=== PATIENT | male | born 1945 | race Caucasian/White ===

== ENCOUNTER → 2017-04-09 | Outpatient (CLI) | payer BC, MEDICARE | END | disposition home or self-care (01) | LOC: LABWHC1 14:00 | PROVIDERS: ATTEND Internal Medicine Clinical Cardiac Electrophysiology | DX: Z53.9 Procedure and treatment not carried out, unspecified reason (principal) ==

== ENCOUNTER 2017-07-07 12:22 | Day surgery (SDC) | payer MEDICARE ==
[2017-07-06 11:20] VITALS: BMI 29.1
[~2017-07-07 12:22] MED LIST: LACTATED RINGERS 1,000 ML IV SCH; MIDAZOLAM 2 MG/2 ML VIAL IV PRN; ceFAZolin 1,000 MG in SODIUM CHLORIDE 0.9% IRRIGATIO 250 ML IRRIGATION ONE; ceFAZolin IN SWFI 2 GM/20 ML SYRINGE IVP ONE; fentaNYL (PF) 50 MCG/ML 2 ML AMP IV PRN
[2017-07-07 15:22] LABS: Basophils % (A) 0 %; Eosinophils # (A) 0.1 k/uL (0-0.7); Eosinophils % (A) 2 %; HCT 46.5 % (39.0-53.0); HGB 14.6 gm/dL (13.0-17.5); Hypochromasia Slight; Lymphocytes # (A) 0.9 k/uL (1.0-4.8); Lymphocytes % (A) 14 %; MCHC 31.4 g/dL (31.0-37.0); Mean Platelet Volume 10.2; Monocytes # (A) 0.6 k/uL (0-1.0); Monocytes % (A) 10 %; Neutrophils # (A) 4.6 k/uL (1.3-7.7); Neutrophils % (A) 72 %; Platelet Count 187 k/uL (150-450); RBC 5.23 m/uL (4.30-5.90); RDW 14.8 % (11.5-15.5); WBC 6.4 k/uL (3.8-10.6)
[2017-07-07 15:30] LABS: Calcium 9.3 mg/dL (8.4-10.2)
[2017-07-07] MEDS ORDERED: MIDAZOLAM 2 MG/2 ML VIAL ONE (16:16)
[2017-07-07] MEDS ORDERED: IV FLUID CONTINUATION 1,000 ML IV ONE (16:16)
[2017-07-07] MEDS ORDERED: KETAMINE 10 MG/ML 20 ML VIAL ONE (16:16)
[2017-07-07] MEDS ORDERED: fentaNYL (PF) 50 MCG/ML 2 ML AMP ONE (16:16)
[2017-07-07] MEDS ORDERED: PROPOFOL 10 MG/ML 20 ML VIAL IV ONE (16:16)
[2017-07-07] MEDS ORDERED: IOPAMIDOL-250 50ML BTL IV ONE (16:35)
[2017-07-07] MEDS ORDERED: LIDOCAINE 1% INJ 10MG/ML (20 ML MDV) ONE ×2 (16:42)
[2017-07-07] MEDS ORDERED: ACETAMINOPHEN TAB 325 MG TAB PO PRN (16:43)
[2017-07-07] MEDS ORDERED: HYDROcodone/APAP 5-325MG 1 EACH TAB PO PRN (16:43)
[2017-07-07] MEDS ORDERED: LIDOCAINE 1% INJ 10MG/ML (20 ML MDV) SQ ONE (16:58)
[2017-07-07] MEDS ORDERED: LOSARTAN 25 MG TAB PO SCH (18:15)
[2017-07-07] MEDS ORDERED: FINASTERIDE 5 MG TAB PO SCH (18:15)
[2017-07-07] MEDS ORDERED: CLOPIDOGREL 75 MG TAB PO SCH (18:15)
[2017-07-07] MEDS ORDERED: SPIRONOLACTONE 25 MG TAB PO SCH (18:15)
[2017-07-07] MEDS ORDERED: FAMOTIDINE 20 MG TAB PO SCH (18:15)
[2017-07-07] MEDS ORDERED: ACETAMINOPHEN IV (For NPO) 1,000 MG in EMPTY BAG 1 BAG IVPB ONE (19:00)
--- NOTE | 2017-07-07 19:36 | CE ---
CARDIAC ELECTROPHYSIOLOGY REPORT Kulwant Fernandes is a 72-year-old male patient with ischemic cardiomyopathy, old [place], coronary artery bypass grafting several years back, severe LV dysfunction, ejection fraction by recent stress test was 28%. Previously, his ejection fraction was 35%. He is on appropriate medical treatment. He also has CKD stage 3, sick sinus syndrome with chronotropic incompetence, frequent PVCs, ventricular couplets, nonsustained ventricular tachycardia, who underwent a dual-chamber ICD for primary prevention of sudden cardiac and management of sick sinus syndrome. PROCEDURE: The patient brought to the EP lab in a fasting state. Written informed consent was obtained prior to the procedure. The left shoulder area was prepped and draped as per protocol. 1% lidocaine was used for local anesthesia. A 4 cm incision was made parallel to the deltopectoral groove, about 1.5 cm medial to it. The incision was carried down to the level of the pectoralis muscle. A subfascial pocket was made. Hemostasis was assured. The left axillary vein was accessed at 2 separate points under fluoroscopy and via appropriately-sized introducer sheaths, 2 leads were positioned in the right heart. The atrial lead was a model #5076, 52 cm in length and serial number [id number]. P waves were 3.2 mV, pacing impedance 718 ohms, pacing threshold 0.4 V at 0.5 milliseconds. 10 V test was negative. The RV ICD lead was single coil DF4-lead Medtronic model #6935M, 62 cm in length and serial number [id number]. This was positioned in the RV apex. R-waves were 18.9 mV, pacing impedance 885 ohms, pacing threshold 1.1 V at 0.5 milliseconds. 10 V test negative. Both leads were secured to the underlying pectoralis fascia using 2 nonabsorbable sutures. Pocket was irrigated with antibiotic solution. Leads were connected to the generator (Medtronic Evera XT model number [id number], serial [id number]. The leads and generator were placed in the subfascial pocket the wound was closed in 3 layers and dressed per protocol. DEFIBRILLATOR THRESHOLD TESTING UNDER ANESTHESIA: Shock and T-wave protocol was used to induce ventricular fibrillation. This was adequately and appropriately detected at least sensitivity and successfully internally defibrillated with a 10 joule shock. Charge time 2.1 seconds. No post shock noise. No drop-outs. Shock impedance 68 ohms. RESULT: Successful dual chamber ICD implantation. PLAN: Maximize beta blockers further and patient is programmed to rate responsiveness with MVP mode to avoid RV pacing as well as appropriate antitachycardia pacing, cardioversion and defibrillations. NADIRA / JUANITA: [id number] /
[2017-07-07] MEDS: CARVEDILOL 12.5 MG TAB PO SCH (21:11)
[2017-07-07] MEDS: ceFAZolin IN SWFI 2 GM/20 ML SYRINGE IVP SCH (22:32)
[2017-07-08] MEDS: ceFAZolin IN SWFI 2 GM/20 ML SYRINGE IVP SCH ×3 (03:30→15:10)
--- NOTE | 2017-07-08 07:47 | P.DS ---
Providers Attending physician: Beltran Castillo Primary care physician: [place] [facility] Course: Patient is doing well. He denies any chest discomfort no dizziness lightheadedness or palpitations. His ICD site is healed well Heart sounds are normal normal S1 normal S2 no murmurs no gallop no rub normal breath sounds no rhonchi no crackles soft abdomen Extremities are warm no edema No hematoma ICD site Vitals are stable he is afebrile 97.6F, pulse rate in the 60s, normal respirations, blood pressure 150/69 mmHg Impression 71-year-old male patient with known CAD, coronary artery bypass grafting 2013 Old myocardial infarction Ischemic cardio myopathy with chronic systolic dysfunction of 28-35% Congestive heart failure, systolic On appropriate medical treatment Sick sinus syndrome with chronotropic incompetence Frequent nonsustained ventricular tachycardia for high PVC burden GFR 53, chronic kidney disease stage III Dual-chamber ICD implanted yesterday Plan Discharge home after completion of IV antibiotics, device interrogation and chest x-ray Continue current medications and follow-up in the device clinic in 5 days for follow-up with Dr. Dumont in 3-4 months Plan - Discharge Summary Discharge Rx Participant: Yes New Discharge Prescriptions: Continue RX: Finasteride [Proscar] 5 mg PO W/SUPPER RX: Spironolactone [Aldactone] 25 mg PO W/SUPPER RX: Aspirin [Adult Low Dose Aspirin EC] 81 mg PO DAILY RX: Tamsulosin [Flomax] 0.4 mg PO DAILY RX: Famotidine 20 mg PO W/SUPPER RX: Atorvastatin [Lipitor] 40 mg PO DAILY RX: Clopidogrel [Plavix] 75 mg PO W/SUPPER RX: Losartan [Cozaar] 25 mg PO W/SUPPER RX: Carvedilol [Coreg*] 18.75 mg PO BID Discharge Medication List RX: Aspirin [Adult Low Dose Aspirin EC] 81 mg PO DAILY 07/06/17 [History] RX: Atorvastatin [Lipitor] 40 mg PO DAILY 07/06/17 [History] RX: Carvedilol [Coreg*] 18.75 mg PO BID 07/06/17 [History] RX: Clopidogrel [Plavix] 75 mg PO W/SUPPER 07/06/17 [History] RX: Famotidine 20 mg PO W/SUPPER 07/06/17 [History] RX: Finasteride [Proscar] 5 mg PO W/SUPPER 07/06/17 [History] RX: Losartan [Cozaar] 25 mg PO W/SUPPER 07/06/17 [History] RX: Spironolactone [Aldactone] 25 mg PO W/SUPPER 07/06/17 [History] RX: Tamsulosin [Flomax] 0.4 mg PO DAILY 07/06/17 [History] Follow up Appointment(s)/Referral(s): Beltran Castillo MD [STAFF PHYSICIAN] - As Needed (Device clinic follow-up in 5 days Follow-up with Dr. Dumont in 3-4 months) Activity/Diet/Wound Care/Special Instructions: PATIENT EDUCATION MATERIAL Instructions following a heart rhythm device implant. 1. Keep dressing DRY for 5 DAYS. You may cover the area with Saran or Cling Wrap, prior to a shower. 2. The dressing will be removed in the Device Clinic at [facility]. Absorbable sutures were used to close the wound. 3. Avoid raising the left arm above the shoulder level. 4 week restriction 4. Avoid arm movements, like backscratching, rubbing the head, or pulling on a cord. 4 weeks restriction 5. Gentle range of motion movements of the shoulder, closest to the incision should be performed to avoid a frozen shoulder. (Pendulum exercises of the shoulder) 6. The opposite arm may be used freely. 7. Avoid driving for 7 days. 8. Avoid activities such as golfing, swimming, weed whacking, lifting more than 10 pounds weight, bowling, gymnastics and weight training/lifting. (6 weeks restriction) 9. Activities such as wood chopping with an axe, pull-ups in the gymnasium, power lifting, arc-welding, being close to home induction cooktops will always be a problem. 10. Arm sling is a mere reminder not to raise the arm above the head. However you do not need to keep the arm completely immobilized. Your free to move the arm and use it and for normal activities. In case of any problems, please call [facility], Edgardo Narvaez, @ [phone], Attention: Device Clinic Discharge patient home after completion of IV antibiotics, chest x-ray and device interrogation May ambulate in the hallways until then Continue all medications unchanged Device clinic follow-up in 5 days Follow-up with Dr. Dumont in 3-4 months Discharge Disposition: HOME SELF-CARE
[2017-07-08] MEDS: CARVEDILOL 12.5 MG TAB PO SCH (07:50)
[2017-07-08 08:15] VITALS: RESP 18
[2017-07-08] MEDS ORDERED: ATORVASTATIN 40 MG TAB PO SCH (09:00)
[2017-07-08] MEDS ORDERED: TAMSULOSIN 0.4 MG CAP.ER.24H PO SCH (09:00)
[2017-07-08] MEDS ORDERED: ASPIRIN 81 MG PO SCH (09:00)
--- NOTE | 2017-07-08 09:15 | XR ---
EXAMINATION TYPE: XR chest 2V DATE OF EXAM: 07/08/2017 COMPARISON: 11/21/2012 TECHNIQUE: PA and lateral views submitted. HISTORY: Lead placement check FINDINGS: The lungs are clear and there is no pneumothorax, pleural effusion, or focal pneumonia. The heart i s enlarged and there is a cardiac device with postsurgical changes. Cardiac device is seen with posts urgical changes. Interstitium is prominent. Atherosclerotic change of aorta. IMPRESSION: 1. No postprocedural complication. Coarsened interstitium suggests chronic interstitial lung disease or congestion. Correlate clinically.
[2017-07-08 12:21] VITALS: BP 158/86; PULSE 62; TEMP 97.6
[2017-07-08] MEDS: SODIUM CHLORIDE 0.9% 1,000 ML IV SCH ×2 (15:08)
== END 2017-07-08 15:35 | disposition home or self-care (01) ==
LOC: CATHEP 12:22 → 3OBS 17:56 → CATHEP 07-08 15:35
PROVIDERS: ATTEND Internal Medicine Clinical Cardiac Electrophysiology
DX: I25.5 Ischemic cardiomyopathy (principal); I49.5 Sick sinus syndrome; Z00.6 Encounter for examination for normal comparison and control in clinical research program; I25.10 Atherosclerotic heart disease of native coronary artery without angina pectoris; I13.0 Hypertensive heart and chronic kidney disease with heart failure and stage 1 through stage 4 chronic kidney disease, or unspecified chronic kidney disease; N18.3 Chronic kidney disease, stage 3 (moderate); I50.22 Chronic systolic (congestive) heart failure; Z87.891 Personal history of nicotine dependence; E78.5 Hyperlipidemia, unspecified; Z95.1 Presence of aortocoronary bypass graft; I25.2 Old myocardial infarction; I47.2 Ventricular tachycardia; Z79.82 Long term (current) use of aspirin; Z79.899 Other long term (current) drug therapy; Z79.02 Long term (current) use of antithrombotics/antiplatelets; Z88.2 Allergy status to sulfonamides
CPT/HCPCS: 93641; 33249; 80048; 85025; 71046; C1769 ×2; C1892; C1898; C1895; C1721; S0138; J0690 ×3; J2001; Q9966

== ENCOUNTER 2017-10-05 19:52 | Observation (INO) | payer MEDICARE ==
[2017-10-05] MEDS ORDERED: SODIUM CHLORIDE 0.9% 1,000 ML IV STA (20:12)
--- NOTE | 2017-10-05 20:15 | ED ---
General Adult HPI - General Chief complaint: Fall Stated complaint: FALL Time Seen by Provider: 10/05/17 20:06 Source: patient, EMS, RN notes reviewed Mode of arrival: EMS Limitations: no limitations - History of Present Illness Initial comments: Patient is a pleasant 72-year-old male presenting to the emergency Department with generalized weakness. Patient states he did not sleep well last night. Patient did wake up early. Patient states around noon slid out of his chair and was too weak to get back up. Patient did have Meals on Wheels come to his house around 1:00. They offered to call the angle however patient refused. Patient states he's been laying on the ground since noon unable to get up. Patient states he does feel somewhat dehydrated. Patient states prior to noon today he was eating and drinking normally. Patient states weakness is diffuse, more so on bilateral legs. Patient denies any confusion. Patient denies any injury. Patient states normally he is able to take care of himself. - Related Data Home Medications Medication Instructions Recorded Confirmed Aspirin [Adult Low Dose Aspirin EC] 81 mg PO DAILY 07/06/17 10/05/17 Atorvastatin [Lipitor] 40 mg PO HS 07/06/17 10/05/17 Carvedilol [Coreg*] 25 mg PO BID 07/06/17 10/05/17 Famotidine 20 mg PO HS 07/06/17 10/05/17 Finasteride [Proscar] 5 mg PO HS 07/06/17 10/05/17 Losartan [Cozaar] 25 mg PO HS 07/06/17 10/05/17 Tamsulosin [Flomax] 0.4 mg PO DAILY 07/06/17 10/05/17 Allergies Allergy/AdvReac Type Severity Reaction Status Date / Time Sulfa (Sulfonamide Allergy Itching Verified 10/05/17 20:36 Antibiotics) Review of Systems ROS Statement: Those systems with pertinent positive or pertinent negative responses have been documented in the HPI. ROS Other: All systems not noted in ROS Statement are negative. Constitutional: Denies: fever Eyes: Denies: eye pain ENT: Denies: ear pain Respiratory: Denies: cough Cardiovascular: Denies: chest pain Endocrine: Denies: fatigue Gastrointestinal: Denies: abdominal pain Genitourinary: Denies: dysuria Musculoskeletal: Denies: back pain Skin: Denies: rash Neurological: Reports: as per HPI. Denies: headache, confusion Past Medical History Past Medical History: Heart Failure, CVA/TIA, Hyperlipidemia, Prostate Disorder , Renal Disease, Sleep Apnea/CPAP/BIPAP Additional Past Medical History / Comment(s): TIA's before CABG, see Dr Castillo H&P, no cpap used, hx kidney stones, enlarged prostate, cardiomyopathy History of Any Multi-Drug Resistant Organisms: None Reported Past Surgical History: Coronary Bypass/CABG, Heart Catheterization, Hernia Repair, Tonsillectomy Additional Past Surgical History / Comment(s): quad. bypass 2-3 yrs ago, stents keisha legs, growth removed from jaw Past Anesthesia/Blood Transfusion Reactions: Motion Sickness Past Psychological History: No Psychological Hx Reported Smoking Status: Former smoker Past Alcohol Use History: None Reported Past Drug Use History: None Reported - Past Family History Mother Family Medical History: No Reported History General Exam Limitations: no limitations General appearance: alert, in no apparent distress Head exam: Present: atraumatic Eye exam: Present: normal appearance, PERRL, EOMI. Absent: nystagmus ENT exam: Present: normal oropharynx Neck exam: Present: normal inspection. Absent: tenderness Respiratory exam: Present: normal lung sounds bilaterally Cardiovascular Exam: Present: regular rate, normal rhythm Expanded Peripheral pulses: 2+: Radial (R), Radial (L), Dorsalis Pedis (R), Dorsalis Pedis (L) GI/Abdominal exam: Present: soft. Absent: tenderness Extremities exam: Present: normal inspection. Absent: pedal edema, calf tenderness Back exam: Present: normal inspection. Absent: vertebral tenderness Neurological exam: Present: alert, oriented X3, CN II-XII intact. Absent: motor sensory deficit Expanded Neurological exam: Present: protecting the airway Patient oriented to: Present: person, place, time Speech: Present: fluid speech Cranial nerves: EOM's Intact: Normal Motor strength exam: RUE: 5, LUE: 5, RLE: 5, LLE: 5 Eye Response: (4) open spontaneously Motor Response: (6) obeys commands Verbal Response: (5) oriented Psychiatric exam: Present: normal affect, normal mood Skin exam: Present: normal color Course Vital Signs 10/05/17 10/05/17 10/05/17 19:58 21:17 21:42 Temperature 97.8 F Pulse Rate 74 71 77 Respiratory 18 17 18 Rate Blood Pressure 139/87 137/92 151/94 O2 Sat by Pulse 95 95 95 Oximetry 10/05/17 23:35 Temperature Pulse Rate 74 Respiratory 16 Rate Blood Pressure 187/104 O2 Sat by Pulse 96 Oximetry EKG Findings - EKG Comments: EKG Findings:: Normal sinus rhythm 76. MI 184. QRS 112. QT 416. QTC 468. Left axis. Poor R-wave progression. Inferior Q waves as well as Q waves V4 V5. Left anterior fascicular block. No acute ST change. Medical Decision Making - Medical Decision Making Patient reevaluated and resting comfortably in bed. Patient updated on results and plan. Case was discussed in detail with Dr. Wakefield, covering for Dr. De La Rosa, who admits for Dr. Wright. He will admit with consult for neurology. - Lab Data Result diagrams: 10/05/17 20:07 10/05/17 20:07 Lab Results 10/05/17 10/05/17 10/05/17 Range/Units 20:07 20:07 20:07 WBC 7.4 (3.8-10.6) k/uL RBC 4.98 (4.30-5.90) m/uL Hgb 12.6 L (13.0-17.5) gm/dL Hct 41.4 (39.0-53.0) % MCV 83.1 (80.0-100.0) fL MCH 25.2 (25.0-35.0) pg MCHC 30.4 L (31.0-37.0) g/dL RDW 17.8 H (11.5-15.5) % Plt Count 136 L (150-450) k/uL Neutrophils % (Manual) 77 % Lymphocytes % (Manual) 6 % Monocytes % (Manual) 16 % Basophils % (Manual) 1 % Neutrophils # (Manual) 5.70 (1.3-7.7) k/uL Lymphocytes # (Manual) 0.44 L (1.0-4.8) k/uL Monocytes # (Manual) 1.18 H (0-1.0) k/uL Basophils # (Manual) 0.07 (0-0.2) k/uL Nucleated RBCs 0 (0-0) /100 WBC Hypochromasia Marked Poikilocytosis Slight Anisocytosis Slight Fragmented RBCs Present PT (9.0-12.0) sec INR (<1.2) APTT (22.0-30.0) sec Sodium 142 (137-145) mmol/L Potassium 4.1 (3.5-5.1) mmol/L Chloride 111 H (98-107) mmol/L Carbon Dioxide 21 L (22-30) mmol/L Anion Gap 10 mmol/L BUN 24 H (9-20) mg/dL Creatinine 1.40 H (0.66-1.25) mg/dL Est GFR (CKD-EPI)AfAm 57 (>60 ml/min/1.73 sqM) Est GFR (CKD-EPI)NonAf 49 (>60 ml/min/1.73 sqM) Glucose 110 H (74-99) mg/dL Lactic Ac Sepsis Rflx Plasma Lactic Acid Alex (0.7-2.0) mmol/L Calcium 9.3 (8.4-10.2) mg/dL Phosphorus 3.8 (2.5-4.5) mg/dL Magnesium 1.9 (1.6-2.3) mg/dL Total Bilirubin 4.3 H (0.2-1.3) mg/dL AST 24 (17-59) U/L ALT 30 (21-72) U/L Alkaline Phosphatase 84 (38-126) U/L Total Creatine Kinase 66 (55-170) U/L CK-MB (CK-2) 1.2 (0.0-2.4) ng/mL CK-MB (CK-2) Rel Index 1.8 Troponin I 0.033 (0.000-0.034) ng/mL Total Protein 6.0 L (6.3-8.2) g/dL Albumin 3.5 (3.5-5.0) g/dL TSH 2.510 (0.465-4.680) mIU/L Free T4 2.11 (0.78-2.19) ng/dL Free T3 pg/mL 2.9 (2.8-5.3) pg/ml Urine Color Urine Appearance (Clear) Urine pH (5.0-8.0) Ur Specific Bonner (1.001-1.035) Urine Protein (Negative) Urine Glucose (UA) (Negative) Urine Ketones (Negative) Urine Blood (Negative) Urine Nitrite (Negative) Urine Bilirubin (Negative) Urine Urobilinogen (<2.0) mg/dL Ur Leukocyte Esterase (Negative) Urine RBC (0-5) /hpf Urine WBC (0-5) /hpf Ur Squamous Epith Cells (0-4) /hpf Hyaline Casts (0-2) /lpf Urine Mucus (None) /hpf 10/05/17 10/05/17 10/05/17 Range/Units 20:07 20:07 20:45 WBC (3.8-10.6) k/uL RBC (4.30-5.90) m/uL Hgb (13.0-17.5) gm/dL Hct (39.0-53.0) % MCV (80.0-100.0) fL MCH (25.0-35.0) pg MCHC (31.0-37.0) g/dL RDW (11.5-15.5) % Plt Count (150-450) k/uL Neutrophils % (Manual) % Lymphocytes % (Manual) % Monocytes % (Manual) % Basophils % (Manual) % Neutrophils # (Manual) (1.3-7.7) k/uL Lymphocytes # (Manual) (1.0-4.8) k/uL Monocytes # (Manual) (0-1.0) k/uL Basophils # (Manual) (0-0.2) k/uL Nucleated RBCs (0-0) /100 WBC Hypochromasia Poikilocytosis Anisocytosis Fragmented RBCs PT 13.5 H (9.0-12.0) sec INR 1.5 H (<1.2) APTT 22.1 (22.0-30.0) sec Sodium (137-145) mmol/L Potassium (3.5-5.1) mmol/L Chloride (98-107) mmol/L Carbon Dioxide (22-30) mmol/L Anion Gap mmol/L BUN (9-20) mg/dL Creatinine (0.66-1.25) mg/dL Est GFR (CKD-EPI)AfAm (>60 ml/min/1.73 sqM) Est GFR (CKD-EPI)NonAf (>60 ml/min/1.73 sqM) Glucose (74-99) mg/dL Lactic Ac Sepsis Rflx Plasma Lactic Acid Alex 2.3 H* (0.7-2.0) mmol/L Calcium (8.4-10.2) mg/dL Phosphorus (2.5-4.5) mg/dL Magnesium (1.6-2.3) mg/dL Total Bilirubin (0.2-1.3) mg/dL AST (17-59) U/L ALT (21-72) U/L Alkaline Phosphatase (38-126) U/L Total Creatine Kinase (55-170) U/L CK-MB (CK-2) (0.0-2.4) ng/mL CK-MB (CK-2) Rel Index Troponin I (0.000-0.034) ng/mL Total Protein (6.3-8.2) g/dL Albumin (3.5-5.0) g/dL TSH (0.465-4.680) mIU/L Free T4 (0.78-2.19) ng/dL Free T3 pg/mL (2.8-5.3) pg/ml Urine Color Yellow Urine Appearance Clear (Clear) Urine pH 5.5 (5.0-8.0) Ur Specific Bonner 1.019 (1.001-1.035) Urine Protein 2+ H (Negative) Urine Glucose (UA) Negative (Negative) Urine Ketones Negative (Negative) Urine Blood Trace H (Negative) Urine Nitrite Negative (Negative) Urine Bilirubin 1+ H (Negative) Urine Urobilinogen 4.0 (<2.0) mg/dL Ur Leukocyte Esterase Small H (Negative) Urine RBC 1 (0-5) /hpf Urine WBC 7 H (0-5) /hpf Ur Squamous Epith Cells 3 (0-4) /hpf Hyaline Casts 3 H (0-2) /lpf Urine Mucus Few H (None) /hpf 10/05/17 Range/Units 20:46 WBC (3.8-10.6) k/uL RBC (4.30-5.90) m/uL Hgb (13.0-17.5) gm/dL Hct (39.0-53.0) % MCV (80.0-100.0) fL MCH (25.0-35.0) pg MCHC (31.0-37.0) g/dL RDW (11.5-15.5) % Plt Count (150-450) k/uL Neutrophils % (Manual) % Lymphocytes % (Manual) % Monocytes % (Manual) % Basophils % (Manual) % Neutrophils # (Manual) (1.3-7.7) k/uL Lymphocytes # (Manual) (1.0-4.8) k/uL Monocytes # (Manual) (0-1.0) k/uL Basophils # (Manual) (0-0.2) k/uL Nucleated RBCs (0-0) /100 WBC Hypochromasia Poikilocytosis Anisocytosis Fragmented RBCs PT (9.0-12.0) sec INR (<1.2) APTT (22.0-30.0) sec Sodium (137-145) mmol/L Potassium (3.5-5.1) mmol/L Chloride (98-107) mmol/L Carbon Dioxide (22-30) mmol/L Anion Gap mmol/L BUN (9-20) mg/dL Creatinine (0.66-1.25) mg/dL Est GFR (CKD-EPI)AfAm (>60 ml/min/1.73 sqM) Est GFR (CKD-EPI)NonAf (>60 ml/min/1.73 sqM) Glucose (74-99) mg/dL Lactic Ac Sepsis Rflx Y Plasma Lactic Acid Alex (0.7-2.0) mmol/L Calcium (8.4-10.2) mg/dL Phosphorus (2.5-4.5) mg/dL Magnesium (1.6-2.3) mg/dL Total Bilirubin (0.2-1.3) mg/dL AST (17-59) U/L ALT (21-72) U/L Alkaline Phosphatase (38-126) U/L Total Creatine Kinase (55-170) U/L CK-MB (CK-2) (0.0-2.4) ng/mL CK-MB (CK-2) Rel Index Troponin I (0.000-0.034) ng/mL Total Protein (6.3-8.2) g/dL Albumin (3.5-5.0) g/dL TSH (0.465-4.680) mIU/L Free T4 (0.78-2.19) ng/dL Free T3 pg/mL (2.8-5.3) pg/ml Urine Color Urine Appearance (Clear) Urine pH (5.0-8.0) Ur Specific Bonner (1.001-1.035) Urine Protein (Negative) Urine Glucose (UA) (Negative) Urine Ketones (Negative) Urine Blood (Negative) Urine Nitrite (Negative) Urine Bilirubin (Negative) Urine Urobilinogen (<2.0) mg/dL Ur Leukocyte Esterase (Negative) Urine RBC (0-5) /hpf Urine WBC (0-5) /hpf Ur Squamous Epith Cells (0-4) /hpf Hyaline Casts (0-2) /lpf Urine Mucus (None) /hpf - Radiology Data Radiology results: report reviewed (Computed tomography scan of the brain shows no acute process. Possible normal pressure hydrocephalus.), image reviewed ( Chest x-ray shows no definite acute process.) Disposition Clinical Impression: Weakness Disposition: ADMITTED IP TO THIS HOSP Is patient prescribed a controlled substance at d/c from ED?: No Referrals: Emilee Wright DO [Primary Care Provider] - 1-2 days Decision Time: 00:05
[2017-10-05 20:37] LABS: Albumin 3.5 g/dL (3.5-5.0); Calcium 9.3 mg/dL (8.4-10.2); Magnesium 1.9 mg/dL (1.6-2.3); Phosphorus 3.8 mg/dL (2.5-4.5); Potassium 4.1 mmol/L (3.5-5.1); Total Bilirubin 4.3 mg/dL (0.2-1.3)
[2017-10-05 20:41] LABS: Anisocytosis Slight; HCT 41.4 % (39.0-53.0); HGB 12.6 gm/dL (13.0-17.5); Hypochromasia Marked; MCH 25.2 pg (25.0-35.0); MCHC 30.4 g/dL (31.0-37.0); MCV 83.1 fL (80.0-100.0); Mean Platelet Volume 9.2; Platelet Count 136 k/uL (150-450); Poikilocytosis Slight; RBC 4.98 m/uL (4.30-5.90); RDW 17.8 % (11.5-15.5); WBC 7.4 k/uL (3.8-10.6)
[2017-10-05 20:44] LABS: INR 1.5 (<1.2); Partial Thromboplastin Time 22.1 sec (22.0-30.0); Prothrombin Time 13.5 sec (9.0-12.0)
[2017-10-05 20:53] LABS: T4, Free (Free Thyroxine) 2.11 ng/dL (0.78-2.19)
--- NOTE | 2017-10-05 21:00 | CT ---
EXAMINATION: CT brain wo con DATE AND TIME: 10/05/2017 8:51 PM ORDERING PROVIDER: Vijay Panda DO CLINICAL INDICATION: weakness after fall injury today TECHNIQUE: Standard departmental protocol. 839.50 mGy-cm. COMPARISON: 11/18/2012 1 DESCRIPTION: The calvarium is intact. There is no intracranial hemorrhage. There is no mass or mass e ffect. There is no definite new attenuation defect. There is redemonstration of the previously seen small right basal ganglia focus of encephalomalacia c onsistent with a remote small lenticulostriate infarction in the vascular territory of the right midd le cerebral artery. Atherosclerotic intimal calcifications are redemonstrated within the posterior an d anterior circulation. Remainder of the intra-axial and extra-axial compartment examination is unremarkable. The paranasal s inuses, middle ear cavities, and mastoid sinus air cells are clear. The orbits are intact. IMPRESSION: 1. NO ACUTE PROCESS. 2. The ventricles are diffusely more prominent than the sulcal pattern and basal cisterns, this find ing can correlate with a clinical diagnosis of normal pressure hydrocephalus.
[2017-10-05 21:06] LABS: Creatine Kinase MB 1.2 ng/mL (0.0-2.4); Troponin I 0.033 ng/mL (0.000-0.034)
--- NOTE | 2017-10-05 21:21 | XR ---
EXAMINATION: XR chest 2V DATE AND TIME: 10/05/2017 9:00 PM ORDERING PROVIDER: Vijay Panda DO CLINICAL INDICATION: Weakness TECHNIQUE: AP and lateral COMPARISON: 07/08/2017 DESCRIPTION: Cardiac pacemaker, sternal sutures, mediastinal clips and EKG leads. Moderately enlarged cardiac silhouette redemonstrated. The lungs are clear. The pleural spaces are negative, with the exception of the lateral view posteriorly which show blunti ng of the posterior costophrenic angle, suggesting tiny bilateral pleural effusions. The skeletal structures and soft tissues are without acute findings. IMPRESSION: No definite acute process. Minimal bilateral pleural effusions noted, of doubtful clinical significance.
[2017-10-05] MEDS ORDERED: SODIUM CHLORIDE 0.9% 500 ML 500 ML IV STA (21:40)
[2017-10-05 21:47] LABS: Basophils # (M) 0.07 k/uL (0-0.2); Lymphocytes # (M) 0.44 k/uL (1.0-4.8); Monocytes # (M) 1.18 k/uL (0-1.0); Neutrophils % (M) 77 %; Nucleated Red Blood Cells 0 /100 WBC (0-0); RBC Fragments Present; Total Cells Counted 100
[2017-10-05 22:59] LABS: Appearance,Urine Clear (Clear); Bilirubin,Urine 1+ (Negative); Blood,Urine Trace (Negative); Color,Urine Yellow; Glucose,Urine (UA) Negative (Negative); Hyaline Casts,Urine 3 /lpf (0-2); Ketones,Urine Negative (Negative); Leukocyte Esterase,Urine Small (Negative); Mucus,Urine Few /hpf; Nitrite,Urine Negative (Negative); PH, Urine 5.5 (5.0-8.0); Protein,Urine 2+ (Negative); RBC,Urine 1 /hpf (0-5); Specific Gravity,Urine 1.019 (1.001-1.035); Squamous Epithelial Cell,Urine 3 /hpf (0-4); WBC,Urine 7 /hpf (0-5)
[2017-10-06] MEDS ORDERED: NALOXONE 0.4 MG/ML 1 ML VIAL IV PRN (00:05)
[2017-10-06 01:14] VITALS: BMI 32.5
[2017-10-06] MEDS: SODIUM CHLORIDE 0.9% 1,000 ML IV SCH ×2 (01:21→09:37)
[2017-10-06] MEDS: CARVEDILOL 12.5 MG TAB PO SCH ×2 (06:17→17:25)
[2017-10-06] MEDS: ASPIRIN 81 MG PO SCH (09:33)
[2017-10-06] MEDS: TAMSULOSIN 0.4 MG CAP.ER.24H PO SCH (09:33)
--- NOTE | 2017-10-06 11:55 | P.HPIM ---
History of Present Illness H&P Date: 10/06/17 Chief Complaint: Generalized weakness This is a 72-year-old male patient of Dr. Emilee Wright. Patient presents to the emergency room with complaints of generalized weakness patient states that he was sitting up in his chair and slid out of his chair and was then too weak to get back up. Patient has a known past medical history of heart failure, CVA , hyperlipidemia, prostate disorder, renal disorder, sleep apnea, TIAs and coronary artery bypass 3 years ago. Chest x-ray completed emergency room showing no definitive acute process. Minimal bilateral pleural effusions noted of doubtful clinical significance. CT of the brain completed showing no acute process, the ventricles are diffusely more prominent than the circular pattern and basals cisterns, this finding can correlate with clinical significance of normal pressure hydrocephalus. Neurology consult has been placed. EKG completed showing normal showing normal sinus rhythm, low-voltage QRS, low anterior fascicular block, inferior infarct age undetermined and possible anterior lateral infarct age at age undetermined. Patient denies chest pain or shortness of breath at this time. Denies nausea vomiting or diarrhea. Awaiting neurology consults Review of Systems Please refer to HPI otherwise unremarkable Past Medical History Past Medical History: Heart Failure, CVA/TIA, Hyperlipidemia, Prostate Disorder , Renal Disease, Sleep Apnea/CPAP/BIPAP Additional Past Medical History / Comment(s): TIA's before CABG, see Dr Castillo H&P, no cpap used, hx kidney stones, enlarged prostate, cardiomyopathy History of Any Multi-Drug Resistant Organisms: None Reported Past Surgical History: Coronary Bypass/CABG, Heart Catheterization, Hernia Repair, Tonsillectomy Additional Past Surgical History / Comment(s): quad. bypass 2-3 yrs ago, stents keisha legs, growth removed from jaw Past Anesthesia/Blood Transfusion Reactions: Motion Sickness Past Psychological History: No Psychological Hx Reported Smoking Status: Former smoker Past Alcohol Use History: None Reported Additional Past Alcohol Use History / Comment(s): quit smoking age 53, started smoking age 16, 1PPD Past Drug Use History: None Reported - Past Family History Mother Family Medical History: No Reported History Medications and Allergies Home Medications Medication Instructions Recorded Confirmed Type Aspirin [Adult Low Dose Aspirin EC] 81 mg PO DAILY 07/06/17 10/05/17 History Atorvastatin [Lipitor] 40 mg PO HS 07/06/17 10/05/17 History Carvedilol [Coreg*] 25 mg PO BID 07/06/17 10/05/17 History Famotidine 20 mg PO HS 07/06/17 10/05/17 History Finasteride [Proscar] 5 mg PO HS 07/06/17 10/05/17 History Losartan [Cozaar] 25 mg PO HS 07/06/17 10/05/17 History Tamsulosin [Flomax] 0.4 mg PO DAILY 07/06/17 10/05/17 History Allergies Allergy/AdvReac Type Severity Reaction Status Date / Time Sulfa (Sulfonamide Allergy Itching Verified 10/05/17 20:36 Antibiotics) Physical Exam Vitals: Vital Signs Temp Pulse Pulse Resp BP BP Pulse Ox 10/06/17 09:30 168/91 10/06/17 07:00 97.8 F 72 14 175/104 94 L 10/06/17 06:21 184/111 10/06/17 06:18 174/108 10/06/17 00:39 97.5 F L 78 18 167/99 98 10/05/17 23:35 74 16 187/104 96 10/05/17 21:42 77 18 151/94 95 10/05/17 21:17 71 17 137/92 95 10/05/17 19:58 97.8 F 74 18 139/87 95 Intake and Output 10/05/17 10/06/17 10/06/17 22:59 06:59 14:59 Intake Total 375 Balance 375 Intake: Intake, IV Titration 375 Amount Sodium Chloride 0.9% 1, 375 000 ml @ 75 mls/hr IV . [id number] [facility] Rx#:[id number] Other: Voiding Method Toilet Urinal Weight 108.862 kg 108.862 kg Head normocephalic Neck supple Lungs bilateral wheezing Heart regular rate and rhythm S1-S2, no rub or gallop Abdomen is soft nontender nondistended positive bowel sounds no hepatosplenomegaly Extremities no edema Neuro alert and orientated to 3 Results CBC & Chem 7: 10/05/17 20:07 10/05/17 20:07 Labs: Abnormal Lab Results - Last 24 Hours (Table) 10/05/17 10/05/17 10/05/17 Range/Units 20:07 20:07 20:07 Hgb 12.6 L (13.0-17.5) gm/dL MCHC 30.4 L (31.0-37.0) g/dL RDW 17.8 H (11.5-15.5) % Plt Count 136 L (150-450) k/uL Lymphocytes # (Manual) 0.44 L (1.0-4.8) k/uL Monocytes # (Manual) 1.18 H (0-1.0) k/uL PT (9.0-12.0) sec INR (<1.2) Chloride 111 H (98-107) mmol/L Carbon Dioxide 21 L (22-30) mmol/L BUN 24 H (9-20) mg/dL Creatinine 1.40 H (0.66-1.25) mg/dL Glucose 110 H (74-99) mg/dL Plasma Lactic Acid Alex 2.3 H* (0.7-2.0) mmol/L Total Bilirubin 4.3 H (0.2-1.3) mg/dL Total Protein 6.0 L (6.3-8.2) g/dL Urine Protein (Negative) Urine Blood (Negative) Urine Bilirubin (Negative) Ur Leukocyte Esterase (Negative) Urine WBC (0-5) /hpf Hyaline Casts (0-2) /lpf Urine Mucus (None) /hpf 10/05/17 10/05/17 10/05/17 Range/Units 20:07 20:45 23:55 Hgb (13.0-17.5) gm/dL MCHC (31.0-37.0) g/dL RDW (11.5-15.5) % Plt Count (150-450) k/uL Lymphocytes # (Manual) (1.0-4.8) k/uL Monocytes # (Manual) (0-1.0) k/uL PT 13.5 H (9.0-12.0) sec INR 1.5 H (<1.2) Chloride (98-107) mmol/L Carbon Dioxide (22-30) mmol/L BUN (9-20) mg/dL Creatinine (0.66-1.25) mg/dL Glucose (74-99) mg/dL Plasma Lactic Acid Alex 2.1 H* (0.7-2.0) mmol/L Total Bilirubin (0.2-1.3) mg/dL Total Protein (6.3-8.2) g/dL Urine Protein 2+ H (Negative) Urine Blood Trace H (Negative) Urine Bilirubin 1+ H (Negative) Ur Leukocyte Esterase Small H (Negative) Urine WBC 7 H (0-5) /hpf Hyaline Casts 3 H (0-2) /lpf Urine Mucus Few H (None) /hpf Thrombosis Risk Factor Assmnt - Choose All That Apply Each Risk Factor Represents 2 Points: Age 61-74 years Thrombosis Risk Factor Assessment Total Risk Factor Score: 2 Thrombosis Risk Factor Assessment Level: Low Risk Assessment and Plan Assessment: 1. Generalized weakness possibly related to normal pressure hydrocephalus. Brain CT completed showing no acute process. The ventricles are diffusely more prominent than the sulcal pattern and basal cisterns, this finding can correlate with clinical diagnosticof normal pressure hydrocephalus. Neurology has been consulted 2. Elevated lactic acid. Lactic acid 2.3. Urinary analysis, urine culture, sputum culture and blood cultures have been ordered. Chest x-ray completed showing no definitive acute process. Minimal bilateral pleural effusions noted , of doubtful clinical significance. 3. History of heart failure 4. History of CVA/TIA 5. History of hyperlipidemia 6. History of renal disease. Creatinine 1.40. Repeat labs have been ordered 7. History of coronary artery bypass 2-3 years ago GI prophylaxis Pepcid, DVT prophylaxis heparin Time with Patient: Greater than 30 (Greater than 60% of the total time spent in counseling and coordination of care. I performed an examination of the patient and discussed their management with the Nurse Practitioner. I have reviewed the Nurse Practitioner's notes and agree with the documented findings and plan of care)
[2017-10-06 12:00] LABS: Anisocytosis Slight; Basophils % (A) 0 %; Eosinophils % (A) 1 %; HCT 42.9 % (39.0-53.0); HGB 12.8 gm/dL (13.0-17.5); Hypochromasia Marked; Lymphocytes # (A) 0.6 k/uL (1.0-4.8); Lymphocytes % (A) 7 %; MCH 25.1 pg (25.0-35.0); MCV 83.7 fL (80.0-100.0); Mean Platelet Volume 8.9; Monocytes % (A) 13 %; Neutrophils # (A) 6.1 k/uL (1.3-7.7); Neutrophils % (A) 76 %; Platelet Count 122 k/uL (150-450); Poikilocytosis Slight; RBC 5.12 m/uL (4.30-5.90); RDW 17.8 % (11.5-15.5); WBC 8.1 k/uL (3.8-10.6)
[2017-10-06 12:23] LABS: Albumin 3.5 g/dL (3.5-5.0); Calcium 9.4 mg/dL (8.4-10.2); Potassium 4.3 mmol/L (3.5-5.1); Total Bilirubin 4.1 mg/dL (0.2-1.3)
[2017-10-06] MEDS: IPRATROPIUM-ALBUTEROL 3 ML NEB INHALATION SCH ×3 (15:45→19:48)
--- NOTE | 2017-10-06 17:19 | P.CNNES ---
History of Present Illness Consult date: 10/06/17 Reason for Consult: Patient with generalized weakness and possible hydrocephalus. History of Present Illness: This patient is a 72-year-old right-handed white male who was in his usual state of health until yesterday. Patient states that he was at home and was preparing to get up to fix a meal when he felt very weak in his legs. Apparently he stood up from his chair and slid off to the side and was on the ground and noted that he was quite weak in the legs. He had difficulty getting himself up due to the weakness. 2 hours later [employer] had arrived to deliver his medial and had asked if he needed help. Apparently he told the local combination truck driver that he was able to get himself up on his own. Apparently he did get himself up and was sitting in the chair but once again felt very weak to stand and was having difficulty ambulating due to weakness. The patient decided to call EMS. EMS arrived and had decided to take him to the emergency room for further evaluation. He normally follows with Dr. Emilee Wright and apparently was seen in their clinic about a month ago. Patient was brought into the emergency room at [facility] yesterday for evaluation. He was seen in the ER by Dr. Panda. He was sent for a computed tomography scan of the brain for further evaluation of his weakness. CAT scan of the brain revealed no acute process. The ventricles were diffusely prominent and the sulcal pattern and basal cisterns were prominent as well. This finding suggested possibility of normal pressure hydrocephalus. When questioned about his most recent past history patient denies any history of urinary incontinence, gait ataxia, or memory loss in the last 6 months. We mentioned to the patient that the CAT scan was suggesting mild ventricular enlargement and possibility of NPH. His clinical history however is not consistent with the diagnosis of NPH at this time. On further questioning the patient also denies any of the classical findings for gait apraxia and unsteadiness in his gait. He states he was walking and ambulating quite well even up to 2 days prior to his admission. He does not use a cane or walker at home. He is living independently in his own home and is been functioning at a very high level. Patient denies any significant memory loss early dementia. He also has not had any significant findings for urinary incontinence. Overall he seems to be doing quite well for his age and more than likely has mild urinary tract infection on his urine analysis as well as a known history of cardiomyopathy. This is more likely the cause of his generalized weakness. He denies any significant back pain history. His computed tomography scan of the brain did reveal evidence of an old right hemispheric stroke which she states he did suffer a few years ago. The patient is being followed closely in the cardiology clinic. We will await further recommendations from cardiology in regards to his known history of cardiomyopathy. We will continue close neurological follow-up for the patient during this admission. His overall prognosis at this time remains guarded. Review of Systems Constitutional: Denies chills, Denies fever Eyes: denies blurred vision, denies pain Ears, nose, mouth and throat: Denies headache, Denies sore throat Cardiovascular: Reports dyspnea on exertion, Reports leg edema, Denies chest pain, Denies shortness of breath Respiratory: Denies cough Gastrointestinal: Denies abdominal pain, Denies diarrhea, Denies nausea, Denies vomiting Musculoskeletal: Denies myalgias Integumentary: Denies pruritus, Denies rash Neurological: Reports gait dysfunction, Reports motor disturbance, Reports paresthesias, Denies numbness, Denies weakness Psychiatric: Denies anxiety, Denies depression Endocrine: Denies fatigue, Denies weight change Past Medical History Past Medical History: Heart Failure, CVA/TIA, Hyperlipidemia, Prostate Disorder , Renal Disease, Sleep Apnea/CPAP/BIPAP Additional Past Medical History / Comment(s): TIA's before CABG, see Dr Castillo H&P, no cpap used, hx kidney stones, enlarged prostate, cardiomyopathy History of Any Multi-Drug Resistant Organisms: None Reported Past Surgical History: Coronary Bypass/CABG, Heart Catheterization, Hernia Repair, Tonsillectomy Additional Past Surgical History / Comment(s): quad. bypass 2-3 yrs ago, stents keisha legs, growth removed from jaw Past Anesthesia/Blood Transfusion Reactions: Motion Sickness Past Psychological History: No Psychological Hx Reported Smoking Status: Former smoker Past Alcohol Use History: None Reported Additional Past Alcohol Use History / Comment(s): quit smoking age 53, started smoking age 16, 1PPD Past Drug Use History: None Reported - Past Family History Mother Family Medical History: No Reported History Medications and Allergies Home Medications Medication Instructions Recorded Confirmed Type Aspirin [Adult Low Dose Aspirin EC] 81 mg PO DAILY 07/06/17 10/05/17 History Atorvastatin [Lipitor] 40 mg PO HS 07/06/17 10/05/17 History Carvedilol [Coreg*] 25 mg PO BID 07/06/17 10/05/17 History Famotidine 20 mg PO HS 07/06/17 10/05/17 History Finasteride [Proscar] 5 mg PO HS 07/06/17 10/05/17 History Losartan [Cozaar] 25 mg PO HS 07/06/17 10/05/17 History Tamsulosin [Flomax] 0.4 mg PO DAILY 07/06/17 10/05/17 History Allergies Allergy/AdvReac Type Severity Reaction Status Date / Time Sulfa (Sulfonamide Allergy Itching Verified 10/05/17 20:36 Antibiotics) Physical Examination - Vital Signs Vital Signs: Vital Signs Temp Pulse Pulse Resp BP BP Pulse Ox 10/06/17 09:30 168/91 10/06/17 07:00 97.8 F 72 14 175/104 94 L 10/06/17 06:21 184/111 10/06/17 06:18 174/108 10/06/17 00:39 97.5 F L 78 18 167/99 98 10/05/17 23:35 74 16 187/104 96 10/05/17 21:42 77 18 151/94 95 10/05/17 21:17 71 17 137/92 95 10/05/17 19:58 97.8 F 74 18 139/87 95 Intake and Output 10/05/17 10/06/17 10/06/17 22:59 06:59 14:59 Intake Total 375 300 Output Total 100 Balance 375 200 Intake: Intake, IV Titration 375 Amount Sodium Chloride 0.9% 1, 375 000 ml @ 75 mls/hr IV . [id number] [facility] Rx#:[id number] Oral 300 Output: Urine 100 Other: Voiding Method Toilet Urinal Weight 108.862 kg 108.862 kg - Constitutional General appearance: average body habitus, cooperative - EENT EENT: PERRL, mucous membranes moist - Respiratory Respiratory: lungs clear, normal breath sounds - Cardiovascular Cardiovascular: regular rate, normal S1, normal S2 Extremities: no peripheral edema bilaterally - Gastrointestinal Gastrointestinal: normoactive bowel sounds - Integumentary Integumentary: normal - Neurologic Cranial nerve examination: PERRL, EOMI, VFF, face symmetric, tongue midline, intact gag reflex, intact corneal reflex, normal palatal elevation Speech examination: intact Sensorimotor examination: intact Motor examination - right side: 4/5: biceps, triceps, wrist flexion, wrist extension, quality rn, hip flexors, knee extensors, dorsiflexion, toe extension (EHL) , plantarflexion Motor examination - left side: 4/5: biceps, triceps, wrist flexion, wrist extension, quality rn, hip flexors, knee extensors, dorsiflexion, toe extension (EHL) , plantarflexion Detailed sensory examination: intact Reflex and gait examination: intact Reflexes: 1+: ankle, bicep, knee, tricep - Musculoskeletal Musculoskeletal: no pain - Psychiatric Psychiatric: mood/affect appropriate, cooperative Results - Laboratory Findings CBC and BMP: 10/06/17 11:43 10/06/17 11:43 Abnormal Lab Findings: Abnormal Labs 10/05/17 10/05/17 10/05/17 20:07 20:07 20:07 Hgb 12.6 L MCHC 30.4 L RDW 17.8 H Plt Count 136 L Lymphocytes # Lymphocytes # (Manual) 0.44 L Monocytes # (Manual) 1.18 H PT INR Chloride 111 H Carbon Dioxide 21 L BUN 24 H Creatinine 1.40 H Glucose 110 H Plasma Lactic Acid Alex 2.3 H* Total Bilirubin 4.3 H AST Total Protein 6.0 L Urine Protein Urine Blood Urine Bilirubin Ur Leukocyte Esterase Urine WBC Hyaline Casts Urine Mucus 10/05/17 10/05/17 10/05/17 20:07 20:45 23:55 Hgb MCHC RDW Plt Count Lymphocytes # Lymphocytes # (Manual) Monocytes # (Manual) PT 13.5 H INR 1.5 H Chloride Carbon Dioxide BUN Creatinine Glucose Plasma Lactic Acid Alex 2.1 H* Total Bilirubin AST Total Protein Urine Protein 2+ H Urine Blood Trace H Urine Bilirubin 1+ H Ur Leukocyte Esterase Small H Urine WBC 7 H Hyaline Casts 3 H Urine Mucus Few H 10/06/17 10/06/17 11:43 11:43 Hgb 12.8 L MCHC 30.0 L RDW 17.8 H Plt Count 122 L Lymphocytes # 0.6 L Lymphocytes # (Manual) Monocytes # (Manual) PT INR Chloride 113 H Carbon Dioxide 19 L BUN 24 H Creatinine 1.40 H Glucose 111 H Plasma Lactic Acid Alex Total Bilirubin 4.1 H AST 106 H Total Protein 6.0 L Urine Protein Urine Blood Urine Bilirubin Ur Leukocyte Esterase Urine WBC Hyaline Casts Urine Mucus Assessment and Plan (1) History of stroke Current Visit: Yes Status: Acute Code(s): Z86.73 - PRSNL HX OF TIA (TIA), AND CEREB INFRC W/O RESID DEFICITS SNOMED Code(s): 326583157 (2) Cardiomyopathy Current Visit: Yes Status: Acute Code(s): I42.9 - CARDIOMYOPATHY, UNSPECIFIED SNOMED Code(s): 36682902 (3) Heart failure Current Visit: Yes Status: Acute Code(s): I50.9 - HEART FAILURE, UNSPECIFIED SNOMED Code(s): 70661705 (4) Sleep apnea Current Visit: Yes Status: Acute Code(s): G47.30 - SLEEP APNEA, UNSPECIFIED SNOMED Code(s): 63067842 Plan: This patient is a 72-year-old gentleman who was admitted to Hospital for symptoms of weakness in his lower extremities and inability to ambulate. Patient was at home and apparently developed sudden weakness and inability to stand without support at home. He was offered some help at home by the [employer] attendant but apparently said he was fine. A few hours later he ended up calling EMS and was brought into the emergency room at the [facility] for further evaluation. He was seen in the ER by Dr. Panda. He underwent a computed tomography scan of the brain which revealed mild degree of ventriculomegaly with no acute stroke findings. There was evidence of an old right hemispheric stroke which according to the patient is old. His computed tomography scan of the brain was interpreted by the radiologist as suggesting possibility of NPH. His neurological exam and clinical history is not consistent with NPH at this time. We are recommending the patient to be evaluated by physical therapy to increase his strength in his lower extremities. He has more findings suggesting cardiomyopathy and generalized weakness as a cause of his current symptoms. Computed tomography scan of the brain films were reviewed and only revealed mild degree of ventriculomegaly. We have reviewed these results today with the patient detail. We will await further recommendations from physical therapy. His overall prognosis at this time remains guarded. We will continue close neurological follow-up for the patient during this admission. Time with Patient: Greater than 30
[2017-10-06] MEDS ORDERED: ATORVASTATIN 40 MG TAB PO SCH (21:00)
[2017-10-06] MEDS: HEPARIN SODIUM,PORCINE 5,000 UNIT/ML 1 ML VIAL SQ SCH (21:34)
[2017-10-06] MEDS: LOSARTAN 25 MG TAB PO SCH (21:35)
[2017-10-06] MEDS: FINASTERIDE 5 MG TAB PO SCH (21:35)
[2017-10-06] MEDS: FAMOTIDINE 20 MG TAB PO SCH (21:35)
[2017-10-07] MEDS: SODIUM CHLORIDE 0.9% 1,000 ML IV SCH ×3 (04:08→23:28)
[2017-10-07] MEDS: CARVEDILOL 12.5 MG TAB PO SCH ×2 (07:24→17:57)
[2017-10-07] MEDS: TAMSULOSIN 0.4 MG CAP.ER.24H PO SCH (07:24)
[2017-10-07] MEDS: ASPIRIN 81 MG PO SCH (07:24)
[2017-10-07] MEDS: HEPARIN SODIUM,PORCINE 5,000 UNIT/ML 1 ML VIAL SQ SCH ×2 (07:24→21:06)
[2017-10-07 07:27] LABS: Albumin 3.4 g/dL (3.5-5.0); Calcium 8.7 mg/dL (8.4-10.2); Total Bilirubin 3.7 mg/dL (0.2-1.3); Total Protein 5.8 g/dL (6.3-8.2)
[2017-10-07 07:32] LABS: Potassium 4.2 mmol/L (3.5-5.1)
[2017-10-07 07:35] LABS: Anisocytosis Slight; Basophils % (A) 0 %; Eosinophils % (A) 1 %; HCT 43.2 % (39.0-53.0); HGB 12.7 gm/dL (13.0-17.5); Hypochromasia Marked; Lymphocytes # (A) 0.8 k/uL (1.0-4.8); Lymphocytes % (A) 9 %; MCH 24.9 pg (25.0-35.0); MCHC 29.3 g/dL (31.0-37.0); MCV 84.7 fL (80.0-100.0); Mean Platelet Volume 9.3; Monocytes % (A) 12 %; Neutrophils # (A) 5.9 k/uL (1.3-7.7); Neutrophils % (A) 73 %; Platelet Count 118 k/uL (150-450); Poikilocytosis Slight; RDW 17.8 % (11.5-15.5); WBC 8.1 k/uL (3.8-10.6)
[2017-10-07] MEDS: IPRATROPIUM-ALBUTEROL 3 ML NEB INHALATION SCH ×4 (08:40→20:25)
--- NOTE | 2017-10-07 09:04 | P.PN ---
Subjective Progress Note Date: 10/07/17 This patient is a 72-year-old right-handed white male who was seen in neurology consultation yesterday for evaluation of normal pressure hydrocephalus. His neurological examination yesterday revealed no significant findings or classical triad for a suspicion for NPH. He underwent a computed tomography scan of the brain on admission which did reveal mild degree of ventriculomegaly. On neurological examination yesterday he did not experience or demonstrate evidence of gait ataxia, urinary incontinence, or early dementia. These of the typical triad findings to suggest possibility of NPH. He has been treated for severe cardiomyopathy and this may be more of his cause for generalized weakness. We have discussed the case today with Dr. Wakefield and his nurse practitioner. We would encourage him to work with physical therapy to increase his activity. If he has further deterioration we would consider outpatient follow-up for him for more further assessment for NPH. At this time we will continue to closely monitor his condition during this admission. His overall prognosis remains guarded. Objective - Vital Signs Vital signs: Vital Signs Temp 98.8 F 10/07/17 07:00 Pulse 82 10/07/17 08:51 Resp 14 10/07/17 07:10 BP 151/87 10/07/17 07:00 Pulse Ox 97 10/07/17 07:00 Intake & Output 10/06/17 10/07/17 10/07/17 18:59 06:59 18:59 Intake Total 750 970 Output Total 100 300 Balance 650 670 Intake: Intake, IV Titration 450 850 Amount Sodium Chloride 0.9% 1, 450 850 000 ml @ 75 mls/hr IV . [id number] [facility] Rx#:[id number] Oral 300 120 Output: Urine 100 300 Other: Voiding Method Toilet Urinal # Voids 2 - Exam Physical examination: PHYSICAL EXAMINATION: Patient is resting comfortably in bed. VITAL SIGNS: Blood pressure is [151/87]. Heart rate is [84]. Respiration is [14] . Temperature is [98.8]. HEENT: Head is atraumatic, neck is supple, there were no carotid bruits. CHEST: Lungs are clear to auscultation and percussion. CARDIAC: S1, S2 normal rate and rhythm. There is no murmur. ABDOMEN: Soft and nontender. Bowel sounds are present. EXTREMITIES: There is no pedal edema. Peripheral pulses are present. Neurological examination: Patient has a nonfocal neurological examination today. - Labs CBC & Chem 7: 10/07/17 06:40 10/07/17 06:40 Labs: Abnormal Lab Results - Last 24 Hours (Table) 10/06/17 10/06/17 10/07/17 Range/Units 11:43 11:43 06:40 Hgb 12.8 L 12.7 L (13.0-17.5) gm/dL MCH 24.9 L (25.0-35.0) pg MCHC 30.0 L 29.3 L (31.0-37.0) g/dL RDW 17.8 H 17.8 H (11.5-15.5) % Plt Count 122 L 118 L (150-450) k/uL Lymphocytes # 0.6 L 0.8 L (1.0-4.8) k/uL Chloride 113 H (98-107) mmol/L Carbon Dioxide 19 L (22-30) mmol/L BUN 24 H (9-20) mg/dL Creatinine 1.40 H (0.66-1.25) mg/dL Glucose 111 H (74-99) mg/dL Total Bilirubin 4.1 H (0.2-1.3) mg/dL AST 106 H (17-59) U/L ALT (21-72) U/L Total Protein 6.0 L (6.3-8.2) g/dL Albumin (3.5-5.0) g/dL 10/07/17 Range/Units 06:40 Hgb (13.0-17.5) gm/dL MCH (25.0-35.0) pg MCHC (31.0-37.0) g/dL RDW (11.5-15.5) % Plt Count (150-450) k/uL Lymphocytes # (1.0-4.8) k/uL Chloride 112 H (98-107) mmol/L Carbon Dioxide 21 L (22-30) mmol/L BUN 26 H (9-20) mg/dL Creatinine 1.27 H (0.66-1.25) mg/dL Glucose (74-99) mg/dL Total Bilirubin 3.7 H (0.2-1.3) mg/dL AST 83 H (17-59) U/L ALT 93 H (21-72) U/L Total Protein 5.8 L (6.3-8.2) g/dL Albumin 3.4 L (3.5-5.0) g/dL Assessment and Plan (1) History of stroke Current Visit: Yes Status: Acute Code(s): Z86.73 - PRSNL HX OF TIA (TIA), AND CEREB INFRC W/O RESID DEFICITS SNOMED Code(s): 369121120 (2) Cardiomyopathy Current Visit: Yes Status: Acute Code(s): I42.9 - CARDIOMYOPATHY, UNSPECIFIED SNOMED Code(s): 64596567 (3) Heart failure Current Visit: Yes Status: Acute Code(s): I50.9 - HEART FAILURE, UNSPECIFIED SNOMED Code(s): 23867731 (4) Sleep apnea Current Visit: Yes Status: Acute Code(s): G47.30 - SLEEP APNEA, UNSPECIFIED SNOMED Code(s): 15615975 Plan: This patient is a 72-year-old male who was being evaluated for possibility of normal pressure hydrocephalus. He underwent a computed tomography scan of the brain on admission which revealed some degree of ventriculomegaly. His neurological examination at this time is not consistent with NPH. He does not have the classical triad of clinical findings raise suspicion for NPH. We are recommending he be evaluated by physical therapy for possible rehabilitation if necessary as outpatient. If the patient's symptoms should worsen we be happy to reevaluate him in the outpatient neurology clinic for further assessment. At this time he seems to be doing quite well. Would recommend further follow- up with his veterinary bacteriologist given his history of cardiomyopathy and generalized weakness. We will continue close neurological follow-up for the patient during this admission.
--- NOTE | 2017-10-07 13:41 | P.CRDCN ---
History of Present Illness History of present illness: Mr. Fernandes is a pleasant 72-year-old male past medical history significant for coronary artery disease s/p bypass grafting 2012, chronic ischemic cardiomyopathy, chronic systolic heart failure, dyslipidemia, hypertension, chronic kidney disease, sleep apnea and BPH. He follows with Dr. Castillo in the office. We have been asked to see him in consultation for generalized weakness. He states on Thursday he was sitting in his recliner chair and he slipped out and fell to the floor. He denies chest pain, shortness of breath, palpitations or dizziness prior to falling. He states he just slipped out of the chair. He states once he was on the floor he felt extremely weak and was unable to stand up. He said he felt as thought he didn't have enough strength in his arms or legs. He sat on the floor for 2 hours before finally calling EMS for assistance. Brain CT obtained on admission negative for any acute process, the ventricles are diffusely more prominent than the sulcal pattern and basal Stevie this can be concerning for normal pressure hydrocephalus.neurology has seen the patient in consultation and agreed with the diagnosis of normal pressure hydrocephalus and have recommended physical therapy. EKG reveals sinus mechanism flattened T waves inferiorly laterally with left anterior fascicular block. No acute changes from previous EKG. Chest x-ray negative for an acute coronary process. Lab data reviewed, hemoglobin 12.8, platelets 122,INR 1.5, sodium 143, potassium 4.3, magnesium 1.9, creatinine 1.4, GFR 49, cardiac enzymes negative 1, TSH 2.51, free T3 2 .9. current cardiac medications include losartan 25 mg daily, carvedilol 25 mg twice a day, atorvastatin 40 mg daily and aspirin 81 mg daily. most recent echocardiogram performed in the office reveals severely reduced left ventricular systolic function with ejection fraction 35%. Large apical akinesia with no thrombus noted. Review of Systems At the time of my exam: CONSTITUTIONAL: Denies fever. Denies chills. EYES: Denies blurred vision. Denies vision changes. Denies eye pain. EARS, NOSE, MOUTH & THROAT: Denies headache. Denies sore throat. Denies ear pain. CARDIOVASCULAR: Denies chest pain. Denies shortness of breath. Denies orthopnea. Denies PND. Denies palpitations. RESPIRATORY: Denies cough. GASTROINTESTINAL: Denies abdominal pain. Denies diarrhea. Denies constipation. Denies nausea. Denies vomiting. MUSCULOSKELETAL: Denies myalgias. INTEGUMENTARY: Denies pruitis. Denies rash. NEUROLOGIC: Denies numbness. Denies tingling. Complains of generalized weakness and fatigue. PSYCHIATRIC: Denies anxiety. Denies depression. ENDOCRINE: Denies fatigue. Denies weight change. Denies polydipsia. Denies polyurina. GENITOURINARY: Denies burning, hematuria or urgency with micturation. HEMATOLOGIC: Denies history of anemia. Denies bleeding. Past Medical History Past Medical History: Heart Failure, CVA/TIA, Hyperlipidemia, Prostate Disorder , Renal Disease, Sleep Apnea/CPAP/BIPAP Additional Past Medical History / Comment(s): TIA's before CABG, see Dr Csatillo H&P, no cpap used, hx kidney stones, enlarged prostate, cardiomyopathy History of Any Multi-Drug Resistant Organisms: None Reported Past Surgical History: Coronary Bypass/CABG, Heart Catheterization, Hernia Repair, Tonsillectomy Additional Past Surgical History / Comment(s): quad. bypass 2-3 yrs ago, stents keisha legs, growth removed from jaw Past Anesthesia/Blood Transfusion Reactions: Motion Sickness Past Psychological History: No Psychological Hx Reported Smoking Status: Former smoker Past Alcohol Use History: None Reported Additional Past Alcohol Use History / Comment(s): quit smoking age 53, started smoking age 16, 1PPD Past Drug Use History: None Reported - Past Family History Mother Family Medical History: No Reported History Medications and Allergies Home Medications Medication Instructions Recorded Confirmed Type Aspirin [Adult Low Dose Aspirin EC] 81 mg PO DAILY 07/06/17 10/05/17 History Atorvastatin [Lipitor] 40 mg PO HS 07/06/17 10/05/17 History Carvedilol [Coreg*] 25 mg PO BID 07/06/17 10/05/17 History Famotidine 20 mg PO HS 07/06/17 10/05/17 History Finasteride [Proscar] 5 mg PO HS 07/06/17 10/05/17 History Losartan [Cozaar] 25 mg PO HS 07/06/17 10/05/17 History Tamsulosin [Flomax] 0.4 mg PO DAILY 07/06/17 10/05/17 History Allergies Allergy/AdvReac Type Severity Reaction Status Date / Time Sulfa (Sulfonamide Allergy Itching Verified 10/05/17 20:36 Antibiotics) Physical Exam Vitals: Vital Signs Temp Pulse Pulse Pulse Resp BP Pulse Ox 10/07/17 12:20 80 10/07/17 12:07 78 10/07/17 08:51 82 10/07/17 08:40 80 10/07/17 07:10 14 10/07/17 07:00 98.8 F 84 14 151/87 97 10/07/17 02:05 97.7 F 68 16 166/101 95 10/06/17 23:40 97.9 F 97 66 18 167/100 10/06/17 19:59 71 10/06/17 19:49 68 10/06/17 16:01 75 10/06/17 15:48 74 94 L 10/06/17 15:29 98 F 58 L 16 159/84 94 L Intake and Output 10/06/17 10/07/17 10/07/17 22:59 06:59 14:59 Intake Total 120 850 Output Total 300 Balance 120 550 Intake: Intake, IV Titration 850 Amount Sodium Chloride 0.9% 1, 850 000 ml @ 75 mls/hr IV . [id number] [facility] Rx#:[id number] Oral 120 Output: Urine 300 Blood pressure 151/87 heart rate 80 afebrile and maintaining oxygen saturation on room air. GENERAL: This is a 72-year-old male in no apparent distress at the time of my examination. HEENT: Head is atraumatic, normocephalic. Pupils are equal, round. Sclerae anicteric. Conjunctivae are clear. Mucous membranes of the mouth are moist. Neck is supple. There is no jugular venous distention. No carotid bruit is heard. LUNGS: Clear to auscultation no wheezes, rales or rhonchi. No chest wall tenderness is noted on palpation or with deep breathing. Diminished bilaterally. HEART: Regular rate and rhythm without murmurs, rubs or gallops. S1 and S2 heard. ABDOMEN: Soft, nontender. Bowel sounds are heard. No organomegaly noted. EXTREMITIES: 2+ bilateral lower extremity pitting edema, chronic discoloration. No calf tenderness noted. VASCULAR: Radial and dorsalis pedis pulses palpated, no evidence of clubbing. NEUROLOGIC: Patient is awake, alert and oriented x3. Results 10/07/17 06:40 10/07/17 06:40 Cardiac Enzymes 10/07/17 Range/Units 06:40 AST 83 H (17-59) U/L CBC 10/07/17 Range/Units 06:40 WBC 8.1 (3.8-10.6) k/uL RBC 5.10 (4.30-5.90) m/uL Hgb 12.7 L (13.0-17.5) gm/dL Hct 43.2 (39.0-53.0) % Plt Count 118 L (150-450) k/uL Comprehensive Metabolic Panel 10/07/17 Range/Units 06:40 Sodium 141 (137-145) mmol/L Potassium 4.2 (3.5-5.1) mmol/L Chloride 112 H (98-107) mmol/L Carbon Dioxide 21 L (22-30) mmol/L BUN 26 H (9-20) mg/dL Creatinine 1.27 H (0.66-1.25) mg/dL Glucose 98 (74-99) mg/dL Calcium 8.7 (8.4-10.2) mg/dL AST 83 H (17-59) U/L ALT 93 H (21-72) U/L Alkaline Phosphatase 79 (38-126) U/L Total Protein 5.8 L (6.3-8.2) g/dL Albumin 3.4 L (3.5-5.0) g/dL Current Medications Generic Name Dose Route Start Last Admin Trade Name Freq PRN Reason Stop Dose Admin Albuterol/Ipratropium 3 ml 10/06/17 12:00 10/07/17 12:07 Duoneb 0.5 Mg-3 Mg/3 Ml Soln INHALATION 3 ml RT-QID [facility] Administration Aspirin 81 mg 10/06/17 09:00 10/07/17 07:24 Aspirin PO 81 mg DAILY [facility] Administration Carvedilol 25 mg 10/06/17 07:30 10/07/17 07:24 Coreg PO 25 mg BID-W/MEALS [facility] Administration Famotidine 20 mg 10/06/17 21:00 10/06/17 21:35 Pepcid PO 20 mg HS [facility] Administration Finasteride 5 mg 10/06/17 21:00 10/06/17 21:35 Proscar PO 5 mg HS [facility] Administration Heparin Sodium (Porcine) 5,000 unit 10/06/17 21:00 10/07/17 07:24 Heparin SQ 5,000 unit Q12HR [facility] Administration Sodium Chloride 1,000 mls @ 75 mls/hr 10/06/17 00:15 10/07/17 04:08 Saline 0.9% IV Not Given .[id number] [facility] Losartan Potassium 25 mg 10/06/17 21:00 10/06/17 21:35 Cozaar PO 25 mg HS [facility] Administration Naloxone HCl 0.2 mg 10/06/17 00:05 Narcan IV Q2M PRN Opioid Reversal Tamsulosin HCl 0.4 mg 10/06/17 09:00 10/07/17 07:24 Flomax PO 0.4 mg DAILY [facility] Administration Intake and Output 10/06/17 10/07/17 10/07/17 22:59 06:59 14:59 Intake Total 120 850 Output Total 300 Balance 120 550 Intake: Intake, IV Titration 850 Amount Sodium Chloride 0.9% 1, 850 000 ml @ 75 mls/hr IV . [id number] [facility] Rx#:[id number] Oral 120 Output: Urine 300 10/07/17 06:40 10/07/17 06:40 Assessment and Plan Assessment: ASSESSMENT Generalized weakness and fatigue Ischemic cardiomyopathy status post AICD placement, June 2017 dual chamber Medtronic ICD History coronary artery disease status post bypass grafting 2012 Hypertension Peripheral vascular disease status post bilateral iliac stents Chronic kidney disease History of ventricular tachycardia PLAN Obtain 2-D echocardiogram and Doppler study to assess cardiac structure and function. Interrogate Medtronic device. Check proBNP. further recommendations to follow based upon clinical course. Thank you kindly for this consultation. Nurse Practitioner note has been reviewed, I agree with a documented findings and plan of care. Patient was seen and examined.
--- NOTE | 2017-10-07 15:27 | P.PN ---
Subjective Progress Note Date: 10/07/17 Principal diagnosis: Normal pressure hydrocephalus, generalized weakness, elevated lactic acid, congestive heart failure, CVA by history, dyslipidemia, chronic renal failure stage III, coronary artery disease status post bypass 10/07/2017, patient seen eval examined during the rounds clinically patient is doing slightly better more awake and alert strength is coming back patient is undergoing physical therapy and rehab able to walk 8-10 steps significant edema in the lower extremities are noted patient is being placed on low-dose IV furosemide to be changed to oral daily medications reviewed him a care plan discussed with the family present at bedside blood culture no growth so far This is a 72-year-old male patient of Dr. Emilee Wright. Patient presents to the emergency room with complaints of generalized weakness patient states that he was sitting up in his chair and slid out of his chair and was then too weak to get back up. Patient has a known past medical history of heart failure, CVA , hyperlipidemia, prostate disorder, renal disorder, sleep apnea, TIAs and coronary artery bypass 3 years ago. Chest x-ray completed emergency room showing no definitive acute process. Minimal bilateral pleural effusions noted of doubtful clinical significance. CT of the brain completed showing no acute process, the ventricles are diffusely more prominent than the circular pattern and basals cisterns, this finding can correlate with clinical significance of normal pressure hydrocephalus. Neurology consult has been placed. EKG completed showing normal showing normal sinus rhythm, low-voltage QRS, low anterior fascicular block, inferior infarct age undetermined and possible anterior lateral infarct age at age undetermined. Patient denies chest pain or shortness of breath at this time. Denies nausea vomiting or diarrhea. Awaiting neurology consults Objective - Vital Signs Vital signs: Vital Signs Temp 98.0 F 10/07/17 15:00 Pulse 66 10/07/17 15:00 Resp 16 10/07/17 15:00 BP 150/82 10/07/17 15:00 Pulse Ox 94 L 10/07/17 15:00 Intake & Output 10/06/17 10/07/17 10/07/17 18:59 06:59 18:59 Intake Total 750 970 Output Total 100 300 Balance 650 670 Intake: Intake, IV Titration 450 850 Amount Sodium Chloride 0.9% 1, 450 850 000 ml @ 75 mls/hr IV . [id number] [facility] Rx#:[id number] Oral 300 120 Output: Urine 100 300 Other: Voiding Method Toilet Urinal # Voids 2 2 - Exam Head normocephalic Neck supple Lungs bilateral wheezing Heart regular rate and rhythm S1-S2, no rub or gallop Abdomen is soft nontender nondistended positive bowel sounds no hepatosplenomegaly Extremities bilateral +1-2 lower extremity pretibial edema Neuro alert and orientated to 3 - Labs CBC & Chem 7: 10/07/17 06:40 10/07/17 06:40 Labs: Abnormal Lab Results - Last 24 Hours (Table) 10/07/17 10/07/17 Range/Units 06:40 06:40 Hgb 12.7 L (13.0-17.5) gm/dL MCH 24.9 L (25.0-35.0) pg MCHC 29.3 L (31.0-37.0) g/dL RDW 17.8 H (11.5-15.5) % Plt Count 118 L (150-450) k/uL Lymphocytes # 0.8 L (1.0-4.8) k/uL Chloride 112 H (98-107) mmol/L Carbon Dioxide 21 L (22-30) mmol/L BUN 26 H (9-20) mg/dL Creatinine 1.27 H (0.66-1.25) mg/dL Total Bilirubin 3.7 H (0.2-1.3) mg/dL AST 83 H (17-59) U/L ALT 93 H (21-72) U/L Total Protein 5.8 L (6.3-8.2) g/dL Albumin 3.4 L (3.5-5.0) g/dL Microbiology - Last 24 Hours (Table) 10/06/17 11:43 Blood Culture - Preliminary Blood No Growth after 24 hours Assessment and Plan Assessment: Acute exacerbation of CHF likely acute on chronic systolic heart failure related to chronic ischemic cardiomyopathy Generalized weakness possibly related to normal pressure hydrocephalus. Brain CT completed showing no acute process. The ventricles are diffusely more prominent than the sulcal pattern and basal cisterns, this finding can correlate with clinical diagnostic of normal pressure hydrocephalus. Neurology following Elevated lactic acid. Lactic acid 2.3. Urinary analysis, urine culture, sputum culture and blood cultures have been ordered. Chest x-ray completed showing no definitive acute process. Minimal bilateral pleural effusions noted , of doubtful clinical significance. History of heart failure History of CVA/TIA History of hyperlipidemia History of renal disease. Creatinine 1.40. Repeat labs have been ordered History of coronary artery bypass 2-3 years ago GI prophylaxis Pepcid, DVT prophylaxis heparin Plan: Gentle diuresis Care plan discussed with the urine cardiovascular services Increase activity as tolerated Continue home medications PT OT evaluation Fall precaution Follow up on echocardiogram DVT and peptic ulcer disease prophylaxis Monitor renal functions closely repeat labs tomorrow Time with Patient: Greater than 30
[2017-10-07] MEDS: FUROSEMIDE 10 MG/ML 4 ML VIAL IV SCH (15:32)
[2017-10-07] MEDS: FINASTERIDE 5 MG TAB PO SCH (21:06)
[2017-10-07] MEDS: FAMOTIDINE 20 MG TAB PO SCH (21:06)
[2017-10-07] MEDS: LOSARTAN 25 MG TAB PO SCH (21:57)
[2017-10-08 06:42] LABS: Anisocytosis Slight; Basophils % (A) 0 %; Eosinophils # (A) 0.1 k/uL (0-0.7); Eosinophils % (A) 2 %; HCT 39.3 % (39.0-53.0); Hypochromasia Marked; Lymphocytes # (A) 0.5 k/uL (1.0-4.8); Lymphocytes % (A) 8 %; MCH 25.5 pg (25.0-35.0); MCHC 30.5 g/dL (31.0-37.0); MCV 83.8 fL (80.0-100.0); Mean Platelet Volume 10.4; Monocytes # (A) 0.8 k/uL (0-1.0); Monocytes % (A) 12 %; Neutrophils # (A) 4.8 k/uL (1.3-7.7); Neutrophils % (A) 75 %; Platelet Count 114 k/uL (150-450); Poikilocytosis Slight; RBC 4.68 m/uL (4.30-5.90); RDW 17.7 % (11.5-15.5); WBC 6.5 k/uL (3.8-10.6)
[2017-10-08 06:50] LABS: Albumin 3.1 g/dL (3.5-5.0); Calcium 8.5 mg/dL (8.4-10.2); Potassium 3.7 mmol/L (3.5-5.1); Total Protein 5.6 g/dL (6.3-8.2)
[2017-10-08] MEDS: HEPARIN SODIUM,PORCINE 5,000 UNIT/ML 1 ML VIAL SQ SCH ×2 (07:16→21:25)
[2017-10-08] MEDS: FUROSEMIDE 10 MG/ML 4 ML VIAL IV SCH (07:17)
[2017-10-08] MEDS: ASPIRIN 81 MG PO SCH (07:17)
[2017-10-08] MEDS: TAMSULOSIN 0.4 MG CAP.ER.24H PO SCH (07:17)
[2017-10-08] MEDS: IPRATROPIUM-ALBUTEROL 3 ML NEB INHALATION SCH ×4 (07:29→19:36)
[2017-10-08] MEDS: CARVEDILOL 12.5 MG TAB PO SCH ×2 (08:36→17:35)
[2017-10-08] MEDS ORDERED: Potassium Replacement Protocol 1 EACH MISC MISCELLANE PRN (09:17)
[2017-10-08] MEDS ORDERED: POTASSIUM CHLORIDE ER 20 MEQ TAB.ER PO SCH (10:00)
--- NOTE | 2017-10-08 11:15 | P.PN ---
Subjective Progress Note Date: 10/08/17 This is a 72-year-old male patient of Dr. Emilee Wright. Patient presents to the emergency room with complaints of generalized weakness patient states that he was sitting up in his chair and slid out of his chair and was then too weak to get back up. Patient has a known past medical history of heart failure, CVA , hyperlipidemia, prostate disorder, renal disorder, sleep apnea, TIAs and coronary artery bypass 3 years ago. Chest x-ray completed emergency room showing no definitive acute process. Minimal bilateral pleural effusions noted of doubtful clinical significance. CT of the brain completed showing no acute process, the ventricles are diffusely more prominent than the circular pattern and basals cisterns, this finding can correlate with clinical significance of normal pressure hydrocephalus. Neurology consult has been placed. EKG completed showing normal showing normal sinus rhythm, low-voltage QRS, low anterior fascicular block, inferior infarct age undetermined and possible anterior lateral infarct age at age undetermined. Patient denies chest pain or shortness of breath at this time. Denies nausea vomiting or diarrhea. Awaiting neurology consults 10/07/2017, patient seen eval examined during the rounds clinically patient is doing slightly better more awake and alert strength is coming back patient is undergoing physical therapy and rehab able to walk 8-10 steps significant edema in the lower extremities are noted patient is being placed on low-dose IV furosemide to be changed to oral daily medications reviewed him a care plan discussed with the family present at bedside blood culture no growth so far On 10/08/2017 patient is currently sitting up in bed stating he is feeling improved and has not had episodes of weakness. Patient was started on IV Lasix yesterday due to increased swelling in lower extremity. Swelling has improved. Neurology services are consulted. The incomplete BNP completed [id number]. 2-D echo has been ordered. Plan for defibrillator to be interrogated today. Cultures currently negative. Denies chest pain or shortness breath. Denies nausea vomiting or diarrhea. Denies any urinary symptoms at this time. Objective - Vital Signs Vital signs: Vital Signs Temp 98 F 10/08/17 06:52 Pulse 88 10/08/17 07:39 Resp 14 10/08/17 06:52 BP 132/79 10/08/17 06:52 Pulse Ox 93 L 10/08/17 08:53 Intake & Output 10/07/17 10/08/1718 18:59 06:59 18:59 Intake Total 1040 350 Output Total 200 650 Balance 840 -300 Intake: Intake, IV Titration 600 Amount Sodium Chloride 0.9% 1, 600 000 ml @ 75 mls/hr IV . [id number] [facility] Rx#:[id number] Oral 240 350 Other 200 Output: Urine 200 650 Other: # Voids 2 3 - Exam Head normocephalic Neck supple Lungs clear to auscultation bilaterally no wheezing or crackles Heart regular rate and rhythm S1-S2, no rub or gallop Abdomen is soft nontender nondistended positive bowel sounds no hepatosplenomegaly Extremities +1 lower extremity edema Neuro alert and orientated to 3 - Labs CBC & Chem 7: 10/08/17 06:27 10/08/17 06:27 Labs: Abnormal Lab Results - Last 24 Hours (Table) 10/08/17 10/08/17 Range/Units 06:27 06:27 Hgb 12.0 L (13.0-17.5) gm/dL MCHC 30.5 L (31.0-37.0) g/dL RDW 17.7 H (11.5-15.5) % Plt Count 114 L (150-450) k/uL Lymphocytes # 0.5 L (1.0-4.8) k/uL Chloride 110 H (98-107) mmol/L BUN 28 H (9-20) mg/dL Creatinine 1.40 H (0.66-1.25) mg/dL Total Bilirubin 3.0 H (0.2-1.3) mg/dL Total Protein 5.6 L (6.3-8.2) g/dL Albumin 3.1 L (3.5-5.0) g/dL Microbiology - Last 24 Hours (Table) 10/07/17 14:00 Gram Stain - Preliminary Sputum 10/07/17 16:00 Urine Culture - Preliminary Urine,Clean Catch 10/06/17 11:43 Blood Culture - Preliminary Blood No Growth after 24 hours Assessment and Plan Assessment: 1.Acute exacerbation of CHF likely acute on chronic systolic heart failure related to chronic ischemic cardiomyopathy. Lasix 40 mg IV has been ordered. 2 -D echo has been ordered per cardiology services. BNP 43,400. 2. Generalized weakness possibly related to normal pressure hydrocephalus. Brain CT completed showing no acute process. The ventricles are diffusely more prominent than the sulcal pattern and basal cisterns, this finding can correlate with clinical diagnostic of normal pressure hydrocephalus. Neurology following. EEG has been ordered 3. Elevated lactic acid. Lactic acid 2.3. Urinary analysis, urine culture, sputum culture and blood cultures have been ordered. Chest x-ray completed showing no definitive acute process. Minimal bilateral pleural effusions noted , of doubtful clinical significance. Blood, urine and sputum cultures currently negative. Patient remains afebrile. White blood cell 6.5. 4. History of heart failure 5. History of CVA/TIA 6. History of hyperlipidemia 7. History of renal disease. Creatinine 1.40. Repeat labs have been ordered 8. History of coronary artery bypass 2-3 years ago 9. History of defibrillator. Cardiology services are following plan for interrogation defibrillator today 10. Possible iron deficiency anemia. Hemoglobin 12.0. Iron studies have been ordered and occult stool blood. No signs of active bleeding at this time GI prophylaxis Pepcid, DVT prophylaxis heparin I performed an examination of the patient and discussed their management with the Nurse Practitioner. I have reviewed the Nurse Practitioner's notes and agree with the documented findings and plan of care
[2017-10-08 12:54] LABS: Iron Saturation 5.75 (15.00-50.00)
--- NOTE | 2017-10-08 15:00 | P.PN ---
Subjective Progress Note Date: 10/08/17 This patient is a 72-year-old right-handed white male who was seen in neurology consultation yesterday for evaluation of normal pressure hydrocephalus. His neurological examination yesterday revealed no significant findings or classical triad for a suspicion for NPH. He underwent a computed tomography scan of the brain on admission which did reveal mild degree of ventriculomegaly. On neurological examination yesterday he did not experience or demonstrate evidence of gait ataxia, urinary incontinence, or early dementia. These of the typical triad findings to suggest possibility of NPH. He has been treated for severe cardiomyopathy and this may be more of his cause for generalized weakness. We have discussed the case today with Dr. Wakefield and his nurse practitioner. We would encourage him to work with physical therapy to increase his activity. If he has further deterioration we would consider outpatient follow-up for him for more further assessment for NPH. At this time we will continue to closely monitor his condition during this admission. Patient has been doing quite well today and has had no further recurrence of generalized weakness. Plan is for his defibrillator to be interrogated later today. He denies any chest pain or shortness of breath. Once again he does not have classical features to suspect NPH as a cause of his initial generalized weakness. Would continue to follow closely with cardiology in regards to his CHF exacerbation. We'll await further recommendations from cardiology. Overall prognosis at this time remains guarded. His overall prognosis remains guarded. Objective - Vital Signs Vital signs: Vital Signs Temp 98 F 10/08/17 06:52 Pulse 70 10/08/17 11:43 Resp 18 10/08/17 11:31 BP 132/79 10/08/17 06:52 Pulse Ox 93 L 10/08/17 08:53 Intake & Output 10/07/17 10/08/17 10/08/17 18:59 06:59 18:59 Intake Total 1040 350 Output Total 200 650 Balance 840 -300 Intake: Intake, IV Titration 600 Amount Sodium Chloride 0.9% 1, 600 000 ml @ 75 mls/hr IV . [id number] ADRIÁN Rx#:[id number] Oral 240 350 Other 200 Output: Urine 200 650 Other: # Voids 2 3 - Exam Physical examination: PHYSICAL EXAMINATION: Patient is resting comfortably in bed. VITAL SIGNS: Blood pressure is [11/81]. Heart rate is [61]. Respiration is [18] . Temperature is [97.5]. HEENT: Head is atraumatic, neck is supple, there were no carotid bruits. CHEST: Lungs are clear to auscultation and percussion. CARDIAC: S1, S2 normal rate and rhythm. There is no murmur. ABDOMEN: Soft and nontender. Bowel sounds are present. EXTREMITIES: There is no pedal edema. Peripheral pulses are present. Neurological examination: Patient has a nonfocal neurological examination today. - Labs CBC & Chem 7: 10/08/17 06:27 10/08/17 06:27 Labs: Abnormal Lab Results - Last 24 Hours (Table) 10/08/17 10/08/17 Range/Units 06:27 06:27 Hgb 12.0 L (13.0-17.5) gm/dL MCHC 30.5 L (31.0-37.0) g/dL RDW 17.7 H (11.5-15.5) % Plt Count 114 L (150-450) k/uL Lymphocytes # 0.5 L (1.0-4.8) k/uL Chloride 110 H (98-107) mmol/L BUN 28 H (9-20) mg/dL Creatinine 1.40 H (0.66-1.25) mg/dL Total Bilirubin 3.0 H (0.2-1.3) mg/dL Total Protein 5.6 L (6.3-8.2) g/dL Albumin 3.1 L (3.5-5.0) g/dL Microbiology - Last 24 Hours (Table) 10/07/17 14:00 Gram Stain - Preliminary Sputum 10/07/17 16:00 Urine Culture - Preliminary Urine,Clean Catch 10/06/17 11:43 Blood Culture - Preliminary Blood No Growth after 24 hours Assessment and Plan (1) History of stroke Current Visit: Yes Status: Acute Code(s): Z86.73 - PRSNL HX OF TIA (TIA), AND CEREB INFRC W/O RESID DEFICITS SNOMED Code(s): 096247003 (2) Cardiomyopathy Current Visit: Yes Status: Acute Code(s): I42.9 - CARDIOMYOPATHY, UNSPECIFIED SNOMED Code(s): 74474134 (3) Heart failure Current Visit: Yes Status: Acute Code(s): I50.9 - HEART FAILURE, UNSPECIFIED SNOMED Code(s): 29142189 (4) Sleep apnea Current Visit: Yes Status: Acute Code(s): G47.30 - SLEEP APNEA, UNSPECIFIED SNOMED Code(s): 56942538 Plan: This patient is a 72-year-old male who was being evaluated for possibility of normal pressure hydrocephalus. He underwent a computed tomography scan of the brain on admission which revealed some degree of ventriculomegaly. His neurological examination at this time is not consistent with NPH. He does not have the classical triad of clinical findings raise suspicion for NPH. We are recommending he be evaluated by physical therapy for possible rehabilitation if necessary as outpatient. If the patient's symptoms should worsen we be happy to reevaluate him in the outpatient neurology clinic for further assessment. At this time he seems to be doing quite well. 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 Patient is being followed closely by cardiology. Plan is to have his defibrillator interrogated today by cardiology. We will await their further recommendations. Once again the patient does not show significant clinical findings of NPH. We will continue to follow his progress closely and he may follow-up in the outpatient neurology clinic if his symptoms should change or worsen. We will continue close neurological follow-up for the patient during this admission. His overall prognosis at this time remains guarded.
[2017-10-08] MEDS: FAMOTIDINE 20 MG TAB PO SCH (21:25)
[2017-10-08] MEDS: FINASTERIDE 5 MG TAB PO SCH (21:25)
[2017-10-08] MEDS: LOSARTAN 25 MG TAB PO SCH (21:26)
[2017-10-09] MEDS: HEPARIN SODIUM,PORCINE 5,000 UNIT/ML 1 ML VIAL SQ SCH (07:01)
[2017-10-09] MEDS: FUROSEMIDE 10 MG/ML 4 ML VIAL IV SCH (07:01)
[2017-10-09] MEDS: TAMSULOSIN 0.4 MG CAP.ER.24H PO SCH (07:01)
[2017-10-09] MEDS: ASPIRIN 81 MG PO SCH (07:01)
[2017-10-09] MEDS: CARVEDILOL 12.5 MG TAB PO SCH ×2 (07:01→16:38)
[2017-10-09] MEDS: IPRATROPIUM-ALBUTEROL 3 ML NEB INHALATION SCH ×3 (07:21→15:53)
[2017-10-09 07:25] LABS: Anisocytosis Slight; HCT 39.7 % (39.0-53.0); HGB 11.6 gm/dL (13.0-17.5); Hypochromasia Marked; MCH 24.6 pg (25.0-35.0); MCHC 29.3 g/dL (31.0-37.0); MCV 83.9 fL (80.0-100.0); Mean Platelet Volume 9.6; Platelet Count 109 k/uL (150-450); Poikilocytosis Slight; RBC 4.73 m/uL (4.30-5.90); RDW 17.9 % (11.5-15.5); WBC 6.3 k/uL (3.8-10.6)
[2017-10-09 07:28] LABS: Albumin 3.1 g/dL (3.5-5.0); Calcium 8.5 mg/dL (8.4-10.2); Total Bilirubin 2.8 mg/dL (0.2-1.3); Total Protein 5.4 g/dL (6.3-8.2)
[2017-10-09 08:48] LABS: Eosinophils # (M) 0.06 k/uL (0-0.7); Lymphocytes # (M) 0.25 k/uL (1.0-4.8); Monocytes # (M) 1.07 k/uL (0-1.0); Neutrophils # (M) 4.91 k/uL (1.3-7.7); Neutrophils % (M) 78 %; Nucleated Red Blood Cells 0 /100 WBC (0-0); Total Cells Counted 100
[2017-10-09 08:49] LABS: Polychromasia Present
[2017-10-09 08:50] LABS: Crenated RBC Present; Mixed Population RBC Present; Target Cells Present
--- NOTE | 2017-10-09 09:08 | P.PN ---
Subjective Progress Note Date: 10/09/17 Principal diagnosis: Generalized weakness and fatigue Mr. Fernandes is a pleasant 72-year-old male past medical history significant for coronary artery disease s/p bypass grafting 2012, chronic ischemic cardiomyopathy, chronic systolic heart failure, dyslipidemia, hypertension, chronic kidney disease, sleep apnea and BPH. He follows with Dr. Castillo in the office. We have been asked to see him in consultation for generalized weakness. He states on Thursday he was sitting in his recliner chair and he slipped out and fell to the floor. He denies chest pain, shortness of breath, palpitations or dizziness prior to falling. He states he just slipped out of the chair. He states once he was on the floor he felt extremely weak and was unable to stand up. He said he felt as thought he didn't have enough strength in his arms or legs. He sat on the floor for 2 hours before finally calling EMS for assistance. Brain CT obtained on admission negative for any acute process, with concerning for normal pressure hydrocephalus.neurology has seen the patient in consultation and agreed with the diagnosis of normal pressure hydrocephalus and have recommended physical therapy. We did interrogate his device and the AICD was functioning normally without any detectable arrhythmia. From a cardiac vascular standpoint overview, the patient can be discharged home. Objective - Vital Signs Vital signs: Vital Signs Temp 98.4 F 10/09/17 06:56 Pulse 68 10/09/17 07:36 Resp 14 10/09/17 06:56 BP 114/70 10/09/17 06:56 Pulse Ox 96 10/09/17 07:23 Intake & Output 10/08/17 10/09/17 10/09/17 18:59 06:59 18:59 Intake Total 1550 600 Output Total 650 203 Balance 900 397 Intake: Intake, IV Titration 600 600 Amount Sodium Chloride 0.9% 1, 600 600 000 ml @ 75 mls/hr IV . [id number] ADRIÁN Rx#:[id number] Oral 950 Output: Urine 650 203 Other: Voiding Method Urinal # Voids 1 # Bowel Movements 1 - Constitutional General appearance: Present: no acute distress - Respiratory Respiratory: bilateral: diminished - Cardiovascular Heart sounds: normal: S1, S2 - Labs CBC & Chem 7: 10/09/17 06:29 10/09/17 06:29 Labs: Abnormal Lab Results - Last 24 Hours (Table) 10/08/17 10/09/17 10/09/17 Range/Units 06:27 06:29 06:29 Hgb 11.6 L (13.0-17.5) gm/dL MCH 24.6 L (25.0-35.0) pg MCHC 29.3 L (31.0-37.0) g/dL RDW 17.9 H (11.5-15.5) % Plt Count 109 L (150-450) k/uL Lymphocytes # (Manual) 0.25 L (1.0-4.8) k/uL Monocytes # (Manual) 1.07 H (0-1.0) k/uL Chloride 108 H (98-107) mmol/L BUN 24 H (9-20) mg/dL Creatinine 1.28 H (0.66-1.25) mg/dL Iron 21 L (65-175) ug/dL Iron Saturation 5.75 L (15.00-50.00) Total Bilirubin 2.8 H (0.2-1.3) mg/dL Total Protein 5.4 L (6.3-8.2) g/dL Albumin 3.1 L (3.5-5.0) g/dL Microbiology - Last 24 Hours (Table) 10/07/17 16:00 Urine Culture - Final Urine,Clean Catch 10/06/17 11:43 Blood Culture - Preliminary Blood No Growth after 48 hours 10/07/17 14:00 Gram Stain - Preliminary Sputum Assessment and Plan Assessment: Assessment #1 generalized weakness and fatigue #2 ischemic cardiomyopathy and status post AICD placement #3 coronary artery disease and status post CABG #4 multiple comorbid conditions Plan #1 the AICD was checked and was functioning normally #2 the patient can be discharged home.
--- NOTE | 2017-10-09 11:15 | EEG ---
ELECTROENCEPHALOGRAM REPORT DATE OF EE10/07/2017. ELECTROENCEPHALOGRAPHIC EXAMINATION REPORT: INDICATION FOR EXAMINATION: This patient is a 72-year-old male being evaluated for generalized weakness and possible normal pressure hydrocephalus. CT scan of the brain reveals mild ventriculomegaly. AGE: [age]. EEG FINDINGS: A routine 21 channel awake digital EEG recording was accomplished utilizing the 10-20 international system with bipolar and referential montages. The background activity in the most alert resting state consists of a low to medium amplitude, fairly well developed well sustained 7-8 Hz activity over the posterior head regions. This posterior rhythm attenuates to eye opening. There is a small amount of low amplitude 18-20 Hz beta activity seen maximally over the anterior head regions. Muscle and movement artifact was observed on a few occasions during the tracing. Hyperventilation was not performed. Photic stimulation at flash frequencies of 2-30 Hz produced a minimal occipital driving response. No epileptiform discharges were seen. IMPRESSION: This EEG is within normal limits for the patient's age. The EEG failed to reveal any focal, lateralized, or epileptiform abnormalities. Clinical correlation is recommended. MMODL / IJN: [id number] /
[2017-10-09 14:22] VITALS: BP 150/75; PULSE 64; RESP 15; TEMP 98.5
--- NOTE | 2017-10-09 16:23 | P.DS ---
Providers Date of admission: 10/06/17 00:05 Expected date of discharge: 10/09/17 Attending physician: Gage De La Rosa Consults: 10/06/17 00:09 Consult Physician Urgent Consulting Provider: Raheem Medina Consult Reason/Comments: weakness, eval for nph Do you want consulting provider notified?: Yes 10/07/17 08:51 Consult Physician Routine Consulting Provider: Juaquin Cadena Consult Reason/Comments: cardiomypathy and increased weakness Do you want consulting provider notified?: Yes Primary care physician: [facility] Course: Discharge Diagnosis 1.Acute exacerbation of CHF likely acute on chronic systolic heart failure related to chronic ischemic cardiomyopathy. Lasix 40 mg IV has been ordered. 2 -D echo has been ordered per cardiology services. BNP 43,400. Patient will be discharged home on Lasix 40 mg by mouth daily. She has been cleared for discharge from pulmonary standpoint 2. Generalized weakness possibly related to normal pressure hydrocephalus. Brain CT completed showing no acute process. The ventricles are diffusely more prominent than the sulcal pattern and basal cisterns, this finding can correlate with clinical diagnostic of normal pressure hydrocephalus. Neurology following. EEG has been ordered. Per neurology patient to be followed closely by cardiology patient does not show any significant clinical findings of NPH per neurology. Patient may follow-up in outpatient neurology clinic if his symptoms should worsen or change. 3. Elevated lactic acid. Lactic acid 2.3. Urinary analysis, urine culture, sputum culture and blood cultures have been ordered. Chest x-ray completed showing no definitive acute process. Minimal bilateral pleural effusions noted , of doubtful clinical significance. Blood, urine and sputum cultures currently negative. Patient remains afebrile. White blood cell 6.5. 4. History of heart failure 5. History of CVA/TIA 6. History of hyperlipidemia 7. History of kidney disease stage III. Creatinine 1.40. Repeat labs have been ordered. Creatinine today 1.28. [place] to follow-up closely with PCP 8. History of coronary artery bypass 2-3 years ago 9. History of defibrillator. Cardiology services are following plan for interrogation defibrillator today. Per cardiology AICD has been checked and is functioning normally. Patient has been cleared for discharge from cardiology standpoint 10. Possible iron deficiency anemia. Hemoglobin 12.0. Iron studies have been ordered and occult stool blood. No signs of active bleeding at this time. She' ll be discharged home on ferrous sulfate 325 twice a day to follow-up closely with his primary care provider Dr. Wright Hospital course This is a 72-year-old male patient of Dr. Emilee Wright. Patient presents to the emergency room with complaints of generalized weakness patient states that he was sitting up in his chair and slid out of his chair and was then too weak to get back up. Patient has a known past medical history of heart failure, CVA , hyperlipidemia, prostate disorder, renal disorder, sleep apnea, TIAs and coronary artery bypass 3 years ago. Chest x-ray completed emergency room showing no definitive acute process. Minimal bilateral pleural effusions noted of doubtful clinical significance. CT of the brain completed showing no acute process, the ventricles are diffusely more prominent than the circular pattern and basals cisterns, this finding can correlate with clinical significance of normal pressure hydrocephalus. Neurology consult has been placed. EKG completed showing normal showing normal sinus rhythm, low-voltage QRS, low anterior fascicular block, inferior infarct age undetermined and possible anterior lateral infarct age at age undetermined. Patient denies chest pain or shortness of breath at this time. Denies nausea vomiting or diarrhea. Awaiting neurology consults 10/07/2017, patient seen eval examined during the rounds clinically patient is doing slightly better more awake and alert strength is coming back patient is undergoing physical therapy and rehab able to walk 8-10 steps significant edema in the lower extremities are noted patient is being placed on low-dose IV furosemide to be changed to oral daily medications reviewed him a care plan discussed with the family present at bedside blood culture no growth so far On 10/08/2017 patient is currently sitting up in bed stating he is feeling improved and has not had episodes of weakness. Patient was started on IV Lasix yesterday due to increased swelling in lower extremity. Swelling has improved. Neurology services are consulted. The incomplete BNP completed [id number]. 2-D echo has been ordered. Plan for defibrillator to be interrogated today. Cultures currently negative. Denies chest pain or shortness breath. Denies nausea vomiting or diarrhea. Denies any urinary symptoms at this time. On 11/2017 patient has been cleared for discharge from cardiology standpoint. On 10/09/2017 patient has been cleared for discharge from cardiology standpoint. Patient had ICD irrigated and is currently functioning normally. Discussed case with Dr. Rhodes per cardiology. Patient will follow-up outpatient. Patient will be discharged home on Lasix 40 mg by mouth daily. Patient to follow-up with primary care provider in regards to a deficiency anemia and chronic renal disease. I performed an examination of the patient and discussed their management with the Nurse Practitioner. I have reviewed the Nurse Practitioner's notes and agree with the documented findings and plan of care Patient Condition at Discharge: Stable Plan - Discharge Summary Discharge Rx Participant: Yes New Discharge Prescriptions: New Ferrous Sulfate [Feosol] 325 mg PO BID #60 tab Furosemide [Lasix] 40 mg PO DAILY #30 tablet Continue Finasteride [Proscar] 5 mg PO HS Aspirin [Adult Low Dose Aspirin EC] 81 mg PO DAILY Tamsulosin [Flomax] 0.4 mg PO DAILY Famotidine 20 mg PO HS Atorvastatin [Lipitor] 40 mg PO HS Losartan [Cozaar] 25 mg PO HS Carvedilol [Coreg*] 25 mg PO BID Discharge Medication List Aspirin [Adult Low Dose Aspirin EC] 81 mg PO DAILY 07/06/17 [History] Atorvastatin [Lipitor] 40 mg PO HS 07/06/17 [History] Carvedilol [Coreg*] 25 mg PO BID 07/06/17 [History] Famotidine 20 mg PO HS 07/06/17 [History] Finasteride [Proscar] 5 mg PO HS 07/06/17 [History] Losartan [Cozaar] 25 mg PO HS 07/06/17 [History] Tamsulosin [Flomax] 0.4 mg PO DAILY 07/06/17 [History] Ferrous Sulfate [Feosol] 325 mg PO BID #60 tab 10/09/17 [Rx] Furosemide [Lasix] 40 mg PO DAILY #30 tablet 10/09/17 [Rx] Follow up Appointment(s)/Referral(s): [facility], [NON-STAFF] - Emilee Wright DO [Primary Care Provider] - 1-2 days Juaquin Cadena MD [STAFF PHYSICIAN] - 1 Week Activity/Diet/Wound Care/Special Instructions: Diet heart healthy Activity as tolerated
--- NOTE | 2017-10-09 18:49 | P.PN ---
Subjective Progress Note Date: 10/09/17 This patient is a 72-year-old right-handed white male who was seen in neurology consultation yesterday for evaluation of normal pressure hydrocephalus. His neurological examination yesterday revealed no significant findings or classical triad for a suspicion for NPH. He underwent a computed tomography scan of the brain on admission which did reveal mild degree of ventriculomegaly. On neurological examination yesterday he did not experience or demonstrate evidence of gait ataxia, urinary incontinence, or early dementia. These of the typical triad findings to suggest possibility of NPH. He has been treated for severe cardiomyopathy and this may be more of his cause for generalized weakness. We have discussed the case today with Dr. Wakefield and his nurse practitioner. We would encourage him to work with physical therapy to increase his activity. If he has further deterioration we would consider outpatient follow-up for him for more further assessment for NPH. At this time we will continue to closely monitor his condition during this admission. Patient has been doing quite well today and has had no further recurrence of generalized weakness. Plan is for his defibrillator to be interrogated later today. He denies any chest pain or shortness of breath. Once again he does not have classical features to suspect NPH as a cause of his initial generalized weakness. Would continue to follow closely with cardiology in regards to his CHF exacerbation. We will await further recommendations from cardiology. Patient had his AICD device interogated yesterday and is function fine with no evidence of any cardiac arrhythmia. Patient continues to do very well in terms of his overall cardiac status. He has been cleared by cardiology for discharge home today. Patient may follow-up in the outpatient neurology clinic as well in 3-4 weeks. Overall prognosis at this time remains guarded. His overall prognosis remains guarded. Objective - Vital Signs Vital signs: Vital Signs Temp 98.4 F 10/09/17 06:56 Pulse 68 10/09/17 07:36 Resp 14 10/09/17 06:56 BP 114/70 10/09/17 06:56 Pulse Ox 96 10/09/17 07:23 Intake & Output 10/08/17 10/09/17 10/09/17 18:59 06:59 18:59 Intake Total 1550 600 Output Total 650 203 Balance 900 397 Intake: Intake, IV Titration 600 600 Amount Sodium Chloride 0.9% 1, 600 600 000 ml @ 75 mls/hr IV . [id number] ADRIÁN Rx#:[id number] Oral 950 Output: Urine 650 203 Other: Voiding Method Urinal # Voids 1 # Bowel Movements 1 - Exam Physical examination: PHYSICAL EXAMINATION: Patient is resting comfortably in bed. VITAL SIGNS: Blood pressure is [150/75]. Heart rate is [64]. Respiration is [15] . Temperature is [98.5]. HEENT: Head is atraumatic, neck is supple, there were no carotid bruits. CHEST: Lungs are clear to auscultation and percussion. CARDIAC: S1, S2 normal rate and rhythm. There is no murmur. ABDOMEN: Soft and nontender. Bowel sounds are present. EXTREMITIES: There is no pedal edema. Peripheral pulses are present. Neurological examination: Patient has a nonfocal neurological examination today. - Labs CBC & Chem 7: 10/09/17 06:29 10/09/17 06:29 Labs: Abnormal Lab Results - Last 24 Hours (Table) 10/08/17 10/09/17 10/09/17 Range/Units 06:27 06:29 06:29 Hgb 11.6 L (13.0-17.5) gm/dL MCH 24.6 L (25.0-35.0) pg MCHC 29.3 L (31.0-37.0) g/dL RDW 17.9 H (11.5-15.5) % Plt Count 109 L (150-450) k/uL Lymphocytes # (Manual) 0.25 L (1.0-4.8) k/uL Monocytes # (Manual) 1.07 H (0-1.0) k/uL Chloride 108 H (98-107) mmol/L BUN 24 H (9-20) mg/dL Creatinine 1.28 H (0.66-1.25) mg/dL Iron 21 L (65-175) ug/dL Iron Saturation 5.75 L (15.00-50.00) Total Bilirubin 2.8 H (0.2-1.3) mg/dL Total Protein 5.4 L (6.3-8.2) g/dL Albumin 3.1 L (3.5-5.0) g/dL Microbiology - Last 24 Hours (Table) 10/07/17 16:00 Urine Culture - Final Urine,Clean Catch 10/06/17 11:43 Blood Culture - Preliminary Blood No Growth after 48 hours 10/07/17 14:00 Gram Stain - Preliminary Sputum Assessment and Plan (1) History of stroke Current Visit: Yes Status: Acute Code(s): Z86.73 - PRSNL HX OF TIA (TIA), AND CEREB INFRC W/O RESID DEFICITS SNOMED Code(s): 748504990 (2) Cardiomyopathy Current Visit: Yes Status: Acute Code(s): I42.9 - CARDIOMYOPATHY, UNSPECIFIED SNOMED Code(s): 10648214 (3) Heart failure Current Visit: Yes Status: Acute Code(s): I50.9 - HEART FAILURE, UNSPECIFIED SNOMED Code(s): 89070529 (4) Sleep apnea Current Visit: Yes Status: Acute Code(s): G47.30 - SLEEP APNEA, UNSPECIFIED SNOMED Code(s): 31629050 Plan: This patient is a 72-year-old right-handed white male who was initially evaluated for symptoms of generalized weakness. Patient underwent an initial evaluation in the emergency room which included computed tomography scan of the brain. CAT scan of the brain revealed evidence of old ischemic stroke as well as ventricular enlargement suggesting possibility of normal pressure hydrocephalus. Patient's clinical neurological examination was performed and failed to reveal the classical triad for NPH. Patient has been doing quite well in fact over the last few days and is being readied for possible discharge home later today. He does not have the classical triad of gait apraxia, urinary incontinence, and dementia which are typically the findings for NPH. His ventricular sizes were noted on CAT scan to only show slight enlargement. We have recommended the patient to continue to work with cardiology and rehabilitation to improve his overall generalized strength. Neurologically he remains very much intact. He was able to complete a routine EEG yesterday which was reviewed and is within normal limits for his age. Patient is being considered for possible discharge home later today. He may follow-up in the outpatient neurology clinic in 3-4 weeks. His overall prognosis at this time remains guarded.
--- NOTE | 2017-10-12 12:07 | ECHOF ---
Referral Reason:weakness, known cardiomyopathy MEASUREMENTS -------- HEIGHT: 182.9 cm WEIGHT: 108.9 kg BP: 151/87 RVIDd: 3.4 cm (< 3.3) IVSd: 1.5 cm (0.6 - 1.1) LVIDd: 5.6 cm (3.9 - 5.3) LVPWd: 1.5 cm (0.6 - 1.1) IVSs: 1.9 cm LVIDs: 4.5 cm LVPWs: 1.9 cm LA Diam: 4.4 cm (2.7 - 3.8) LAESV Index (A-L): 49.03 ml/m Ao Diam: 3.7 cm (2.0 - 3.7) AV Cusp: 2.3 cm (1.5 - 2.6) EPSS: 2.0 cm MV E Daniel: 0.89 m/s MV DecT: 213 ms MV A Daniel: 0.54 m/s MV E/A Ratio: 1.65 RAP: 15.00 mmHg RVSP: 54.51 mmHg MV EF SLOPE: 26.42 mm/s (70 - 150) MV EXCURSION: 1.59 cm (> 18.000) FINDINGS -------- Sinus rhythm. This was a technically good study. The left ventricular size is normal. There is moderate concentric left ventricular hypertrophy. O verall left ventricular systolic function is severely impaired with, an EF between 25 - 30 %. Basal inferior LV wall motion is hypokinetic. Basal inferoseptal LV wall motion is hypokinetic. Apic al anterior LV wall motion is hypokinetic. Apical lateral LV wall motion is hypokinetic. Apical inferior LV wall motion is hypokinetic. Apical septum LV wall motion is dyskinetic. The right ventricle is mildly enlarged. LA is severely dilated >40 ml/m2 The right atrium is normal in size. There is mild aortic valve sclerosis. The mitral valve leaflets are mildly thickened. Mild mitral annular calcification present. Mild m itral regurgitation is present. Mild tricuspid regurgitation present. There is moderate to severe pulmonary hypertension. The rig ht ventricular systolic pressure, as measured by Doppler, is 54.51mmHg. Trace/mild (physiologic) pulmonic regurgitation. The aortic root size is normal. The inferior vena cava is dilated with no significant inspiratory collapse which is consistent estima colt right atrial pressure of >15 mmHg. CONCLUSIONS -------- 1. Sinus rhythm. 2. This was a technically good study. 3. The left ventricular size is normal. 4. There is moderate concentric left ventricular hypertrophy. 5. Overall left ventricular systolic function is severely impaired with, an EF between 25 - 30 %. 6. Basal inferior LV wall motion is hypokinetic. 7. Basal inferoseptal LV wall motion is hypokinetic. 8. Apical anterior LV wall motion is hypokinetic. 9. Apical lateral LV wall motion is hypokinetic. 10. Apical inferior LV wall motion is hypokinetic. 11. Apical septum LV wall motion is dyskinetic. 12. The right ventricle is mildly enlarged. 13. LA is severely dilated >40 ml/m2 14. The right atrium is normal in size. 15. There is mild aortic valve sclerosis. 16. The mitral valve leaflets are mildly thickened. 17. Mild mitral annular calcification present. 18. Mild mitral regurgitation is present. 19. Mild tricuspid regurgitation present. 20. There is moderate to severe pulmonary hypertension. 21. The right ventricular systolic pressure, as measured by Doppler, is 54.51mmHg. 22. Trace/mild (physiologic) pulmonic regurgitation. 23. The aortic root size is normal. 24. The inferior vena cava is dilated with no significant inspiratory collapse which is consistent es timated right atrial pressure of >15 mmHg. ELECTRONIC ENGINEERING DRAFTSPERSON: FIDEL Valle
== END 2017-10-09 19:07 | disposition home or self-care (01) ==
LOC: EC 19:52 → 3SUR 10-06 00:05 → INTOOBSV 10-06 00:05 → UNDODISIN 10-09 19:07
PROVIDERS: ADMIT Internal Medicine; ATTEND Internal Medicine
PROC: 4B02XTZ Measurement of Cardiac Defibrillator, External Approach (ICD-10-PCS; principal; 2017-10-08)
DX: I13.0 Hypertensive heart and chronic kidney disease with heart failure and stage 1 through stage 4 chronic kidney disease, or unspecified chronic kidney disease (principal); I50.22 Chronic systolic (congestive) heart failure; G91.2 (Idiopathic) normal pressure hydrocephalus; N39.0 Urinary tract infection, site not specified; E87.2 Acidosis; E78.5 Hyperlipidemia, unspecified; E86.0 Dehydration; G47.30 Sleep apnea, unspecified; G93.89 Other specified disorders of brain; I25.10 Atherosclerotic heart disease of native coronary artery without angina pectoris; I25.5 Ischemic cardiomyopathy; I73.9 Peripheral vascular disease, unspecified; Z95.828 Presence of other vascular implants and grafts; N18.3 Chronic kidney disease, stage 3 (moderate); N40.1 Benign prostatic hyperplasia with lower urinary tract symptoms; W07.XXXA Fall from chair, initial encounter; Z79.82 Long term (current) use of aspirin; Z79.899 Other long term (current) drug therapy; Z86.73 Personal history of transient ischemic attack (TIA), and cerebral infarction without residual deficits; Z86.79 Personal history of other diseases of the circulatory system; Z87.891 Personal history of nicotine dependence; Z95.1 Presence of aortocoronary bypass graft; Z88.2 Allergy status to sulfonamides; Z87.442 Personal history of urinary calculi; Z45.02 Encounter for adjustment and management of automatic implantable cardiac defibrillator
CPT/HCPCS: 93292; 96376 ×2; 96361 ×4; 96372 ×4; 96374; 96360; 99285; 36415; 94640 ×8; 94760; 95819; 93005; 93306; 97116 ×2; 97162; 97535; 97166; 84439; 84481; 83880; 80053 ×5; 82728; 82550; 82553; 83540; 83550; 83605 ×2; 83735; 84100; 84443; 84484; 85025 ×5; 85610; 85730; 81001; 87040; 87070; 87086; 87205; 71046; 70450; G0378 ×4; S0138 ×3; J1644 ×4; J1940 ×3

== ENCOUNTER 2017-10-10 12:22 | Inpatient (IN) | payer MEDICARE ==
--- NOTE | 2017-10-10 13:12 | ED ---
General Adult HPI - General Source: patient, RN notes reviewed, old records reviewed Mode of arrival: wheelchair Limitations: physical limitation <Pranav Harrington - Last Filed: 10/10/17 17:31> <Veto Costello - Last Filed: 10/10/17 17:40> - General Chief complaint: Urogenital Stated complaint: testicles swollen Time Seen by Provider: 10/10/17 12:49 - History of Present Illness Initial comments: Patient is a 72-year-old male presenting to the emergency room today with a chief complaint of edema to his legs bilaterally and scrotal area, and increased weakness. Patient was seen here in the emergency room and recently discharged yesterday. Patient son-in-law at bedside stating that he helps care for his [id number]. States he's been weaker since coming home. Since he had a few falls yesterday but he was close by and able to catch him. States she 's noticed that there has been increased swelling to the testicular area over the last 4 days. Patient states it is painful. They do admit that Lasix was started on last admission have been taking this for leg swelling. Patient denies any other complaints. Patient denies any recent fever, chills, shortness of breath, chest pain, back pain, abdominal pain, nausea or vomiting, headaches or visual changes, or any other complaints. (Pranav Harrington) - Related Data Home Medications Medication Instructions Recorded Confirmed Aspirin [Adult Low Dose Aspirin EC] 81 mg PO DAILY 07/06/17 10/05/17 Atorvastatin [Lipitor] 40 mg PO HS 07/06/17 10/05/17 Carvedilol [Coreg*] 25 mg PO BID 07/06/17 10/05/17 Famotidine 20 mg PO HS 07/06/17 10/05/17 Finasteride [Proscar] 5 mg PO HS 07/06/17 10/05/17 Losartan [Cozaar] 25 mg PO HS 07/06/17 10/05/17 Tamsulosin [Flomax] 0.4 mg PO DAILY 07/06/17 10/05/17 Previous Rx's Medication Instructions Recorded Ferrous Sulfate [Feosol] 325 mg PO BID #60 tab 10/09/17 Furosemide [Lasix] 40 mg PO DAILY #30 tablet 10/09/17 Allergies Allergy/AdvReac Type Severity Reaction Status Date / Time Sulfa (Sulfonamide Allergy Itching Verified 10/10/17 12:35 Antibiotics) Review of Systems ROS Other: All systems not noted in ROS Statement are negative. <Pranav Harrington - Last Filed: 10/10/17 17:31> ROS Other: All systems not noted in ROS Statement are negative. <Veto Costello - Last Filed: 10/10/17 17:40> ROS Statement: Those systems with pertinent positive or pertinent negative responses have been documented in the HPI. 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 bypass 2-3 yrs ago, stents keisha legs, growth removed from jaw Past Anesthesia/Blood Transfusion Reactions: Motion Sickness Past Psychological History: No Psychological Hx Reported Smoking Status: Former smoker Past Alcohol Use History: None Reported Past Drug Use History: None Reported - Past Family History Mother Family Medical History: No Reported History <Pranav Harrington - Last Filed: 10/10/17 17:31> General Exam Limitations: physical limitation <Pranav Harrington - Last Filed: 10/10/17 17:31> <Veto Costello - Last Filed: 10/10/17 17:40> - General Exam Comments Initial Comments: General: The patient is awake and alert, in no distress, and does not appear acutely ill. Eye: Pupils are equal, round and reactive to light, extra-ocular movements are intact. No nystagmus. There is normal conjunctiva bilaterally. No signs of icterus. Ears, nose, mouth and throat: There are moist mucous membranes and no oral lesions. Neck: The neck is supple, there is no tenderness or JVD. Cardiovascular: There is a regular rate and rhythm. No murmur, rub or gallop is appreciated. Respiratory: Lungs are clear to auscultation, respirations are non-labored, breath sounds are equal. No wheezes, stridor, rales, or rhonchi. Musculoskeletal: Normal ROM, no tenderness. Strength 5/5. Sensation intact. Pulses equal bilaterally 2+. 2+ pitting edema. Neurological: A&O x 3. CN II-XII intact, There are no obvious motor or sensory deficits. Coordination appears grossly intact. Speech is normal. Skin: Skin is warm and dry and no rashes or lesions are noted. Psychiatric: Cooperative, appropriate mood & affect, normal judgment. : Patient does have large amount of swelling to the scrotum bilaterally. ( Pranav Harrington) Course <Pranav Harrington - Last Filed: 10/10/17 17:31> <Veto Costello - Last Filed: 10/10/17 17:40> Vital Signs 10/10/17 12:31 Temperature 98.2 F Pulse Rate 63 Respiratory 18 Rate Blood Pressure 107/69 O2 Sat by Pulse 94 L Oximetry - Reevaluation(s) Reevaluation #1: 10/10/17 17:27 PA supervision: I personally saw and examined the patient. I reviewed and agree with the PAs findings including all diagnostic interpretations treatment plans is written unless otherwise stated. (Veto Costello) Reevaluation #2: 10/10/17 17:37 I did discuss the case Dr. Hamilton. (Veto Costello) Procedures <Pranav Harrington - Last Filed: 10/10/17 17:31> <Veto Costello - Last Filed: 10/10/17 17:40> - Procedures Initial comment: The patient had urinary retention did require Steven catheter. The patient had a marked amount of edema and it was a difficult insertion after multiple attempts where finally able to get a 12-Irish I Steven catheter placed with good results. Patient did receive some IV medication including 50 of fentanyl and 2 mg of Versed ordered by me. (Veto Costello) Medical Decision Making - Lab Data Result diagrams: 10/10/17 13:36 10/10/17 13:36 <Pranav Harrington - Last Filed: 10/10/17 17:31> - Lab Data Result diagrams: 10/10/17 13:36 10/10/17 13:36 <Veto Costello - Last Filed: 10/10/17 17:40> - Medical Decision Making Patient's ultrasound of the scrotum shows bilateral hydroceles with symmetrical flow and a right epididymal cyst. Patient's blood work is reviewed. Patient's BMP 26,000 today is improved from previous admission at 43,000. Patient's potassium 3.2. Has recently started Lasix. Patient does have pitting edema to the lower extremities and moderate swelling scrotum. Patient has had falls at home. Son in law is at Bedside stating that patient has been weaker and more difficult time getting around and is worried about falling. Hoping that they could be placed for rehab. Patient was unable to provide urine sample here the emergency room after multiple tenths. Bladder scan was obtained showing greater than 1 L. Steven catheter has been placed. (Pranav Harrington) - Lab Data Lab Results 10/10/17 10/10/17 10/10/17 Range/Units 13:36 13:36 13:36 WBC 8.6 (3.8-10.6) k/uL RBC 5.25 (4.30-5.90) m/uL Hgb 13.0 (13.0-17.5) gm/dL Hct 43.0 (39.0-53.0) % MCV 81.8 (80.0-100.0) fL MCH 24.7 L (25.0-35.0) pg MCHC 30.2 L (31.0-37.0) g/dL RDW 18.0 H (11.5-15.5) % Plt Count 117 L (150-450) k/uL Neutrophils % (Manual) 79 % Lymphocytes % (Manual) 5 % Monocytes % (Manual) 16 % Neutrophils # (Manual) 6.79 (1.3-7.7) k/uL Lymphocytes # (Manual) 0.43 L (1.0-4.8) k/uL Monocytes # (Manual) 1.38 H (0-1.0) k/uL Nucleated RBCs 0 (0-0) /100 WBC Manual Slide Review Performed Hypochromasia Marked Poikilocytosis Slight Anisocytosis Slight Microcytosis Slight Fragmented RBCs Present PT (9.0-12.0) sec INR (<1.2) APTT (22.0-30.0) sec Sodium 142 (137-145) mmol/L Potassium 3.2 L (3.5-5.1) mmol/L Chloride 103 (98-107) mmol/L Carbon Dioxide 29 (22-30) mmol/L Anion Gap 10 mmol/L BUN 26 H (9-20) mg/dL Creatinine 1.24 (0.66-1.25) mg/dL Est GFR (CKD-EPI)AfAm 66 (>60 ml/min/1.73 sqM) Est GFR (CKD-EPI)NonAf 57 (>60 ml/min/1.73 sqM) Glucose 85 (74-99) mg/dL Calcium 9.0 (8.4-10.2) mg/dL Total Bilirubin 3.9 H (0.2-1.3) mg/dL AST 41 (17-59) U/L ALT 67 (21-72) U/L Alkaline Phosphatase 91 (38-126) U/L NT-Pro-B Natriuret Pep 91046 pg/mL Total Protein 6.1 L (6.3-8.2) g/dL Albumin 3.5 (3.5-5.0) g/dL 10/10/17 Range/Units 13:36 WBC (3.8-10.6) k/uL RBC (4.30-5.90) m/uL Hgb (13.0-17.5) gm/dL Hct (39.0-53.0) % MCV (80.0-100.0) fL MCH (25.0-35.0) pg MCHC (31.0-37.0) g/dL RDW (11.5-15.5) % Plt Count (150-450) k/uL Neutrophils % (Manual) % Lymphocytes % (Manual) % Monocytes % (Manual) % Neutrophils # (Manual) (1.3-7.7) k/uL Lymphocytes # (Manual) (1.0-4.8) k/uL Monocytes # (Manual) (0-1.0) k/uL Nucleated RBCs (0-0) /100 WBC Manual Slide Review Hypochromasia Poikilocytosis Anisocytosis Microcytosis Fragmented RBCs PT 12.5 H (9.0-12.0) sec INR 1.3 H (<1.2) APTT 25.5 (22.0-30.0) sec Sodium (137-145) mmol/L Potassium (3.5-5.1) mmol/L Chloride (98-107) mmol/L Carbon Dioxide (22-30) mmol/L Anion Gap mmol/L BUN (9-20) mg/dL Creatinine (0.66-1.25) mg/dL Est GFR (CKD-EPI)AfAm (>60 ml/min/1.73 sqM) Est GFR (CKD-EPI)NonAf (>60 ml/min/1.73 sqM) Glucose (74-99) mg/dL Calcium (8.4-10.2) mg/dL Total Bilirubin (0.2-1.3) mg/dL AST (17-59) U/L ALT (21-72) U/L Alkaline Phosphatase (38-126) U/L NT-Pro-B Natriuret Pep pg/mL Total Protein (6.3-8.2) g/dL Albumin (3.5-5.0) g/dL Disposition Is patient prescribed a controlled substance at d/c from ED?: No Time of Disposition: 17:32 <Pranav Harrington - Last Filed: 10/10/17 17:31> <Veto Costello - Last Filed: 10/10/17 17:40> Clinical Impression: Weakness, CHF (congestive heart failure), Scrotal swelling, Urinary retention, Hypokalemia Disposition: ADMITTED IP TO THIS HOSP Condition: Good Referrals: Emilee Wright DO [Primary Care Provider] - 1-2 days
[2017-10-10 14:02] LABS: INR 1.3 (<1.2); Partial Thromboplastin Time 25.5 sec (22.0-30.0); Prothrombin Time 12.5 sec (9.0-12.0)
[2017-10-10 14:03] LABS: Albumin 3.5 g/dL (3.5-5.0); Potassium 3.2 mmol/L (3.5-5.1); Total Bilirubin 3.9 mg/dL (0.2-1.3); Total Protein 6.1 g/dL (6.3-8.2)
[2017-10-10 14:16] LABS: Anisocytosis Slight; Hypochromasia Marked; MCH 24.7 pg (25.0-35.0); MCHC 30.2 g/dL (31.0-37.0); MCV 81.8 fL (80.0-100.0); Microcytosis Slight; Platelet Count 117 k/uL (150-450); Poikilocytosis Slight; RBC 5.25 m/uL (4.30-5.90); WBC 8.6 k/uL (3.8-10.6)
[2017-10-10 14:26] LABS: Lymphocytes # (M) 0.43 k/uL (1.0-4.8); Monocytes # (M) 1.38 k/uL (0-1.0); Neutrophils # (M) 6.79 k/uL (1.3-7.7); Neutrophils % (M) 79 %; Nucleated Red Blood Cells 0 /100 WBC (0-0); Total Cells Counted 100
[2017-10-10 14:27] LABS: RBC Fragments Present
--- NOTE | 2017-10-10 15:09 | US ---
EXAMINATION TYPE: US scrotum with doppler. Grayscale and color Doppler Duplex imaging performed of brittaney nam scrotum. DATE OF EXAM: 10/10/2017 COMPARISON: NONE CLINICAL HISTORY: Pain. EXAM MEASUREMENTS: TESTICLES: Right Testicle: 3.5 x 2.5 x 2.5 cm Left Testicle: 3.8 x 2.7 x 2.9 cm EPIDIDYMIS HEAD: Right Epididymis: 0.9 cm Left Epididymis: 1.2 cm Doppler performed to assess for testicular vascularity; good bilateral color flow and waveforms are s een. There is no evidence of testicular torsion. Presence of hydroceles: Bilateral Presence of varicoceles: Vessels appear prominent with and without valsalva Limited due to pt unable to control shaking in left leg during exam. Bilateral testicles appear heterogenous in echotexture. Prominent edematous scrotal wall noted. Incidental cyst noted in the right epididymis. IMPRESSION: 1. Bilateral Hydroceles. 2. Mild heterogeneity of the testicles. 3. Symmetrical blood flow. 4. Right epididymal cyst
[2017-10-10] MEDS ORDERED: POTASSIUM CHLORIDE ER 20 MEQ TAB.ER PO STA (16:00)
[2017-10-10] MEDS ORDERED: MIDAZOLAM 2 MG/2 ML VIAL IV ONE (16:21)
[2017-10-10] MEDS ORDERED: fentaNYL (PF) 50 MCG/ML 2 ML AMP IVP STA (16:23)
[2017-10-10] MEDS ORDERED: fentaNYL (PF) 2,500 MCG in SODIUM CHLORIDE 0.9% 200 ML IV SCH (16:30)
--- NOTE | 2017-10-10 17:04 | XR ---
EXAMINATION TYPE: XR chest 2V DATE OF EXAM: 10/10/2017 COMPARISON: 10/05/2017 INDICATION: Leg swelling TECHNIQUE: Frontal and lateral views of the chest are obtained. FINDINGS: The heart size is enlarged. The pulmonary vasculature is normal. The lungs are clear. Pacemaker overlies left chest. No significant interval changes evident. IMPRESSION: 1. Cardiomegaly. 2. No acute pulmonary process.
[2017-10-10] MEDS ORDERED: NALOXONE 0.4 MG/ML 1 ML VIAL IV PRN (17:32)
[2017-10-10] MEDS ORDERED: MORPHINE SULFATE 4 MG/ML SYRINGE IV PRN (17:32)
[2017-10-10] MEDS ORDERED: ONDANSETRON 4 MG/2 ML VIAL IVP PRN (17:32)
[2017-10-10] MEDS ORDERED: ACETAMINOPHEN TAB 325 MG TAB PO PRN (17:32)
[2017-10-10] MEDS ORDERED: SODIUM CHLORIDE 0.9% 1,000 ML IV ONE (17:32)
[2017-10-10 17:52] LABS: Appearance,Urine Clear (Clear); Bilirubin,Urine Negative (Negative); Blood,Urine Negative (Negative); Color,Urine Yellow; Glucose,Urine (UA) Negative (Negative); Ketones,Urine Negative (Negative); Leukocyte Esterase,Urine Negative (Negative); Nitrite,Urine Negative (Negative); PH, Urine 5.5 (5.0-8.0); Protein,Urine Negative (Negative); Specific Gravity,Urine 1.008 (1.001-1.035); Urobilinogen,Urine <2.0 mg/dL (<2.0)
[2017-10-10 20:36] VITALS: BMI 25.4
[2017-10-10] MEDS: LOSARTAN 25 MG TAB PO SCH (20:40)
[2017-10-10] MEDS: ATORVASTATIN 40 MG TAB PO SCH (20:40)
[2017-10-10] MEDS: CARVEDILOL 12.5 MG TAB PO SCH (20:41)
[2017-10-11 07:43] LABS: Anisocytosis Slight; Basophils % (A) 0 %; Eosinophils # (A) 0.1 k/uL (0-0.7); Eosinophils % (A) 1 %; HCT 38.8 % (39.0-53.0); HGB 11.8 gm/dL (13.0-17.5); Hypochromasia Marked; Lymphocytes # (A) 0.6 k/uL (1.0-4.8); Lymphocytes % (A) 8 %; MCH 24.8 pg (25.0-35.0); MCHC 30.5 g/dL (31.0-37.0); MCV 81.3 fL (80.0-100.0); Mean Platelet Volume 10.2; Microcytosis Slight; Monocytes % (A) 16 %; Neutrophils # (A) 4.6 k/uL (1.3-7.7); Neutrophils % (A) 70 %; Platelet Count 112 k/uL (150-450); Poikilocytosis Slight; RBC 4.77 m/uL (4.30-5.90); RDW 18.1 % (11.5-15.5); WBC 6.6 k/uL (3.8-10.6)
[2017-10-11 07:54] LABS: Albumin 3.1 g/dL (3.5-5.0); Calcium 8.8 mg/dL (8.4-10.2); Potassium 3.2 mmol/L (3.5-5.1); Total Bilirubin 3.3 mg/dL (0.2-1.3); Total Protein 5.5 g/dL (6.3-8.2)
--- NOTE | 2017-10-11 08:43 | P.GSCN ---
History of Present Illness Consult date: 10/11/17 Reason for Consult: Urinary retention and scrotal edema History of present illness: The patient is a 72-year-old male admitted through the emergency room yesterday evening for evaluation of scrotal and leg edema and urinary retention. He originally was admitted on 10/06 due to congestive heart failure and peripheral edema and at that time reportedly had a BMP of 43,000. He was treated with furosemide and was discharged on 10/09. He apparently did continue to have edema involving the legs and scrotum and also began experiencing more difficulty voiding. When he presented to the emergency room he was unable to void and a bladder scan showed over 1000 mL. A 12-Arabic Steven catheter was inserted with some difficulty as it was impossible to directly visualized urethral meatus. The amount of urine that drained was not recorded. BUN/ creatinine yesterday evening or 26/1.24. BUN/creatinine this morning are 24/ 1.16. The patient says that he feels better and believes that his leg and genital edema has improved somewhat overnight. A scrotal ultrasound was obtained while the patient was in the emergency room due to the scrotal edema but there was no evidence of abscess or abnormality of the testicles are epididymitis. The patient has no previous history of urinary retention. He does have a history of bladder outflow obstruction which has been treated with tamsulosin and furosemide. He says that he sees Dr. Bowie annually and his next appointment is either later this month or in October. He says he usually voids every 1-2 hours during the day and 2 or 3 times at night. He describes a slow urinary flow but denies straining to void and usually feels he voids completely. He complains of urgency but denied urge incontinence. He has no previous history of gross hematuria or urinary tract infection. He has a history of urolithiasis which occurred over 30 years ago. 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 bypass 2-3 yrs ago, stents keisha legs, growth removed from jaw Past Anesthesia/Blood Transfusion Reactions: Motion Sickness Past Psychological History: No Psychological Hx Reported Smoking Status: Former smoker Past Alcohol Use History: None Reported Additional Past Alcohol Use History / Comment(s): quit smoking age 53, started smoking age 16, 1PPD Past Drug Use History: None Reported - Past Family History Mother Family Medical History: No Reported History Medications and Allergies Home Medications Medication Instructions Recorded Confirmed Type Aspirin [Adult Low Dose Aspirin EC] 81 mg PO DAILY 07/06/17 10/10/17 History Atorvastatin [Lipitor] 40 mg PO HS 07/06/17 10/10/17 History Carvedilol [Coreg*] 25 mg PO BID 07/06/17 10/10/17 History Famotidine 20 mg PO HS 07/06/17 10/10/17 History Finasteride [Proscar] 5 mg PO HS 07/06/17 10/10/17 History Losartan [Cozaar] 25 mg PO HS 07/06/17 10/10/17 History Tamsulosin [Flomax] 0.4 mg PO DAILY 07/06/17 10/10/17 History Ferrous Sulfate [Feosol] 325 mg PO BID #60 tab 10/09/17 10/10/17 Rx Furosemide [Lasix] 40 mg PO DAILY #30 tablet 10/09/17 10/10/17 Rx Allergies Allergy/AdvReac Type Severity Reaction Status Date / Time Sulfa (Sulfonamide Allergy Itching Verified 10/10/17 17:50 Antibiotics) Surgical - Exam Vital Signs Temp Pulse Resp BP Pulse Ox 98.2 F 63 18 107/69 94 L 10/10/17 12:31 10/10/17 12:31 10/10/17 12:31 10/10/17 12:31 10/10/17 12:31 - General well developed, well nourished, no distress - Respiratory normal respiratory effort - Abdomen Abdomen: soft, non tender, no organomegaly Hernia: none - Genitourinary other (The penis is uncircumcised. There appears to be a fissure at the tip of the foreskin which may have been related to trying to forcibly retracted the foreskin yesterday. There is moderate penile and scrotal edema. Testicles are nontender.) - Rectum Rectum: other (Prostate is 2+ enlarged and benign in consistency. No evidence of fecal impaction.) Results - Labs 10/11/17 07:08 10/11/17 07:08 Abnormal Lab Results - Last 24 Hours (Table) 10/10/17 10/10/17 10/10/17 Range/Units 13:36 13:36 13:36 Hgb (13.0-17.5) gm/dL Hct (39.0-53.0) % MCH 24.7 L (25.0-35.0) pg MCHC 30.2 L (31.0-37.0) g/dL RDW 18.0 H (11.5-15.5) % Plt Count 117 L (150-450) k/uL Lymphocytes # (Manual) 0.43 L (1.0-4.8) k/uL Monocytes # (Manual) 1.38 H (0-1.0) k/uL PT 12.5 H (9.0-12.0) sec INR 1.3 H (<1.2) Potassium 3.2 L (3.5-5.1) mmol/L BUN 26 H (9-20) mg/dL Total Bilirubin 3.9 H (0.2-1.3) mg/dL Total Protein 6.1 L (6.3-8.2) g/dL Albumin (3.5-5.0) g/dL 10/11/17 10/11/17 Range/Units 07:08 07:08 Hgb 11.8 L (13.0-17.5) gm/dL Hct 38.8 L (39.0-53.0) % MCH 24.8 L (25.0-35.0) pg MCHC 30.5 L (31.0-37.0) g/dL RDW 18.1 H (11.5-15.5) % Plt Count 112 L (150-450) k/uL Lymphocytes # (Manual) (1.0-4.8) k/uL Monocytes # (Manual) (0-1.0) k/uL PT (9.0-12.0) sec INR (<1.2) Potassium 3.2 L (3.5-5.1) mmol/L BUN 24 H (9-20) mg/dL Total Bilirubin 3.3 H (0.2-1.3) mg/dL Total Protein 5.5 L (6.3-8.2) g/dL Albumin 3.1 L (3.5-5.0) g/dL Microbiology - Last 24 Hours (Table) 10/10/17 17:40 Urine Culture - Preliminary Urine,Catheterized Diabetes panel 10/10/17 10/11/17 Range/Units 13:36 07:08 Sodium 142 143 (137-145) mmol/L Potassium 3.2 L 3.2 L (3.5-5.1) mmol/L Chloride 103 106 (98-107) mmol/L Carbon Dioxide 29 30 (22-30) mmol/L BUN 26 H 24 H (9-20) mg/dL Creatinine 1.24 1.16 (0.66-1.25) mg/dL Glucose 85 94 (74-99) mg/dL Calcium 9.0 8.8 (8.4-10.2) mg/dL AST 41 44 (17-59) U/L ALT 67 57 (21-72) U/L Alkaline Phosphatase 91 83 (38-126) U/L Total Protein 6.1 L 5.5 L (6.3-8.2) g/dL Albumin 3.5 3.1 L (3.5-5.0) g/dL Calcium panel 10/10/17 10/11/17 Range/Units 13:36 07:08 Calcium 9.0 8.8 (8.4-10.2) mg/dL Albumin 3.5 3.1 L (3.5-5.0) g/dL Pituitary panel 10/10/17 10/11/17 Range/Units 13:36 07:08 Sodium 142 143 (137-145) mmol/L Potassium 3.2 L 3.2 L (3.5-5.1) mmol/L Chloride 103 106 (98-107) mmol/L Carbon Dioxide 29 30 (22-30) mmol/L BUN 26 H 24 H (9-20) mg/dL Creatinine 1.24 1.16 (0.66-1.25) mg/dL Glucose 85 94 (74-99) mg/dL Calcium 9.0 8.8 (8.4-10.2) mg/dL Adrenal panel 10/10/17 10/11/17 Range/Units 13:36 07:08 Sodium 142 143 (137-145) mmol/L Potassium 3.2 L 3.2 L (3.5-5.1) mmol/L Chloride 103 106 (98-107) mmol/L Carbon Dioxide 29 30 (22-30) mmol/L BUN 26 H 24 H (9-20) mg/dL Creatinine 1.24 1.16 (0.66-1.25) mg/dL Glucose 85 94 (74-99) mg/dL Calcium 9.0 8.8 (8.4-10.2) mg/dL Total Bilirubin 3.9 H 3.3 H (0.2-1.3) mg/dL AST 41 44 (17-59) U/L ALT 67 57 (21-72) U/L Alkaline Phosphatase 91 83 (38-126) U/L Total Protein 6.1 L 5.5 L (6.3-8.2) g/dL Albumin 3.5 3.1 L (3.5-5.0) g/dL Assessment and Plan (1) Urinary retention Narrative/Plan: The patient's urinary retention may have actually started during his previous hospitalization when he was first started on furosemide. He has a history of bladder outflow obstruction which increases the likelihood of retaining urine which may have worsened during the rapid diuresis. Patient has a catheter in place at the present time and this will most likely be left in place for several days prior to a trial of voiding. Dr. Bowie has seen him in the past and we'll set this up. Current Visit: Yes Status: Acute Code(s): R33.9 - RETENTION OF URINE, UNSPECIFIED SNOMED Code(s): 980548328 (2) Scrotal swelling Narrative/Plan: The patient's scrotal swelling appears to be related to generalized edema related to congestive heart failure. This should resolve gradually with diuresis and control of the failure. Current Visit: Yes Status: Acute Code(s): N50.89 - OTHER SPECIFIED DISORDERS OF THE MALE GENITAL ORGANS SNOMED Code(s): 936197226
[2017-10-11] MEDS: CARVEDILOL 12.5 MG TAB PO SCH ×2 (10:03→20:04)
[2017-10-11] MEDS: FUROSEMIDE 40 MG TAB PO SCH (10:03)
[2017-10-11] MEDS: TAMSULOSIN 0.4 MG CAP.ER.24H PO SCH (10:03)
[2017-10-11] MEDS ORDERED: POTASSIUM CHLORIDE ER 20 MEQ TAB.ER PO STA (14:56)
--- NOTE | 2017-10-11 14:57 | P.HPIM ---
History of Present Illness H&P Date: 10/11/17 Kulwant Fernandes is a 72-year-old male who presented to [facility] emergency room yesterday evening for evaluation of scrotal and leg edema and urinary retention. Patient was evaluated in the emergency room and had evidence of urinary retention with a bladder scan showing more than 1000 mL in the bladder a Steven catheter was inserted in the emergency room with difficulty patient was admitted to medical floor and urology consultation was requested. A scrotal ultrasound was obtained while the patient was in the emergency room due to the scrotal edema but there was no evidence of abscess or abnormality of the testicles or epididymitis. Patient was recently admitted to [facility] for acute congestive heart failure exacerbation he was treated with IV Lasix and was discharged home on 10/09/2017 he started having worsening swelling in the lower extremities and in the scrotum and he subsequently was unable to urinate. Patient was seen and examined on 10/11/2017 on the medical floor he is feeling better he is alert and oriented 3 pain in the scrotal area has improved and swelling has improved patient has a Steven catheter and is draining well, he was evaluated by Dr. Hamilton urologist. 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 bypass 2-3 yrs ago, stents keisha legs, growth removed from jaw Past Anesthesia/Blood Transfusion Reactions: Motion Sickness Past Psychological History: No Psychological Hx Reported Smoking Status: Former smoker Past Alcohol Use History: None Reported Additional Past Alcohol Use History / Comment(s): quit smoking age 53, started smoking age 16, 1PPD Past Drug Use History: None Reported - Past Family History Mother Family Medical History: No Reported History Medications and Allergies Home Medications Medication Instructions Recorded Confirmed Type Aspirin [Adult Low Dose Aspirin EC] 81 mg PO DAILY 07/06/17 10/10/17 History Atorvastatin [Lipitor] 40 mg PO HS 07/06/17 10/10/17 History Carvedilol [Coreg*] 25 mg PO BID 07/06/17 10/10/17 History Famotidine 20 mg PO HS 07/06/17 10/10/17 History Finasteride [Proscar] 5 mg PO HS 07/06/17 10/10/17 History Losartan [Cozaar] 25 mg PO HS 07/06/17 10/10/17 History Tamsulosin [Flomax] 0.4 mg PO DAILY 07/06/17 10/10/17 History Ferrous Sulfate [Feosol] 325 mg PO BID #60 tab 10/09/17 10/10/17 Rx Furosemide [Lasix] 40 mg PO DAILY #30 tablet 10/09/17 10/10/17 Rx Allergies Allergy/AdvReac Type Severity Reaction Status Date / Time Sulfa (Sulfonamide Allergy Itching Verified 10/10/17 17:50 Antibiotics) Physical Exam Vitals: Vital Signs Temp Pulse Pulse Resp BP BP Pulse Ox 10/11/17 06:50 98.0 F 65 16 149/70 92 L 10/11/17 03:29 69 18 10/11/17 00:15 98.4 F 69 18 101/67 10/11/17 00:00 69 18 10/10/17 19:27 97.6 F 71 18 146/66 98 10/10/17 18:11 98.0 F 66 18 172/90 97 Intake and Output 10/10/17 10/11/17 10/11/17 22:59 06:59 14:59 Intake Total 240 Output Total 600 400 Balance -600 -400 240 Intake: Oral 240 Output: Urine 600 400 Other: Voiding Method Indwelling Catheter Indwelling Catheter Weight 85 kg In general patient is alert and oriented 3 in no apparent distress HEENT head normocephalic and atraumatic Neck is supple no JVD no goiter no lymphadenopathy Chest exam reveals a few scattered crackles no wheezing Cardiac exam reveals regular heart sounds S1 and S2 no gallops no murmurs Abdomen is soft nontender no organomegaly with normal bowel sounds, there is significant swelling in the scrotum with mild erythema Extremity exam reveals significant bilateral lower extremity edema there is no cyanosis or clubbing Results CBC & Chem 7: 10/11/17 07:08 10/11/17 07:08 Labs: Abnormal Lab Results - Last 24 Hours (Table) 10/11/17 10/11/17 Range/Units 07:08 07:08 Hgb 11.8 L (13.0-17.5) gm/dL Hct 38.8 L (39.0-53.0) % MCH 24.8 L (25.0-35.0) pg MCHC 30.5 L (31.0-37.0) g/dL RDW 18.1 H (11.5-15.5) % Plt Count 112 L (150-450) k/uL Lymphocytes # 0.6 L (1.0-4.8) k/uL Potassium 3.2 L (3.5-5.1) mmol/L BUN 24 H (9-20) mg/dL Total Bilirubin 3.3 H (0.2-1.3) mg/dL Total Protein 5.5 L (6.3-8.2) g/dL Albumin 3.1 L (3.5-5.0) g/dL Microbiology - Last 24 Hours (Table) 10/10/17 17:40 Urine Culture - Preliminary Urine,Catheterized Thrombosis Risk Factor Assmnt - Choose All That Apply Any of the Below Risk Factors Present?: Yes Each Factor Represents 1 point: Obesity (BMI >25) Other Risk Factors: Yes Each Risk Factor Represents 2 Points: Age 61-74 years Other congenital or acquired thrombophilia - If yes, enter type in comment: No Thrombosis Risk Factor Assessment Total Risk Factor Score: 3 Thrombosis Risk Factor Assessment Level: Moderate Risk Assessment and Plan Plan: #1 urinary retention, currently patient has a Steven catheter and urology are following #2 scrotal edema, improving most likely related to passive congestion due to congestive heart failure also albumin is somewhat low at 3.1 #3 hypokalemia potassium 3.2 Will replace #4 underlying history of chronic congestive heart failure, there is no evidence of acute exacerbation at this time #5 underlying history of coronary artery disease with history of coronary artery bypass graft surgery 3 years ago #6 underlying history of cardiomyopathy patient has an AICD #7 anemia hemoglobin 11.8 will continue with iron supplements Will follow closely during this admission, will add IV Rocephin due to scrotal erythema and possible cellulitis Will recheck labs and follow in a.m.
[2017-10-11] MEDS: cefTRIAXone IN SWFI 1,000 MG/10 ML SYRINGE IVP SCH (17:42)
[2017-10-11] MEDS: ATORVASTATIN 40 MG TAB PO SCH (20:03)
[2017-10-11] MEDS: LOSARTAN 25 MG TAB PO SCH (20:04)
[2017-10-12 07:51] LABS: Calcium 8.5 mg/dL (8.4-10.2); Total Bilirubin 2.6 mg/dL (0.2-1.3); Total Protein 5.4 g/dL (6.3-8.2)
[2017-10-12 07:53] LABS: Anisocytosis Slight; Basophils % (A) 0 %; Eosinophils # (A) 0.1 k/uL (0-0.7); Eosinophils % (A) 1 %; HCT 38.9 % (39.0-53.0); HGB 11.9 gm/dL (13.0-17.5); Hypochromasia Marked; Lymphocytes # (A) 0.7 k/uL (1.0-4.8); Lymphocytes % (A) 10 %; MCH 25.2 pg (25.0-35.0); MCHC 30.6 g/dL (31.0-37.0); MCV 82.5 fL (80.0-100.0); Monocytes % (A) 14 %; Neutrophils % (A) 72 %; Platelet Count 103 k/uL (150-450); Poikilocytosis Slight; RBC 4.72 m/uL (4.30-5.90); RDW 18.2 % (11.5-15.5); WBC 6.9 k/uL (3.8-10.6)
[2017-10-12] MEDS ORDERED: POTASSIUM CHLORIDE ER 20 MEQ TAB.ER PO STA (08:28)
[2017-10-12] MEDS: TAMSULOSIN 0.4 MG CAP.ER.24H PO SCH (09:14)
[2017-10-12] MEDS: FUROSEMIDE 40 MG TAB PO SCH (09:14)
[2017-10-12] MEDS: CARVEDILOL 12.5 MG TAB PO SCH ×3 (09:15→20:30)
[2017-10-12] MEDS: cefTRIAXone IN SWFI 1,000 MG/10 ML SYRINGE IVP SCH (10:03)
[2017-10-12] MEDS ORDERED: MAGNESIUM SULFATE-D5W PMX 1 GM in DEXTROSE/WATER 1 100ML.BAG IVPB ONE (10:51)
--- NOTE | 2017-10-12 11:05 | P.PN ---
Subjective Progress Note Date: 10/12/17 Kulwant Fernandes is a 72-year-old male who presented to [facility] emergency room yesterday evening for evaluation of scrotal and leg edema and urinary retention. Patient was evaluated in the emergency room and had evidence of urinary retention with a bladder scan showing more than 1000 mL in the bladder a Steven catheter was inserted in the emergency room with difficulty patient was admitted to medical floor and urology consultation was requested. A scrotal ultrasound was obtained while the patient was in the emergency room due to the scrotal edema but there was no evidence of abscess or abnormality of the testicles or epididymitis. Patient was recently admitted to [facility] for acute congestive heart failure exacerbation he was treated with IV Lasix and was discharged home on 10/09/2017 he started having worsening swelling in the lower extremities and in the scrotum and he subsequently was unable to urinate. Patient was seen and examined on 10/11/2017 on the medical floor he is feeling better he is alert and oriented 3 pain in the scrotal area has improved and swelling has improved patient has a Steven catheter and is draining well, he was evaluated by Dr. Hamilton urologist. 10/12/2017 patient is still having lower extremity edema and scrotal swelling. This is likely related to fluid overload. Patient is currently on Lasix 40 mg by mouth daily. Patient does report some improvement in his swelling. Denies any shortness of breath. Has been up and ambulating. Denies any chest pain. Denies any nausea or vomiting. Has Steven catheter in place. Is followed by urology. Urinalysis is negative. Nursing staff concerned about patient's heart rate reported that heart rate had been in Brown 58-60. Parameters to hold Coreg if heart rate is less than 55. Also in the reported an irregular heartbeat. EKG completed showing a heart rate of 60 6H paced with occasional PVCs and a possible inferior and anterior lateral infarct age undetermined. At this time patient denies any chest pain. Cardiology will be consulted in regards to patient's congestive heart failure. Objective - Vital Signs Vital signs: Vital Signs Temp 98.4 F 10/12/17 07:17 Pulse 56 L 10/12/17 09:15 Resp 16 10/12/17 07:17 BP 166/74 10/12/17 07:17 Pulse Ox 95 10/12/17 07:17 Intake & Output 10/11/17 10/12/17 10/12/17 18:59 06:59 18:59 Intake Total 340 240 240 Output Total 1700 Balance -1360 240 240 Weight 85 kg Intake: Oral 340 240 240 Output: Urine 1700 Uretheral (Steven) 1700 Other: Voiding Method Indwelling Catheter Indwelling Catheter Indwelling Catheter - Exam Head normocephalic Neck supple Lungs clear to auscultation bilaterally no wheezing or crackles Heart regular rate and rhythm S1-S2, no rub or gallop Abdomen is soft nontender nondistended positive bowel sounds no hepatosplenomegaly Extremities 2+ lower extremity edema Neuro alert and orientated to 3 - Labs CBC & Chem 7: 10/12/17 06:05 10/12/17 06:05 Labs: Abnormal Lab Results - Last 24 Hours (Table) 10/12/17 10/12/17 Range/Units 06:05 06:05 Hgb 11.9 L (13.0-17.5) gm/dL Hct 38.9 L (39.0-53.0) % MCHC 30.6 L (31.0-37.0) g/dL RDW 18.2 H (11.5-15.5) % Plt Count 103 L (150-450) k/uL Lymphocytes # 0.7 L (1.0-4.8) k/uL Potassium 3.0 L* (3.5-5.1) mmol/L BUN 21 H (9-20) mg/dL Total Bilirubin 2.6 H (0.2-1.3) mg/dL Total Protein 5.4 L (6.3-8.2) g/dL Albumin 3.0 L (3.5-5.0) g/dL Microbiology - Last 24 Hours (Table) 10/10/17 17:40 Urine Culture - Final Urine,Catheterized Assessment and Plan Assessment: #1 urinary retention: Continue Steven catheter for several days prior to voiding trial. Patient followed closely by urology. Urinary retention likely secondary to history of bladder outflow obstruction and diuresis #2 scrotal edema, improving most likely related to passive congestion due to congestive heart failure also albumin is somewhat low at 3.1 #3 hypokalemia : Potassium supplement given. Also will start a daily K-Dur 20 milliequivalents. Hypomagnesemia replaced magnesium. Recheck magnesium in a.m. #4 underlying history of chronic congestive heart failure, there is no evidence of acute exacerbation at this time #5 underlying history of coronary artery disease with history of coronary artery bypass graft surgery 3 years ago #6 underlying history of cardiomyopathy patient has an AICD #7 iron deficiency anemia hemoglobin 11.8 will continue with iron supplements #8 scrotal erythema and possible cellulitis patient continue Rocephin #9 thrombocytopenia: Continue to monitor closely. #10 acute on chronic systolic CHF exacerbation. Patient currently receiving Lasix 40 mg daily. Still having evidence of lower extremity edema. Cardiology will be consulted. Check a 2-D echo. #11 consult PT OT and Dr. Suárez for possible inpatient rehab DVT prophylaxis SCDs and GI prophylaxis Pepcid I performed an examination of the patient and discussed their management with the physician Fire Alarm Installer. I have reviewed the Physician Fire Alarm Installer's notes and agree with the documented findings and plan of care
[2017-10-12] MEDS: ASPIRIN 81 MG PO SCH (14:40)
--- NOTE | 2017-10-12 15:00 | P.CONS ---
History of Present Illness - Chief Complaint Medical debility - History of Present Illness I had the opportunity see patient for inpatient rehab consultation with regard to medical debility. He was admitted to [facility] October 10 with generalized weakness. Many diagnoses x-ray scrotal edema and urinary retention for which she was seen by Dr. Elaine ch and a scrotal ultrasound was done which demonstrated bilateral hydroceles and right epididymal cyst. Chest x-ray demonstrates only cardiomegaly. PT reports supervision to modified independent with bed mobility and supervision for gait 110 feet with roller walker. OT prescribed. Previous functional history as elicited from patient: 72-year-old right-handed white male who is a and lives and 2 floor home with basement, alone. 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 Independent with his own cooking, laundry, driving, standing shower. Doesn't own a car. History smoking remote past doesn't smoke or drink currently. Dr. Emilee Wright is regular doctor. Family history mother with smoker and alcohol history father with prostate cancer. Review of Systems Review of systems: ENT: Denies sneezes or discharge. Eyes: Denies discharge or photophobia. Cardiac: Denies chest pain or palpitation. Pulmonary: Denies cough or shortness of breath. Gastrointestinal: Denies nausea, emesis, constipation, diarrhea. Genitourinary: Denies discharge or frequency. Appears unaware of history of recent scrotal edema. Musculoskeletal: Denies muscle or bone aches. Neurologic: Generalized weakness. Endocrine: Denies shakes or sweats. Oncology: Denies cancers. Dermatologic: Denies rash, itching, pruritus. ALLERGY/immunology: Denies sneezes, rashes. 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 bypass 2-3 yrs ago, stents keisha legs, growth removed from jaw Past Anesthesia/Blood Transfusion Reactions: Motion Sickness Past Psychological History: No Psychological Hx Reported Smoking Status: Former smoker Past Alcohol Use History: None Reported Additional Past Alcohol Use History / Comment(s): quit smoking age 53, started smoking age 16, 1PPD Past Drug Use History: None Reported - Past Family History Mother Family Medical History: No Reported History Medications and Allergies Home Medications Medication Instructions Recorded Confirmed Type Aspirin [Adult Low Dose Aspirin EC] 81 mg PO DAILY 07/06/17 10/10/17 History Atorvastatin [Lipitor] 40 mg PO HS 07/06/17 10/10/17 History Carvedilol [Coreg*] 25 mg PO BID 07/06/17 10/10/17 History Famotidine 20 mg PO HS 07/06/17 10/10/17 History Finasteride [Proscar] 5 mg PO HS 07/06/17 10/10/17 History Losartan [Cozaar] 25 mg PO HS 07/06/17 10/10/17 History Tamsulosin [Flomax] 0.4 mg PO DAILY 07/06/17 10/10/17 History Ferrous Sulfate [Feosol] 325 mg PO BID #60 tab 10/09/17 10/10/17 Rx Furosemide [Lasix] 40 mg PO DAILY #30 tablet 10/09/17 10/10/17 Rx Allergies Allergy/AdvReac Type Severity Reaction Status Date / Time Sulfa (Sulfonamide Allergy Itching Verified 10/10/17 17:50 Antibiotics) Physical Exam Vitals: Vital Signs Temp Pulse Resp BP Pulse Ox 10/12/17 09:15 56 L 10/12/17 07:17 98.4 F 65 16 166/74 95 10/12/17 03:09 59 L 16 10/12/17 00:15 98.5 F 59 L 16 144/67 94 L 10/12/17 00:00 64 18 10/11/17 20:00 64 18 10/11/17 19:19 99 F 64 18 153/68 94 L Intake and Output 10/11/17 10/12/17 10/12/17 22:59 06:59 14:59 Intake Total 240 540 Output Total 1700 Balance -1460 540 Intake: Oral 240 540 Output: Urine 1700 Uretheral (Steven) 1700 Other: Voiding Method Indwelling Catheter Indwelling Catheter Indwelling Catheter Weight 85 kg Skin: Good color, texture, turgor. General: Overweight build and comfortable appearance. Head: Normocephalic, atraumatic. Eyes: Symmetric. Pupils equal round. Ears: Symmetric. Hearing within normal limits. Mouth: Clear. Neck: Supple. Carotid without bruit. Cardiac: Regular rate and rhythm. Lungs: Clear anteriorly and posteriorly. Abdomen: Soft active nontender. Extremities: Normal tone. Neurological: Mental status: Alert, cooperative, pleasant. Cranial nerves: Symmetric facial tone and trapezius. Motor: Active movement all 4 limbs. Sensation: Intact throughout. DTRs: Symmetric and equal throughout. Mobility: Reports required to nurse is to transfer from bed to Paty chair. Results CBC & Chem 7: 10/12/17 06:05 10/12/17 06:05 Labs: Abnormal Lab Results - Last 24 Hours (Table) 10/12/17 10/12/17 Range/Units 06:05 06:05 Hgb 11.9 L (13.0-17.5) gm/dL Hct 38.9 L (39.0-53.0) % MCHC 30.6 L (31.0-37.0) g/dL RDW 18.2 H (11.5-15.5) % Plt Count 103 L (150-450) k/uL Lymphocytes # 0.7 L (1.0-4.8) k/uL Potassium 3.0 L* (3.5-5.1) mmol/L BUN 21 H (9-20) mg/dL Total Bilirubin 2.6 H (0.2-1.3) mg/dL Total Protein 5.4 L (6.3-8.2) g/dL Albumin 3.0 L (3.5-5.0) g/dL Microbiology - Last 24 Hours (Table) 10/10/17 17:40 Urine Culture - Final Urine,Catheterized Assessment and Plan (1) Scrotal swelling Current Visit: Yes Status: Acute Code(s): N50.89 - OTHER SPECIFIED DISORDERS OF THE MALE GENITAL ORGANS SNOMED Code(s): 708563287 (2) Urinary retention Current Visit: Yes Status: Acute Code(s): R33.9 - RETENTION OF URINE, UNSPECIFIED SNOMED Code(s): 410738739 Plan: Impression: 1. Medical debility. 2. Urinary retention. 3. Scrotal edema. 4. CHF. 5. Sleep apnea. 6. History of stroke. 7. Dyslipidemia. 8. Renal disease. Comments and plan: At this time PT ongoing and OT prescribed. Follow therapies with yourself. Unsure of supports for discharge or return to home and must review.
[2017-10-12] MEDS: FERROUS SULFATE 325 MG TAB PO SCH (20:30)
[2017-10-12] MEDS: FINASTERIDE 5 MG TAB PO SCH (20:30)
[2017-10-12] MEDS: LOSARTAN 25 MG TAB PO SCH (20:30)
[2017-10-12] MEDS: FUROSEMIDE 10 MG/ML 4 ML VIAL IV SCH (20:31)
[2017-10-12] MEDS: ATORVASTATIN 40 MG TAB PO SCH (20:31)
[2017-10-12] MEDS: FAMOTIDINE 20 MG TAB PO SCH (20:31)
--- NOTE | 2017-10-13 07:16 | CONS ---
CONSULTATION DATE OF SERVICE: 10/12/2017 REASON FOR CONSULTATION: Fluid retention. HISTORY OF PRESENT ILLNESS: This is a pleasant 72-year-old gentleman who sees Dr. Castillo in the office on a regular basis with a past medical history significant for coronary artery disease and status post coronary artery bypass grafting in 2012, severe ischemic cardiomyopathy with a recent echocardiogram from September of 2017 showing an EF between 30% to 35%, chronic systolic congestive heart failure, hypertension, chronic kidney disease, as well as status post AICD, presented to the hospital complaining of bilateral lower extremities edema as well as scrotal edema. The patient just was discharged from the hospital last week after he presented with generalized weakness and fatigue. At that point, the patient was diagnosed with congestive heart failure and he was started on Lasix IV for 24 hours and he was discharged home in stable medical condition in the next few days after. We did interrogate the AICD and it was functioning normally. At this time the patient presented to the emergency room complaining of edema in the lower extremities as well as scrotal edema. The patient was not urinating. When he presented to the emergency room, he did have a bladder scan which showed about 1 L in fluid and at that point, a Steven catheter was placed and the patient felt better significantly after that. The scrotal edema has improved as well as the bilateral lower extremities edema. The patient was receiving Lasix p.o. as an outpatient. Urology was consulted to see the patient as well. The patient did not have any symptoms of chest pain or chest discomfort. He continues to have exertional dyspnea, seems to be unchanged compared to before. No dizziness or lightheadedness and no syncope. The chest x-ray when the patient presented to the hospital showed cardiomegaly without any acute pulmonary process. The BNP was checked and came into be severely elevated and during this admission, the BNP came in to be around . The kidney function continues to be stable. PAST MEDICAL HISTORY: Past medical history includes: 1. Coronary artery disease and status post CABG. 2. Severe ischemic cardiomyopathy. 3. Status post AICD. 4. Chronic systolic congestive heart failure. 5. Multiple comorbid conditions. PAST SURGICAL HISTORY: Past surgical history includes: 1. CABG. 2. Multiple heart catheterizations. 3. Hernia repair. 4. Tonsillectomy. SOCIAL HISTORY: The patient used to smoke but currently is not a smoker. MEDICATIONS: Medications include: 1. Aspirin 81 mg p.o. daily. 2. Atorvastatin 40 mg p.o. at bedtime. 3. Ceftriaxone 1 gram daily. 4. Coreg 25 mg p.o. b.i.d. 5. Pepcid 20 mg daily. 6. Ferrous sulfate 325 mg b.i.d. 7. Finasteride 5 mg p.o. at bedtime. 8. Lasix 20 mg p.o. daily. 9. Losartan 25 mg p.o. daily. 10.Magnesium sulfate. 11.Flomax 0.4 mg p.o. daily. 12.Zofran 4 mg IV q.8 hours. PHYSICAL EXAMINATION: GENERAL APPEARANCE: The patient was sitting in the chair and does not look in any pain or distress. Vitals showed temp of 97.8, heart rate 60, respiratory rate 18, pressure is 123/68 mmHg. Cardiovascular examination shows normal S1 and S2 with a systolic murmur. Respiratory examination showed clear breathing sounds bilaterally. Extremity examination showed very mild pedal edema noted. DIAGNOSTIC WORKUP: The WBC 6.9, hemoglobin 11.9, platelet count of 103,000. INR is 1.3. Sodium 142, potassium 3.0, creatinine is 1.10. BNP came into be out . ASSESSMENT: 1. Urinary retention. The patient is in process to be seen by the urology service. 2. Fluid retention secondary to the above. 3. Electrolyte imbalance with hypokalemia. The patient is receiving potassium. 4. Severe underlying coronary artery disease, seems to be stable. 5. Severe ischemic cardiomyopathy with a known ejection fraction around 35%. 6. Status post AICD placement. PLAN: 1. The patient overall is feeling better. The edema in the scrotum as well as in the legs are improved. 2. I am going to discontinue Lasix p.o. and start the patient on Lasix IV to diurese him more. 3. Monitor the kidney function and electrolytes and replace potassium if we need to. 4. The patient underwent an echocardiogram recently and that showed severe cardiomyopathy. No reason to repeat the echo on him at this point. 5. Continue following up with him. Thank you for allowing us to participate in his care and we will continue following up with the patient. MMODL / IJN: [id number] /
[2017-10-13 07:35] LABS: Albumin 3.2 g/dL (3.5-5.0); Calcium 8.6 mg/dL (8.4-10.2); Magnesium 1.7 mg/dL (1.6-2.3); Potassium 3.3 mmol/L (3.5-5.1); Total Bilirubin 2.4 mg/dL (0.2-1.3); Total Protein 5.6 g/dL (6.3-8.2)
[2017-10-13 07:48] LABS: Anisocytosis Slight; Basophils % (A) 0 %; Eosinophils # (A) 0.1 k/uL (0-0.7); Eosinophils % (A) 2 %; HCT 40.5 % (39.0-53.0); HGB 12.2 gm/dL (13.0-17.5); Hypochromasia Marked; Lymphocytes # (A) 0.8 k/uL (1.0-4.8); Lymphocytes % (A) 10 %; MCH 24.8 pg (25.0-35.0); MCHC 30.2 g/dL (31.0-37.0); Monocytes # (A) 1.1 k/uL (0-1.0); Monocytes % (A) 15 %; Neutrophils # (A) 5.5 k/uL (1.3-7.7); Neutrophils % (A) 71 %; Platelet Count 110 k/uL (150-450); Poikilocytosis Slight; RBC 4.93 m/uL (4.30-5.90); RDW 18.2 % (11.5-15.5); WBC 7.8 k/uL (3.8-10.6)
[2017-10-13] MEDS: CARVEDILOL 12.5 MG TAB PO SCH ×2 (08:05→20:49)
[2017-10-13] MEDS: FERROUS SULFATE 325 MG TAB PO SCH ×2 (08:05→20:48)
[2017-10-13] MEDS: cefTRIAXone IN SWFI 1,000 MG/10 ML SYRINGE IVP SCH (08:05)
[2017-10-13] MEDS: ASPIRIN 81 MG PO SCH (08:05)
[2017-10-13] MEDS: FUROSEMIDE 10 MG/ML 4 ML VIAL IV SCH ×2 (08:06→20:49)
[2017-10-13] MEDS: TAMSULOSIN 0.4 MG CAP.ER.24H PO SCH (08:06)
[2017-10-13] MEDS: POTASSIUM CHLORIDE ER 20 MEQ TAB.ER PO SCH (08:06)
[2017-10-13] MEDS ORDERED: POTASSIUM CHLORIDE ER 20 MEQ TAB.ER PO STA (09:38)
--- NOTE | 2017-10-13 10:26 | P.PN ---
Subjective Progress Note Date: 10/13/17 Principal diagnosis: CHF secondary to systolic dysfunction This is a pleasant 72-year-old gentleman with CAD and status post CABG in 2012, severe ischemic cardiomyopathy with EF of 30-35%, status post AICD, as well as multiple comorbid conditions was admitted to the hospital was congestive heart failure secondary to systolic dysfunction as well as urine retention. On follow-up with the patient today, overall he is feeling slightly better. He still have bilateral lower extremities edema but seems to be better in general. He continues to be on Lasix IV. The kidney function continues to be within normal limits. The weight did not change significantly. The patient is on Lasix IV at 40 mg twice a day. Objective - Vital Signs Vital signs: Vital Signs Temp 97.6 F 10/13/17 07:00 Pulse 59 L 10/13/17 07:00 Resp 17 10/13/17 07:00 BP 165/91 10/13/17 07:00 Pulse Ox 93 L 10/13/17 07:00 Intake & Output 10/12/17 10/13/17 10/13/17 18:59 06:59 18:59 Intake Total 540 100 Output Total 1100 3350 Balance -560 -3250 Weight 85 kg Intake: Oral 540 Other 100 Output: Urine 1100 3350 Uretheral (Steven) 1100 Other: Voiding Method Indwelling Catheter Indwelling Catheter Indwelling Catheter - Constitutional General appearance: Present: no acute distress - Respiratory Respiratory: bilateral: diminished - Cardiovascular Rhythm: regular Heart sounds: normal: S1, S2 - Labs CBC & Chem 7: 10/13/17 06:56 10/13/17 06:56 Labs: Abnormal Lab Results - Last 24 Hours (Table) 10/13/17 10/13/17 Range/Units 06:56 06:56 Hgb 12.2 L (13.0-17.5) gm/dL MCH 24.8 L (25.0-35.0) pg MCHC 30.2 L (31.0-37.0) g/dL RDW 18.2 H (11.5-15.5) % Plt Count 110 L (150-450) k/uL Lymphocytes # 0.8 L (1.0-4.8) k/uL Monocytes # 1.1 H (0-1.0) k/uL Potassium 3.3 L (3.5-5.1) mmol/L Carbon Dioxide 35 H (22-30) mmol/L BUN 22 H (9-20) mg/dL Total Bilirubin 2.4 H (0.2-1.3) mg/dL Total Protein 5.6 L (6.3-8.2) g/dL Albumin 3.2 L (3.5-5.0) g/dL Assessment and Plan Assessment: Assessment #1 urinary retention and the patient currently has a 40 catheter #2 congestive heart failure secondary to systolic dysfunction #3 electrolytes imbalance #4 severe CAD and status post CABG #5 severe ischemic cardiomyopathy and status post AICD Plan #1 continue the IV Lasix for additional 24 hours #2 continue monitor the kidney function and electrolytes #3 the patient is in process to be seen by the neurology service We'll continue following up with him
--- NOTE | 2017-10-13 11:19 | P.PN ---
Subjective Progress Note Date: 10/13/17 Kulwant Fernandes is a 72-year-old male who presented to [facility] emergency room yesterday evening for evaluation of scrotal and leg edema and urinary retention. Patient was evaluated in the emergency room and had evidence of urinary retention with a bladder scan showing more than 1000 mL in the bladder a Steven catheter was inserted in the emergency room with difficulty patient was admitted to medical floor and urology consultation was requested. A scrotal ultrasound was obtained while the patient was in the emergency room due to the scrotal edema but there was no evidence of abscess or abnormality of the testicles or epididymitis. Patient was recently admitted to [facility] for acute congestive heart failure exacerbation he was treated with IV Lasix and was discharged home on 10/09/2017 he started having worsening swelling in the lower extremities and in the scrotum and he subsequently was unable to urinate. Patient was seen and examined on 10/11/2017 on the medical floor he is feeling better he is alert and oriented 3 pain in the scrotal area has improved and swelling has improved patient has a Steven catheter and is draining well, he was evaluated by Dr. Hamilton urologist. 10/12/2017 patient is still having lower extremity edema and scrotal swelling. This is likely related to fluid overload. Patient is currently on Lasix 40 mg by mouth daily. Patient does report some improvement in his swelling. Denies any shortness of breath. Has been up and ambulating. Denies any chest pain. Denies any nausea or vomiting. Has Steven catheter in place. Is followed by urology. Urinalysis is negative. Nursing staff concerned about patient's heart rate reported that heart rate had been in Brown 58-60. Parameters to hold Coreg if heart rate is less than 55. Also in the reported an irregular heartbeat. EKG completed showing a heart rate of 60 6H paced with occasional PVCs and a possible inferior and anterior lateral infarct age undetermined. At this time patient denies any chest pain. Cardiology will be consulted in regards to patient's congestive heart failure. 10/13/2017 patient seen by retail aide yesterday and was started on IV Lasix. His weight is state about the same. There is slight decrease in the lower extremity swelling. Denies any chest pain or shortness of breath. Complaining that he was unable to sleep melatonin has been added. Creatinine is at 1.25. Potassium low at 3.3 magnesium 1.7 he is receiving supplement. He has not had a bowel movement in 3 days Colace added Objective - Vital Signs Vital signs: Vital Signs Temp 97.6 F 10/13/17 07:00 Pulse 59 L 10/13/17 07:00 Resp 17 10/13/17 07:00 BP 165/91 10/13/17 07:00 Pulse Ox 93 L 10/13/17 07:00 Intake & Output 10/12/17 10/13/17 10/13/17 18:59 06:59 18:59 Intake Total 540 100 Output Total 1100 3350 Balance -560 -3250 Weight 85 kg Intake: Oral 540 Other 100 Output: Urine 1100 3350 Uretheral (Steven) 1100 Other: Voiding Method Indwelling Catheter Indwelling Catheter Indwelling Catheter - Exam Head normocephalic Neck supple Lungs clear to auscultation bilaterally no wheezing or crackles Heart regular rate and rhythm S1-S2, no rub or gallop Abdomen is soft nontender nondistended positive bowel sounds no hepatosplenomegaly Extremities 2+ lower extremity edema scrotal edema Neuro alert and orientated to 3 - Labs CBC & Chem 7: 10/13/17 06:56 10/13/17 06:56 Labs: Abnormal Lab Results - Last 24 Hours (Table) 10/13/17 10/13/17 Range/Units 06:56 06:56 Hgb 12.2 L (13.0-17.5) gm/dL MCH 24.8 L (25.0-35.0) pg MCHC 30.2 L (31.0-37.0) g/dL RDW 18.2 H (11.5-15.5) % Plt Count 110 L (150-450) k/uL Lymphocytes # 0.8 L (1.0-4.8) k/uL Monocytes # 1.1 H (0-1.0) k/uL Potassium 3.3 L (3.5-5.1) mmol/L Carbon Dioxide 35 H (22-30) mmol/L BUN 22 H (9-20) mg/dL Total Bilirubin 2.4 H (0.2-1.3) mg/dL Total Protein 5.6 L (6.3-8.2) g/dL Albumin 3.2 L (3.5-5.0) g/dL Assessment and Plan Assessment: #1 urinary retention: Continue Steven catheter for several days prior to voiding trial. Patient followed closely by urology. Urinary retention likely secondary to history of bladder outflow obstruction and diuresis #2 scrotal edema, improving most likely related to passive congestion due to congestive heart failure also albumin is somewhat low at 3.1 #3 hypokalemia : Potassium supplement given. Also will start a daily K-Dur 20 milliequivalents. Hypomagnesemia replaced magnesium. Recheck magnesium in a.m. #4 acute on chronic systolic congestive heart failure exacerbation. Patient's by cardiology. Started her on IV Lasix 40 mg every 12 hours #5 underlying history of coronary artery disease with history of coronary artery bypass graft surgery 3 years ago #6 underlying history of cardiomyopathy patient has an AICD #7 iron deficiency anemia hemoglobin 11.8 will continue with iron supplements #8 scrotal erythema and possible cellulitis patient continue Rocephin #9 thrombocytopenia: Continue to monitor closely. Platelets are up to 110 #10 consult PT OT and Dr. Suárez for possible inpatient rehab #11 constipation had Colace #12 insomnia add melatonin DVT prophylaxis SCDs and GI prophylaxis Pepcid I performed an examination of the patient and discussed their management with the physician Nurses Superintendent. I have reviewed the Physician Nurses Superintendent's notes and agree with the documented findings and plan of care
[2017-10-13] MEDS: DOCUSATE 100 MG CAP PO SCH ×2 (12:01→20:49)
[2017-10-13] MEDS: FAMOTIDINE 20 MG TAB PO SCH (20:48)
[2017-10-13] MEDS: FINASTERIDE 5 MG TAB PO SCH (20:49)
[2017-10-13] MEDS: LOSARTAN 25 MG TAB PO SCH (20:50)
[2017-10-13] MEDS: ATORVASTATIN 40 MG TAB PO SCH (20:54)
[2017-10-13] MEDS: MELATONIN 1 MG TAB PO SCH (20:54)
[2017-10-14 07:10] LABS: Anisocytosis Slight; Basophils % (A) 0 %; Eosinophils # (A) 0.2 k/uL (0-0.7); Eosinophils % (A) 3 %; HCT 39.5 % (39.0-53.0); HGB 12.2 gm/dL (13.0-17.5); Hypochromasia Marked; Lymphocytes # (A) 0.7 k/uL (1.0-4.8); Lymphocytes % (A) 11 %; MCH 24.9 pg (25.0-35.0); MCHC 30.9 g/dL (31.0-37.0); MCV 80.8 fL (80.0-100.0); Mean Platelet Volume 10.5; Microcytosis Slight; Monocytes % (A) 15 %; Neutrophils # (A) 4.4 k/uL (1.3-7.7); Neutrophils % (A) 69 %; Platelet Count 128 k/uL (150-450); Poikilocytosis Slight; RBC 4.89 m/uL (4.30-5.90); RDW 18.2 % (11.5-15.5); WBC 6.5 k/uL (3.8-10.6)
[2017-10-14 07:28] LABS: Target Cells Present
[2017-10-14 07:31] LABS: Calcium 8.5 mg/dL (8.4-10.2); Magnesium 1.7 mg/dL (1.6-2.3); Potassium 3.2 mmol/L (3.5-5.1); Total Bilirubin 2.2 mg/dL (0.2-1.3); Total Protein 5.4 g/dL (6.3-8.2)
[2017-10-14] MEDS: cefTRIAXone IN SWFI 1,000 MG/10 ML SYRINGE IVP SCH (08:45)
[2017-10-14] MEDS: POTASSIUM CHLORIDE ER 20 MEQ TAB.ER PO SCH ×3 (08:45→14:27)
[2017-10-14] MEDS: DOCUSATE 100 MG CAP PO SCH ×2 (08:45→20:51)
[2017-10-14] MEDS: ASPIRIN 81 MG PO SCH (08:45)
[2017-10-14] MEDS: TAMSULOSIN 0.4 MG CAP.ER.24H PO SCH (08:45)
[2017-10-14] MEDS: FUROSEMIDE 10 MG/ML 4 ML VIAL IV SCH ×2 (08:45→20:52)
[2017-10-14] MEDS: FERROUS SULFATE 325 MG TAB PO SCH ×2 (08:45→20:52)
[2017-10-14] MEDS: CARVEDILOL 12.5 MG TAB PO SCH ×2 (08:45→20:52)
[2017-10-14] MEDS ORDERED: Potassium Replacement Protocol 1 EACH MISC MISCELLANE PRN (11:03)
--- NOTE | 2017-10-14 12:16 | P.PN ---
Subjective Mr. Fernandes is seen and examined sitting up in bed in no acute distress. Past medical history significant for coronary artery disease status post bypass grafting 2012, severe ischemic cardiomyopathy with EF 30-35%, status post AICD and dyslipidemia. He is currently maintained on lasix 40 mg IV BID. He is diuresing nicely with negative fluid balance of 5600 cc for previous 24 hours. Laboratory data reviewed, hemoglobin 12.2, platelets 128, sodium 141, potassium 3.2, creatinine 1.12, magnesium 1.7. Blood pressure 126/56 heart rate 62 afebrile maintaining oxygen saturation on room air. He denies symptoms of chest pain, shortness of breath, dizziness, palpitations, nausea, vomiting or diaphoresis. Objective - Vital Signs Vital signs: Vital Signs Temp 98.1 F 10/14/17 09:01 Pulse 62 10/14/17 09:01 Resp 18 10/14/17 09:01 BP 126/56 10/14/17 09:01 Pulse Ox 92 L 10/14/17 09:01 Intake & Output 10/13/17 10/14/17 10/14/17 18:59 06:59 18:59 Intake Total 100 Output Total 2700 3000 Balance -2700 -2900 Weight 85 kg Intake: Oral 100 Output: Urine 2700 3000 Other: Voiding Method Indwelling Catheter Indwelling Catheter - Exam GENERAL: Well-appearing, well-nourished and in no acute distress. NECK: Supple without JVD or thyromegaly. LUNGS: Breath sounds clear to auscultation bilaterally. Respiration equal and unlabored. No wheezes, rales or rhonchi. Diminished bilaterally. HEART: Regular rate and rhythm without murmurs, rubs or gallops. S1 and S2 heard. EXTREMITIES: Normal range of motion, 2+ bilateral lower extremity pitting edema. No clubbing or cyanosis. Peripheral pulses intact. - Labs CBC & Chem 7: 10/14/17 06:37 10/14/17 06:37 Labs: Abnormal Lab Results - Last 24 Hours (Table) 10/14/17 10/14/17 Range/Units 06:37 06:37 Hgb 12.2 L (13.0-17.5) gm/dL MCH 24.9 L (25.0-35.0) pg MCHC 30.9 L (31.0-37.0) g/dL RDW 18.2 H (11.5-15.5) % Plt Count 128 L (150-450) k/uL Lymphocytes # 0.7 L (1.0-4.8) k/uL Potassium 3.2 L (3.5-5.1) mmol/L Carbon Dioxide 38 H (22-30) mmol/L BUN 25 H (9-20) mg/dL Total Bilirubin 2.2 H (0.2-1.3) mg/dL Total Protein 5.4 L (6.3-8.2) g/dL Albumin 3.0 L (3.5-5.0) g/dL Assessment and Plan Assessment: ASSESSMENT Acute on chronic systolic heart failure, EF 30-35% Urinary retention History of coronary artery disease status post bypass grafting Ischemic cardiomyopathy status post AICD Hypokalemia PLAN Continue to replace potassium per protocol. Ongoing diuresis for an additional 24 hours. Will transition to oral diuretics tomorrow morning. Further recommendations to follow based upon clinical course. Nurse Practitioner note has been reviewed, I agree with a documented findings and plan of care. Patient was seen and examined.
[2017-10-14] MEDS ORDERED: Magnesium Replacement Protocol 1 EACH MISC MISCELLANE PRN (14:13)
--- NOTE | 2017-10-14 14:18 | P.PN ---
Subjective Progress Note Date: 10/14/17 Kulwant Fernandes is a 72-year-old male who presented to [facility] emergency room yesterday evening for evaluation of scrotal and leg edema and urinary retention. Patient was evaluated in the emergency room and had evidence of urinary retention with a bladder scan showing more than 1000 mL in the bladder a Steven catheter was inserted in the emergency room with difficulty patient was admitted to medical floor and urology consultation was requested. A scrotal ultrasound was obtained while the patient was in the emergency room due to the scrotal edema but there was no evidence of abscess or abnormality of the testicles or epididymitis. Patient was recently admitted to [facility] for acute congestive heart failure exacerbation he was treated with IV Lasix and was discharged home on 10/09/2017 he started having worsening swelling in the lower extremities and in the scrotum and he subsequently was unable to urinate. Patient was seen and examined on 10/11/2017 on the medical floor he is feeling better he is alert and oriented 3 pain in the scrotal area has improved and swelling has improved patient has a Steven catheter and is draining well, he was evaluated by Dr. Hamilton urologist. 10/12/2017 patient is still having lower extremity edema and scrotal swelling. This is likely related to fluid overload. Patient is currently on Lasix 40 mg by mouth daily. Patient does report some improvement in his swelling. Denies any shortness of breath. Has been up and ambulating. Denies any chest pain. Denies any nausea or vomiting. Has Steven catheter in place. Is followed by urology. Urinalysis is negative. Nursing staff concerned about patient's heart rate reported that heart rate had been in Brown 58-60. Parameters to hold Coreg if heart rate is less than 55. Also in the reported an irregular heartbeat. EKG completed showing a heart rate of 60 6H paced with occasional PVCs and a possible inferior and anterior lateral infarct age undetermined. At this time patient denies any chest pain. Cardiology will be consulted in regards to patient's congestive heart failure. 10/13/2017 patient seen by patient services manager yesterday and was started on IV Lasix. His weight is state about the same. There is slight decrease in the lower extremity swelling. Denies any chest pain or shortness of breath. Complaining that he was unable to sleep melatonin has been added. Creatinine is at 1.25. Potassium low at 3.3 magnesium 1.7 he is receiving supplement. He has not had a bowel movement in 3 days Colace added 10/14/2017 patient is currently sitting up in chair with no complaints at this time. Patient remains on IV Lasix. per Cardiology patient will be placed on oral Lasix tomorrow. Creatinine 1.12. Mag 1.7 and potassium 3.2, will replace per protocol. We'll continue to monitor. Patient denies chest pain or shortness of breath. Denies nausea vomiting or diarrhea. Denies urinary symptoms Objective - Vital Signs Vital signs: Vital Signs Temp 98.1 F 10/14/17 09:01 Pulse 62 10/14/17 09:01 Resp 18 10/14/17 09:01 BP 126/56 10/14/17 09:01 Pulse Ox 92 L 10/14/17 09:01 Intake & Output 10/13/17 10/14/17 10/14/17 18:59 06:59 18:59 Intake Total 100 Output Total 2700 3000 1900 Balance -2700 -2900 -1900 Weight 85 kg Intake: Oral 100 Output: Urine 2700 3000 1900 Other: Voiding Method Indwelling Catheter Indwelling Catheter - Exam Head normocephalic Neck supple Lungs clear to auscultation bilaterally no wheezing or crackles Heart regular rate and rhythm S1-S2, no rub or gallop Abdomen is soft nontender nondistended positive bowel sounds no hepatosplenomegaly Extremities +2 lower extremity edema and scrotal edema Neuro alert and orientated to 3 - Labs CBC & Chem 7: 10/14/17 06:37 10/14/17 06:37 Labs: Abnormal Lab Results - Last 24 Hours (Table) 10/14/17 10/14/17 Range/Units 06:37 06:37 Hgb 12.2 L (13.0-17.5) gm/dL MCH 24.9 L (25.0-35.0) pg MCHC 30.9 L (31.0-37.0) g/dL RDW 18.2 H (11.5-15.5) % Plt Count 128 L (150-450) k/uL Lymphocytes # 0.7 L (1.0-4.8) k/uL Potassium 3.2 L (3.5-5.1) mmol/L Carbon Dioxide 38 H (22-30) mmol/L BUN 25 H (9-20) mg/dL Total Bilirubin 2.2 H (0.2-1.3) mg/dL Total Protein 5.4 L (6.3-8.2) g/dL Albumin 3.0 L (3.5-5.0) g/dL Assessment and Plan Assessment: #1 urinary retention: Continue Steven catheter for several days prior to voiding trial. Patient followed closely by urology. Urinary retention likely secondary to history of bladder outflow obstruction and diuresis. Per Cardiology will continue on IV Lasix thoughout night and will switch to oral Lasix in AM #2 scrotal edema, improving most likely related to passive congestion due to congestive heart failure also albumin is somewhat low at 3.1 #3 hypokalemia : Potassium supplement given. Also will start a daily K-Dur 20 milliequivalents. Hypomagnesemia replaced magnesium. Recheck magnesium in a.m. Magnesium 1.7. Potassium 3.2 replaced per protocol #4 acute on chronic systolic congestive heart failure exacerbation. Patient's by cardiology. Started her on IV Lasix 40 mg every 12 hours. per Cardiology will switch to oral lasix tomorrow #5 underlying history of coronary artery disease with history of coronary artery bypass graft surgery 3 years ago #6 underlying history of cardiomyopathy patient has an AICD #7 iron deficiency anemia hemoglobin 11.8 will continue with iron supplements. He will globin 12.2 #8 scrotal erythema and possible cellulitis patient continue Rocephin #9 thrombocytopenia: Continue to monitor closely. Platelets are up to 128 #10 consult PT OT and Dr. Suárez for possible inpatient rehab #11 constipation had Colace #12 insomnia add melatonin DVT prophylaxis SCDs and GI prophylaxis Pepcid I performed an examination of the patient and discussed their management with the Nurse Practitioner. I have reviewed the Nurse Practitioner's notes and agree with the documented findings and plan of care
[2017-10-14] MEDS: MAGNESIUM SULFATE-D5W PMX 1 GM in DEXTROSE/WATER 1 100ML.BAG IVPB SCH ×2 (17:05→19:12)
[2017-10-14] MEDS: LOSARTAN 25 MG TAB PO SCH (20:51)
[2017-10-14] MEDS: FINASTERIDE 5 MG TAB PO SCH (20:52)
[2017-10-14] MEDS: FAMOTIDINE 20 MG TAB PO SCH (20:52)
[2017-10-14] MEDS: ATORVASTATIN 40 MG TAB PO SCH (20:52)
[2017-10-14] MEDS: MELATONIN 1 MG TAB PO SCH (21:25)
[2017-10-15 07:19] LABS: Anisocytosis Slight; Basophils % (A) 0 %; Eosinophils # (A) 0.2 k/uL (0-0.7); Eosinophils % (A) 3 %; HCT 39.2 % (39.0-53.0); HGB 11.9 gm/dL (13.0-17.5); Hypochromasia Marked; Lymphocytes # (A) 0.6 k/uL (1.0-4.8); Lymphocytes % (A) 10 %; MCH 24.8 pg (25.0-35.0); MCHC 30.4 g/dL (31.0-37.0); MCV 81.4 fL (80.0-100.0); Mean Platelet Volume 9.5; Microcytosis Slight; Monocytes # (A) 0.8 k/uL (0-1.0); Monocytes % (A) 13 %; Neutrophils # (A) 4.3 k/uL (1.3-7.7); Neutrophils % (A) 69 %; Platelet Count 136 k/uL (150-450); Poikilocytosis Slight; RBC 4.81 m/uL (4.30-5.90); RDW 18.2 % (11.5-15.5); WBC 6.2 k/uL (3.8-10.6)
[2017-10-15 07:30] LABS: Albumin 3.1 g/dL (3.5-5.0); Calcium 8.6 mg/dL (8.4-10.2); Magnesium 2.1 mg/dL (1.6-2.3); Potassium 3.5 mmol/L (3.5-5.1); Total Bilirubin 2.4 mg/dL (0.2-1.3); Total Protein 5.8 g/dL (6.3-8.2)
[2017-10-15] MEDS: FERROUS SULFATE 325 MG TAB PO SCH (08:30)
[2017-10-15] MEDS: FUROSEMIDE 40 MG TAB PO SCH ×2 (08:30→16:24)
[2017-10-15] MEDS: DOCUSATE 100 MG CAP PO SCH (08:30)
[2017-10-15] MEDS: POTASSIUM CHLORIDE ER 20 MEQ TAB.ER PO SCH (08:30)
[2017-10-15] MEDS: CARVEDILOL 12.5 MG TAB PO SCH (08:30)
[2017-10-15] MEDS: ASPIRIN 81 MG PO SCH (08:30)
[2017-10-15] MEDS: TAMSULOSIN 0.4 MG CAP.ER.24H PO SCH (08:31)
[2017-10-15] MEDS: cefTRIAXone IN SWFI 1,000 MG/10 ML SYRINGE IVP SCH (08:31)
[2017-10-15] MEDS ORDERED: POTASSIUM CHLORIDE ER 20 MEQ TAB.ER PO STA (09:54)
--- NOTE | 2017-10-15 11:59 | CDI ---
Last Revision, January 2017 Documentation Clarification Form Date: 10/15/2017 11:47:03 AM From: Amy JaimeCisnerosRONAL, CCDS Admit Date: 10/12/2017 4:15:00 PM Patient Name: Kulwant Fernandes Visit Number: [id number] Discharge Date: ATTENTION: The Clinical Documentation Specialists (CDI) and [facility] Coding Staff appreciate your assistance in clarifying documentation. Please respond to the clarification below the line at the bottom and electronically sign. The CDI & [facility] Coding staff will review the response and follow-up if needed. Please note: Queries are made part of the Legal Health Record. If you have any questions, please contact the author of this message via ITS. Gage Cat MD 72 yo male, admitted urinary retention and scrotal swelling possibly due to known bladder outlet obstruction. Also diagnosed with hypertension with acute on chronic systolic heart failure and documented chronic kidney disease, history of cardiorenal syndrome. History/Risk Factors: Systolic CHF, CKD, CAD status post CABG and BPH. Clinical Indicators: Admitting BUN/Cr/GFR: . Current BUN/Cr/GFR: 03.13 Baseline BUN/Cr/GFR unknown or not documented. Treatment: IV Ms, IV Narcan, IV Zofran, IV Rocephin, IV Lasix. Home Rx: Flomax, Cozaar, Lasix, Proscar, Feosol, Coreg, Lipitor In order to capture the severity of condition, please clarify if the condition signifies: CKD Stage 1 (GFR > 90) CKD Stage 2 (GFR 60-89) CKD Stage 3 (GFR 30-59) CKD Stage 4 (GFR 15-29) CKD Stage 5 (GFR <15) ESRD Other, please specify Unable to determine Please continue to document in your progress notes and discharge summary in order to capture severity of illness and risk of mortality. Include clinical findings that support your diagnosis. MTDD
--- NOTE | 2017-10-15 12:52 | P.PN ---
Progress Note - Text Progress Note Date: 10/15/17 There is still evidence of moderate scrotal edema, but this is much improved. The testes are palpably normal. The Steven catheter remains in place, draining clear yellow urine. The catheter will remain in place throughout the weekend. The patient understands the possibility that he will be discharged home with the catheter, in which case it will be managed as an outpatient.
--- NOTE | 2017-10-15 13:25 | P.PN ---
Subjective Mr. Fernandes is seen and examined sitting up in bed in no acute distress. Past medical history significant for coronary artery disease status post bypass grafting 2012, severe ischemic cardiomyopathy with EF 30-35%, status post AICD and dyslipidemia. He is consistently maintaining a negative fluid balance. Previous 24 hours reflects -5200 mL. Blood pressure 134/60 heart rate 64 afebrile maintaining oxygen saturation on room air. Lower extremity edema is improving slowly. He denies symptoms of chest pain, shortness of breath, dizziness or palpitations. Laboratory data reviewed, hemoglobin 11.9, platelets 136, sodium 141, potassium 3.5, magnesium 2.1 and creatinine 1.12. Objective - Vital Signs Vital signs: Vital Signs Temp 97.9 F 10/15/17 07:10 Pulse 64 10/15/17 08:25 Resp 18 10/15/17 07:10 BP 134/60 10/15/17 08:25 Pulse Ox 92 L 10/15/17 07:10 Intake & Output 10/14/17 10/15/17 10/15/17 18:59 06:59 18:59 Intake Total 100 350 Output Total 3100 2200 Balance -3100 -2100 350 Intake: Intake, IV Titration 100 Amount Magnesium Sulfate-D5w Pmx 100 1 gm In Dextrose/Water 1 100ml.bag @ 100 mls/hr IVPB Q1H [facility] Rx#: [id number] Oral 350 Output: Urine 3100 2200 Uretheral (Steven) 2200 Other: Voiding Method Indwelling Catheter Indwelling Catheter - Exam GENERAL: Well-appearing, well-nourished and in no acute distress. NECK: Supple without JVD or thyromegaly. LUNGS: Breath sounds clear to auscultation bilaterally. Respiration equal and unlabored. No wheezes, rales or rhonchi. Diminished bilaterally. HEART: Regular rate and rhythm without murmurs, rubs or gallops. S1 and S2 heard. EXTREMITIES: Normal range of motion, 1+ bilateral lower extremity pitting edema. No clubbing or cyanosis. Peripheral pulses intact. - Labs CBC & Chem 7: 10/15/17 06:43 10/15/17 06:43 Labs: Abnormal Lab Results - Last 24 Hours (Table) 10/15/17 10/15/17 Range/Units 06:43 06:43 Hgb 11.9 L (13.0-17.5) gm/dL MCH 24.8 L (25.0-35.0) pg MCHC 30.4 L (31.0-37.0) g/dL RDW 18.2 H (11.5-15.5) % Plt Count 136 L (150-450) k/uL Lymphocytes # 0.6 L (1.0-4.8) k/uL Carbon Dioxide 37 H (22-30) mmol/L BUN 24 H (9-20) mg/dL Total Bilirubin 2.4 H (0.2-1.3) mg/dL Total Protein 5.8 L (6.3-8.2) g/dL Albumin 3.1 L (3.5-5.0) g/dL Assessment and Plan Assessment: ASSESSMENT Acute on chronic systolic heart failure, EF 25-30% Urinary retention History of coronary artery disease status post bypass grafting Ischemic cardiomyopathy status post AICD Hypokalemia PLAN Transition to oral diuretics, 40 mg by mouth twice a day. Stable from a cardiac perspective for transfer to rehab facility her primary medical team. Follow up with Dr. Castillo in 1-2 weeks. Nurse Practitioner note has been reviewed, I agree with a documented findings and plan of care. Patient was seen and examined.
--- NOTE | 2017-10-15 14:37 | P.DS ---
Providers Date of admission: 10/12/17 16:15 Expected date of discharge: 10/15/17 Attending physician: Gage De La Rosa Consults: 10/10/17 17:32 Consult Physician Stat Consulting Provider: Juan M Hamilton Consult Reason/Comments: Urinary retention Do you want consulting provider notified?: Yes 10/12/17 10:53 Consult Physician Routine Consulting Provider: Perla Obregon Consult Reason/Comments: CHF Do you want consulting provider notified?: Yes 10/12/17 10:54 Consult Physician Routine Consulting Provider: Francisco Suárez Consult Reason/Comments: inpatient rehab Do you want consulting provider notified?: Yes Primary care physician: Emilee Wright [facility] Course: Discharge diagnosis #1 urinary retention: Continue Agudelo catheter for several days prior to voiding trial. Patient followed closely by urology. Urinary retention likely secondary to history of bladder outflow obstruction and diuresis. #2 scrotal edema, improving most likely related to passive congestion due to congestive heart failure also albumin is somewhat low at 3.1 #3 hypokalemia and hypomagnesemia improved. Potassium at discharge 3.5. Patient's k-dur increased 20 mEq twice a day #4 acute on chronic systolic congestive heart failure exacerbation. Cardiology is placed patient on Lasix 40 mg twice a day #5 underlying history of coronary artery disease with history of coronary artery bypass graft surgery 3 years ago #6 underlying history of cardiomyopathy patient has an AICD #7 iron deficiency anemia continue with iron supplements. #8 scrotal erythema and possible cellulitis patient treated with Rocephin for 5 days. Symptoms resolved. No further antibiotics needed. #9 thrombocytopenia: Continue to monitor closely. Platelets are up to 128 Hospital course Kulwant Fernandes is a 72-year-old male who presented to [facility] emergency room yesterday evening for evaluation of scrotal and leg edema and urinary retention. Patient was evaluated in the emergency room and had evidence of urinary retention with a bladder scan showing more than 1000 mL in the bladder a Agudelo catheter was inserted in the emergency room with difficulty patient was admitted to medical floor and urology consultation was requested. A scrotal ultrasound was obtained while the patient was in the emergency room due to the scrotal edema but there was no evidence of abscess or abnormality of the testicles or epididymitis. Patient was recently admitted to [facility] for acute congestive heart failure exacerbation he was treated with IV Lasix and was discharged home on 10/09/2017 he started having worsening swelling in the lower extremities and in the scrotum and he subsequently was unable to urinate. Patient was seen and examined on 10/11/2017 on the medical floor he is feeling better he is alert and oriented 3 pain in the scrotal area has improved and swelling has improved patient has a Agudelo catheter and is draining well, he was evaluated by Dr. Hamilton urologist. 10/12/2017 patient is still having lower extremity edema and scrotal swelling. This is likely related to fluid overload. Patient is currently on Lasix 40 mg by mouth daily. Patient does report some improvement in his swelling. Denies any shortness of breath. Has been up and ambulating. Denies any chest pain. Denies any nausea or vomiting. Has Agudelo catheter in place. Is followed by urology. Urinalysis is negative. Nursing staff concerned about patient's heart rate reported that heart rate had been in Brown 58-60. Parameters to hold Coreg if heart rate is less than 55. Also in the reported an irregular heartbeat. EKG completed showing a heart rate of 60 6H paced with occasional PVCs and a possible inferior and anterior lateral infarct age undetermined. At this time patient denies any chest pain. Cardiology will be consulted in regards to patient's congestive heart failure. 10/13/2017 patient seen by coating inspector yesterday and was started on IV Lasix. His weight is state about the same. There is slight decrease in the lower extremity swelling. Denies any chest pain or shortness of breath. Complaining that he was unable to sleep melatonin has been added. Creatinine is at 1.25. Potassium low at 3.3 magnesium 1.7 he is receiving supplement. He has not had a bowel movement in 3 days Colace added 10/14/2017 patient is currently sitting up in chair with no complaints at this time. Patient remains on IV Lasix. per Cardiology patient will be placed on oral Lasix tomorrow. Creatinine 1.12. Mag 1.7 and potassium 3.2, will replace per protocol. We'll continue to monitor. Patient denies chest pain or shortness of breath. Denies nausea vomiting or diarrhea. Denies urinary symptoms Patient was switched over to oral Lasix today. Patient does still have some residual lower extremity swelling and scrotal edema however this has improved since admission. Cardiology and urology has cleared patient for discharge. He' s to continue Lasix 40 mg 20 mg twice a day which is an increased dose from Lasix 40 mg daily that he was on at home. Also his potassium and magnesium were replaced during this admission. Potassium supplement has been increased to 20 mEq twice a day. Patient is medically stable for discharge. He'll discharged to [facility] for further rehabilitation. Dr. De Luna is recommending a Agudelo catheter to be continued throughout the weekend. We'll have patient follow-up with urology early next week for them to discontinue the Agudelo catheter. Check a BMP and magnesium level in 2 days I performed an examination of the patient and discussed their management with the physician Test Preparation Tutor. I have reviewed the Physician Test Preparation Tutor's notes and agree with the documented findings and plan of care Patient Condition at Discharge: Stable Plan - Discharge Summary Discharge Rx Participant: Yes New Discharge Prescriptions: New Furosemide [Lasix] 40 mg PO BID@0900,1600 #60 tab Potassium Chloride ER [K-Dur 20] 20 meq PO BID #60 tab.er.prt Continue Finasteride [Proscar] 5 mg PO HS Aspirin [Adult Low Dose Aspirin EC] 81 mg PO DAILY Tamsulosin [Flomax] 0.4 mg PO DAILY Famotidine 20 mg PO HS Atorvastatin [Lipitor] 40 mg PO HS Losartan [Cozaar] 25 mg PO HS Carvedilol [Coreg*] 25 mg PO BID Ferrous Sulfate [Feosol] 325 mg PO BID #60 tab Discontinued Furosemide [Lasix] 40 mg PO DAILY #30 tablet Discharge Medication List Aspirin [Adult Low Dose Aspirin EC] 81 mg PO DAILY 07/06/17 [History] Atorvastatin [Lipitor] 40 mg PO HS 07/06/17 [History] Carvedilol [Coreg*] 25 mg PO BID 07/06/17 [History] Famotidine 20 mg PO HS 07/06/17 [History] Finasteride [Proscar] 5 mg PO HS 07/06/17 [History] Losartan [Cozaar] 25 mg PO HS 07/06/17 [History] Tamsulosin [Flomax] 0.4 mg PO DAILY 07/06/17 [History] Ferrous Sulfate [Feosol] 325 mg PO BID #60 tab 10/09/17 [Rx] Furosemide [Lasix] 40 mg PO BID@0900,1600 #60 tab 10/15/17 [Rx] Potassium Chloride ER [K-Dur 20] 20 meq PO BID #60 tab.er.prt 10/15/17 [Rx] Follow up Appointment(s)/Referral(s): Beltran Castillo MD [STAFF PHYSICIAN] - 1 Week Emilee Wright DO [Primary Care Provider] - 1 Week Navi Bowie MD [Family Provider] - 3 Days Ambulatory/Diagnostic Orders: Basic Metabolic Panel [LAB.AMB] Time Frame: 2 Days, Location: None Selected Activity/Diet/Wound Care/Special Instructions: Diet: cardiac Activity: as tolerated keep agudelo catheter in place until seen by urology Discharge patient to [facility] Dr. De La Rosa to follow at [place] Discharge Disposition: TRANSFER TO SNF/ECF
[2017-10-15 15:14] VITALS: BP 137/77; PULSE 62; RESP 16; TEMP 97.8
[2017-10-15] MEDS ORDERED: POTASSIUM CHLORIDE ER 20 MEQ TAB.ER PO SCH (21:00)
== END 2017-10-15 17:05 | DRG 698 ==
LOC: EC 12:22 → 3SUR 17:27 → INTOOBSV 17:27 → OBSVTOIN 10-12 16:15
PROVIDERS: ADMIT Internal Medicine; ATTEND Internal Medicine
DX: N32.0 Bladder-neck obstruction (principal); I50.23 Acute on chronic systolic (congestive) heart failure; I13.0 Hypertensive heart and chronic kidney disease with heart failure and stage 1 through stage 4 chronic kidney disease, or unspecified chronic kidney disease; R33.8 Other retention of urine; N50.3 Cyst of epididymis; N49.2 Inflammatory disorders of scrotum; D50.9 Iron deficiency anemia, unspecified; D69.6 Thrombocytopenia, unspecified; E78.5 Hyperlipidemia, unspecified; E83.42 Hypomagnesemia; E87.6 Hypokalemia; G47.00 Insomnia, unspecified; G47.30 Sleep apnea, unspecified; I25.10 Atherosclerotic heart disease of native coronary artery without angina pectoris; I25.5 Ischemic cardiomyopathy; I49.3 Ventricular premature depolarization; K59.00 Constipation, unspecified; N18.9 Chronic kidney disease, unspecified; N40.1 Benign prostatic hyperplasia with lower urinary tract symptoms; N43.3 Hydrocele, unspecified; Z79.82 Long term (current) use of aspirin; Z80.42 Family history of malignant neoplasm of prostate; Z86.73 Personal history of transient ischemic attack (TIA), and cerebral infarction without residual deficits; Z87.442 Personal history of urinary calculi; Z87.891 Personal history of nicotine dependence; Z95.1 Presence of aortocoronary bypass graft; Z95.810 Presence of automatic (implantable) cardiac defibrillator; T50.2X5A Adverse effect of carbonic-anhydrase inhibitors, benzothiadiazides and other diuretics, initial encounter; Z60.2 Problems related to living alone; Z88.2 Allergy status to sulfonamides; Z95.828 Presence of other vascular implants and grafts; Z79.899 Other long term (current) drug therapy
CPT/HCPCS: 36415; 51702; 51798; 71046; 76870; 80053; 81003; 83735; 83880; 85025; 85610; 85730; 87086; 93005; 93975; 96374; 96375; 99285

== ENCOUNTER → 2019-11-18 | Outpatient (CLI) | payer MEDICARE ==
[2019-11-19 00:15] LABS: African American GFR (CKD) 47.8 (60.0-200.0); Anion Gap 9.6 mmol/L (4.00-12.00); Calcium 9.4 mg/dL (8.7-10.3); Carbon Dioxide 27.4 mmol/L (21.6-31.8); Chol/HDL Ratio 4.17; LDL Cholesterol,Calculated 160.6 mg/dL (0.0-131.0); Non-African American GFR(CKD) 41.2 (60.0-200.0); Potassium 4.8 mmol/L (3.5-5.5); VLDL Calculation 23.4 mg/dL (5.00-40.00)
== END | disposition home or self-care (01) ==
LOC: LABWHC1 14:45
PROVIDERS: ATTEND Physician Assistant
DX: E78.5 Hyperlipidemia, unspecified (principal); I50.9 Heart failure, unspecified
CPT/HCPCS: 36415; 80048; 80061

== ENCOUNTER → 2019-12-02 | Outpatient (CLI) | payer MEDICARE ==
[~2019-12-02] MED LIST changes: -LACTATED RINGERS 1,000 ML IV SCH; -MIDAZOLAM 2 MG/2 ML VIAL IV PRN; +SODIUM CHLORIDE 0.9% 1,000 ML IV SCH; -ceFAZolin 1,000 MG in SODIUM CHLORIDE 0.9% IRRIGATIO 250 ML IRRIGATION ONE; -ceFAZolin IN SWFI 2 GM/20 ML SYRINGE IVP ONE; -fentaNYL (PF) 50 MCG/ML 2 ML AMP IV PRN
--- NOTE | 2019-12-03 13:01 | CT ---
EXAMINATION TYPE: CT angio neck DATE OF EXAM: 12/02/2019 HISTORY: Carotid stenosis per order. COMPARISON: NONE CT DLP: 363.9 mGycm. Automated Exposure Control for Dose Reduction was Utilized. TECHNIQUE: CTA scan of the neck is performed with IV Contrast, patient injected with 65 mL of Isovue 370, axial images are obtained, coronal and sagittal reformatted images are reviewed. Three-D recons tructed images are created on an independent workstation and reviewed. FINDINGS: Carotid/Vascular Structures: Moderate mixed plaque in aortic arch. Normal three-vessel origin from ao rtic arch with moderate to severe mixed concentric plaque. Significant stenosis in the left subclavia n artery is present. Lumen diameter narrowed to 3.3 mm posterior aspect right data image 160 and sal nstitutes to 9.0 mm superior to this. Diameter Narrowing of 60-66% is felt present. Right common carotid artery shows normal origin from right brachiocephalic artery. Mild to moderate m ixed plaque along the entire course of the right common carotid artery. More severe calcified plaque right carotid bulb extends into proximal internal carotid artery. Lumen diameter narrowed to 2.1 mm r aw data image 632 with reconstitution superiorly to 9.0 mm. Lumen diameter narrowing approaching 80% . Mixed severe plaque extends into external carotid artery causing significant stenosis also. Remaind er of right internal carotid artery shows [id number] calcified plaque along its entire course w ithout additional significant stenosis. Moderate mixed plaque proximal left common carotid artery without significant stenosis. More mild vinny que along the mid segment without significant stenosis. There is more moderate to severe predominantl y noncalcified plaque distal left common carotid artery without significant stenosis. Severe mixed pl aque left carotid bulb extends into proximal internal carotid artery causing significant stenosis. Katy zoie diameter narrowed to roughly 9 mm image 647 with reconstitution tor 9.6 mm distally image 673. Stenosis roughly 90%. Significant stenosis at origin of left external carotid artery is seen estimate d 75%. There is more mild calcified plaque without additional significant stenosis in the distal left internal carotid artery. 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 Reversal of normal cervical curvature with moderate multilevel spurring and disc space narrowing grea test at C6-C7 and C7-T1 levels. Multilevel uncovertebral facet degenerative changes. Mild emphysematous change visualized lung apices. IMPRESSION: 1. Significant stenosis left subclavian artery measured 60-66%. 2. Incidental significant stenosis origin of the bilateral external carotid arteries, measured 70-75% . 3. Severe focal plaque left carotid bulb into proximal internal carotid artery causing stenosis measu red 90%. 4. Severe mixed plaque proximal left internal carotid artery right after bulb causing stenosis measur ed just under 80%. Consider direct catheter angiogram to further evaluate and/or treat.
== END | disposition home or self-care (01) ==
LOC: RADCTMAIN 13:18
PROVIDERS: ATTEND Internal Medicine Clinical Cardiac Electrophysiology
DX: I65.23 Occlusion and stenosis of bilateral carotid arteries (principal)
CPT/HCPCS: 82565; 84520; 83721; 70498; Q9967

== ENCOUNTER → 2020-02-20 | Outpatient (CLI) | payer MEDICARE ==
[2020-02-20 17:14] LABS: African American GFR (CKD) 30.8 (60.0-200.0); Anion Gap 8.9 mmol/L (4.00-12.00); BUN/Creat Ratio 19.13 Ratio (12.00-20.00); Calcium 9.3 mg/dL (8.7-10.3); Carbon Dioxide 30.1 mmol/L (21.6-31.8); Chol/HDL Ratio 3.61; LDL Cholesterol,Calculated 118.6 mg/dL (0.0-131.0); Magnesium 2.2 mg/dL (1.5-2.4); Non-African American GFR(CKD) 26.6 (60.0-200.0); Potassium 4.5 mmol/L (3.5-5.5); VLDL Calculation 22.4 mg/dL (5.00-40.00)
== END | disposition home or self-care (01) ==
LOC: LABWHC1 10:03
PROVIDERS: ATTEND Nurse Practitioner Adult Health
DX: I10 Essential (primary) hypertension (principal); E78.5 Hyperlipidemia, unspecified
CPT/HCPCS: 36415; 80048; 80061; 83735

== ENCOUNTER 2020-07-08 15:33 | Observation (INO) | payer MEDICARE ==
[2020-07-08] MEDS ORDERED: KETOROLAC 15 MG/ML 1 ML VIAL IVP STA (16:40)
[2020-07-08] MEDS ORDERED: SODIUM CHLORIDE 0.9% 500 ML 500 ML IV STA (16:45)
--- NOTE | 2020-07-08 16:46 | ED ---
General Adult HPI - General Chief complaint: Urogenital Stated complaint: Groin pain Time Seen by Provider: 07/08/20 15:46 Source: patient, RN notes reviewed Mode of arrival: ambulatory Limitations: no limitations - History of Present Illness Initial comments: 75-year-old male with a past medical history of heart failure, hyperlipidemia, TIA, coronary artery disease presents to the emergency room for right hip pain. Patient states he has had right hip pain for 2 days. He reports that he it started Thursday. He does not recall any injury, woke up with this pain. States he can hardly walk on this hip. Patient lives alone in a two-story house. Waldemar danielson states the pain worsens with movement of the hip or with bearing weight.Patient has no other complaints at this time including shortness of breath, chest pain, abdominal pain, nausea or vomiting, headache, or visual changes. - Related Data Home Medications Medication Instructions Recorded Confirmed Famotidine 20 mg PO HS 07/06/17 07/08/20 Tamsulosin [Flomax] 0.4 mg PO DAILY 07/06/17 07/08/20 Atorvastatin [Lipitor] 80 mg PO HS 07/08/20 07/08/20 Carvedilol [Coreg] 12.5 mg PO BID 07/08/20 07/08/20 Losartan Potassium 25 mg PO DAILY 07/08/20 07/08/20 Mirabegron [Myrbetriq] 25 mg PO DAILY 07/08/20 07/08/20 Potassium Chloride ER [K-Dur 20] 20 meq PO DAILY 07/08/20 07/08/20 Spironolactone [Aldactone] 25 mg PO DAILY 07/08/20 07/08/20 Allergies Allergy/AdvReac Type Severity Reaction Status Date / Time Sulfa (Sulfonamide Allergy Itching Verified 07/08/20 16:26 Antibiotics) Review of Systems ROS Statement: Those systems with pertinent positive or pertinent negative responses have been documented in the HPI. ROS Other: All systems not noted in ROS Statement are negative. Past Medical History Past Medical History: Coronary Artery Disease (CAD), Heart Failure, CVA/TIA, Hyperlipidemia, Prostate Disorder, Renal Disease, Sleep Apnea/CPAP/BIPAP Additional Past Medical History / Comment(s): TIA's before CABG, hx kidney stones, enlarged prostate, cardiomyopathy, History of Any Multi-Drug Resistant Organisms: None Reported Past Surgical History: Coronary Bypass/CABG, Heart Catheterization, Hernia Repair, Tonsillectomy Additional Past Surgical History / Comment(s): quad. bypass 2-3 yrs ago, stents keisha legs, growth removed from jaw, Defibrillator Past Anesthesia/Blood Transfusion Reactions: Motion Sickness Past Psychological History: No Psychological Hx Reported Smoking Status: Former smoker Past Alcohol Use History: None Reported Past Drug Use History: None Reported - Past Family History Mother Family Medical History: No Reported History General Exam Limitations: no limitations General appearance: alert, in no apparent distress Head exam: Present: atraumatic, normocephalic, normal inspection Eye exam: Present: normal appearance, PERRL, EOMI. Absent: scleral icterus, conjunctival injection, periorbital swelling ENT exam: Present: normal exam, mucous membranes moist Neck exam: Present: normal inspection. Absent: tenderness, meningismus, lymphadenopathy Respiratory exam: Present: normal lung sounds bilaterally. Absent: respiratory distress, wheezes, rales, rhonchi, stridor Cardiovascular Exam: Present: regular rate, normal rhythm, normal heart sounds. Absent: systolic murmur, diastolic murmur, rubs, gallop, clicks GI/Abdominal exam: Present: soft, normal bowel sounds. Absent: distended, tenderness, guarding, rebound, rigid Extremities exam: Present: other (sensation intact RLE). Absent: full ROM (Patient has pain with internal rotation of the right hip. Patient able to flex her hip to 45, extend to neutral position.), normal capillary refill (Capillary refill is sluggish however patient does have DP and PT signals in BLE) Neurological exam: Present: alert Course Vital Signs 07/08/20 07/08/20 15:39 17:35 Temperature 98.0 F Pulse Rate 75 82 Respiratory 18 16 Rate Blood Pressure 90/66 183/87 O2 Sat by Pulse 99 97 Oximetry EKG Findings - EKG Comments: EKG Findings:: Normal sinus rhythm, ventricular rate 81, MI interval 202, QTc 460, no chest pain Medical Decision Making - Medical Decision Making Vitals are stable. Patient is well-appearing. However unable to ambulate on the right hip for the past several days. Patient does have sluggish capillary refill in the bilateral feet however states this is chronic for him. He does have Doppler signals in the bilateral DP and PT pulses. Hip pain is reproducible on exam, consistent with musculoskeletal pain. X-ray initially negative. CT ordered. CBC does show leukocytosis with a left shift. CMP shows minimal hypokalemia and minimal acidosis. Creatinine seems to be patient's baseline. Bilirubin is elevated however this also appears chronic in nature. Urinalysis does show evidence of infection. Given leukocytosis and UTI as well as inability to ambulate patient will be admitted for IV antibiotics. - Lab Data Result diagrams: 07/08/20 17:05 07/08/20 17:05 Lab Results 07/08/20 07/08/20 07/08/20 Range/Units 17:05 17:05 17:05 WBC 15.1 H (3.8-10.6) k/uL RBC 5.13 (4.30-5.90) m/uL Hgb 16.1 (13.0-17.5) gm/dL Hct 46.8 (39.0-53.0) % MCV 91.4 (80.0-100.0) fL MCH 31.4 (25.0-35.0) pg MCHC 34.4 (31.0-37.0) g/dL RDW 13.2 (11.5-15.5) % Plt Count 142 L (150-450) k/uL MPV 9.7 Neutrophils % 81 % Lymphocytes % 6 % Monocytes % 9 % Eosinophils % 1 % Basophils % 0 % Neutrophils # 12.2 H (1.3-7.7) k/uL Lymphocytes # 0.9 L (1.0-4.8) k/uL Monocytes # 1.4 H (0-1.0) k/uL Eosinophils # 0.1 (0-0.7) k/uL Basophils # 0.1 (0-0.2) k/uL Sodium 135 L (137-145) mmol/L Potassium 5.7 H (3.5-5.1) mmol/L Chloride 106 (98-107) mmol/L Carbon Dioxide 17 L (22-30) mmol/L Anion Gap 12 mmol/L BUN 34 H (9-20) mg/dL Creatinine 1.72 H (0.66-1.25) mg/dL Est GFR (CKD-EPI)AfAm 43 (>60 ml/min/1.73 sqM) Est GFR (CKD-EPI)NonAf 38 (>60 ml/min/1.73 sqM) Glucose 89 (74-99) mg/dL Calcium 9.2 (8.4-10.2) mg/dL Total Bilirubin 4.5 H (0.2-1.3) mg/dL AST 43 (17-59) U/L ALT 18 (4-49) U/L Alkaline Phosphatase 82 (38-126) U/L Total Protein 7.0 (6.3-8.2) g/dL Albumin 3.9 (3.5-5.0) g/dL Urine Color Yellow Urine Appearance Cloudy (Clear) Urine pH 5.5 (5.0-8.0) Ur Specific Ralph 1.017 (1.001-1.035) Urine Protein 2+ H (Negative) Urine Glucose (UA) Negative (Negative) Urine Ketones 1+ H (Negative) Urine Blood Moderate H (Negative) Urine Nitrite Negative (Negative) Urine Bilirubin Negative (Negative) Urine Urobilinogen <2.0 (<2.0) mg/dL Ur Leukocyte Esterase Large H (Negative) Urine RBC 11 H (0-5) /hpf Urine WBC >182 H (0-5) /hpf Urine WBC Clumps Moderate H (None) /hpf Ur Squamous Epith Cells 1 (0-4) /hpf Urine Bacteria Rare H (None) /hpf Disposition Clinical Impression: UTI (urinary tract infection), Weakness, Leukocytosis, Hip pain, Failure to thrive Disposition: ADMITTED IP TO THIS HOSP Is patient prescribed a controlled substance at d/c from ED?: No Referrals: Emilee Wright DO [Primary Care Provider] - 1-2 days Time of Disposition: 19:08
[2020-07-08 17:46] LABS: Appearance,Urine Cloudy (Clear); Bacteria,Urine Rare /hpf; Bilirubin,Urine Negative (Negative); Blood,Urine Moderate (Negative); Color,Urine Yellow; Glucose,Urine (UA) Negative (Negative); Ketones,Urine 1+ (Negative); Leukocyte Esterase,Urine Large (Negative); Nitrite,Urine Negative (Negative); PH, Urine 5.5 (5.0-8.0); Protein,Urine 2+ (Negative); RBC,Urine 11 /hpf (0-5); Specific Gravity,Urine 1.017 (1.001-1.035); Squamous Epithelial Cell,Urine 1 /hpf (0-4); Urobilinogen,Urine <2.0 mg/dL (<2.0); WBC,Urine >182 /hpf (0-5)
--- NOTE | 2020-07-08 17:58 | XR ---
EXAMINATION TYPE: XR Hip RT and AP Pelvis DATE OF EXAM: 07/08/2020 COMPARISON: NONE HISTORY: Pain TECHNIQUE: A single AP view of the pelvis is obtained. Two views of the right hip are obtained. FINDINGS: There is no acute fracture/dislocation evident in the pelvis. The sacroiliac joints appea r symmetric and unremarkable. There is a arterial stent in the right iliac artery. Two views of right hip show no acute fracture or dislocation. There is mild joint space narrowing, sclerosis of the sub chondral bone of the acetabulum and spurring of the right femoral head consistent with osteoarthritis . IMPRESSION: There is no acute fracture or dislocation in the pelvis or right hip. Moderate osteoarth ritic change of the right hip as described above.
[2020-07-08 18:06] LABS: Basophils # (A) 0.1 k/uL (0-0.2); Basophils % (A) 0 %; Eosinophils # (A) 0.1 k/uL (0-0.7); Eosinophils % (A) 1 %; HCT 46.8 % (39.0-53.0); HGB 16.1 gm/dL (13.0-17.5); Lymphocytes # (A) 0.9 k/uL (1.0-4.8); Lymphocytes % (A) 6 %; MCH 31.4 pg (25.0-35.0); MCHC 34.4 g/dL (31.0-37.0); MCV 91.4 fL (80.0-100.0); Mean Platelet Volume 9.7; Monocytes # (A) 1.4 k/uL (0-1.0); Monocytes % (A) 9 %; Neutrophils # (A) 12.2 k/uL (1.3-7.7); Neutrophils % (A) 81 %; Platelet Count 142 k/uL (150-450); RBC 5.13 m/uL (4.30-5.90); RDW 13.2 % (11.5-15.5); WBC 15.1 k/uL (3.8-10.6)
[2020-07-08 18:22] LABS: Albumin 3.9 g/dL (3.5-5.0); Calcium 9.2 mg/dL (8.4-10.2); Potassium 5.7 mmol/L (3.5-5.1); Total Bilirubin 4.5 mg/dL (0.2-1.3)
[2020-07-08] MEDS ORDERED: MORPHINE SULFATE 2 MG/ML SYRINGE IVP STA (18:26)
[2020-07-08] MEDS ORDERED: NALOXONE 0.4 MG/ML 1 ML VIAL IV PRN (19:09)
[2020-07-08] MEDS ORDERED: MORPHINE SULFATE 4 MG/ML SYRINGE IV PRN (19:09)
--- NOTE | 2020-07-08 19:19 | CT ---
EXAMINATION TYPE: CT hip RT wo con DATE OF EXAM: 07/08/2020 COMPARISON: None HISTORY: right hip pain CT DLP: 894.2 mGycm Automated exposure control for dose reduction was used. Images were obtained from the mid ileum to the mid shaft of the femur with no contrast. The visualized sacroiliac joints are intact. Iliac bone is intact. There is minor spurring of the cleve tabulum. Proximal femur is intact. There is no sign of hip dysplasia. There is atherosclerotic vascul ar calcification. There is no sign of avascular necrosis. There is no evidence of a soft tissue mass. There is no free fluid in the pelvis. There is no evidence of a pelvic mass. Prostate is enlarged an d measures 5.2 cm. IMPRESSION: Minor spurring of the acetabulum. No fracture. No significant hip joint space narrowing.
[2020-07-08] MEDS: SODIUM CHLORIDE 0.9% 1,000 ML IV SCH (20:42)
[2020-07-08] MEDS: ATORVASTATIN 80 MG TAB PO SCH (21:33)
[2020-07-09] MEDS: TAMSULOSIN 0.4 MG CAP.ER.24H PO SCH (08:51)
[2020-07-09] MEDS: POTASSIUM CHLORIDE ER 20 MEQ TAB.ER PO SCH (08:51)
[2020-07-09] MEDS: SPIRONOLACTONE 25 MG TAB PO SCH (08:51)
[2020-07-09] MEDS: carvediloL 12.5 MG TAB PO SCH ×2 (08:51→20:11)
[2020-07-09] MEDS: LOSARTAN 25 MG TAB PO SCH (08:51)
[2020-07-09] MEDS: NON FORMULARY DRUG (Mirabegron [Myrbetriq] 25 MG Tab.Er.24h) PO SCH (08:53)
[2020-07-09 09:08] LABS: HCT 43.2 % (39.6-50.0); HGB 13.9 g/dL (13.0-17.0); MCHC 32.2 g/dL (32.0-37.0); MCV 93.3 fL (80.0-97.0); Mean Platelet Volume 12.6 fL (9.5-12.2); Platelet Count 147 X 10*3/uL (140-440); RBC 4.63 X 10*6/uL (4.40-5.60); RDW 13.3 % (11.5-14.5); WBC 12.37 X 10*3/uL (4.50-10.00)
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
[2020-07-09 10:13] LABS: Basophils # (A) 0.02 X 10*3/uL (0.00-0.10); Basophils % (A) 0.2 %; Crenated RBC 2+; Eosinophils # (A) 0.02 X 10*3/uL (0.04-0.35); Eosinophils % (A) 0.2 %; Lymphocytes # (A) 0.66 X 10*3/uL (0.90-5.00); Lymphocytes % (A) 5.3 %; Monocytes # (A) 1.86 X 10*3/uL (0.20-1.00); Neutrophils # (A) 9.66 X 10*3/uL (1.80-7.70); Neutrophils % (A) 78.1 %
[2020-07-09 10:29] LABS: African American GFR (CKD) 44.1 (60.0-200.0); Anion Gap 6.4 mmol/L (4.00-12.00); BUN/Creat Ratio 21.76 Ratio (12.00-20.00); Calcium 8.1 mg/dL (8.7-10.3); Carbon Dioxide 22.6 mmol/L (21.6-31.8); Non-African American GFR(CKD) 38.1 (60.0-200.0); Potassium 3.9 mmol/L (3.5-5.5)
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
[2020-07-09] MEDS: ENOXAPARIN 40 MG/0.4 ML SYRINGE SQ SCH (17:50)
[2020-07-09] MEDS: ATORVASTATIN 80 MG TAB PO SCH (20:11)
[2020-07-09] MEDS: SODIUM CHLORIDE 0.9% 1,000 ML IV SCH (20:11)
[2020-07-09] MEDS: FAMOTIDINE 20 MG TAB PO SCH (20:11)
[2020-07-09] MEDS: HYDROcodone/APAP 5-325MG 1 EACH TAB PO PRN (21:43)
--- NOTE | 2020-07-10 07:49 | P.PN ---
Subjective Progress Note Date: 07/10/20 Principal diagnosis: Right hip osteoarthritis Upon entering room patient is lying in bed eating breakfast. Patient says nothing much has changed since yesterday. He says he is still having right groin pain. He said he was up once yesterday in the chair with physical therapy/occupational therapy. Patient denies any saddle anesthesia. Denies loss of bladder/bowel control denies chest pain, fever, shortness of breath, vision changes, chills. Objective - Vital Signs Vital signs: Vital Signs Temp 98.5 F 07/10/20 00:44 Pulse 67 07/10/20 00:44 Resp 15 07/10/20 00:44 BP 99/63 07/10/20 00:44 Pulse Ox 97 07/10/20 00:44 Intake & Output 07/09/20 07/10/20 07/10/20 18:59 06:59 18:59 Intake Total 200 Balance 200 Weight 99.5 kg Intake: Oral 200 Other: # Voids 1 - Exam skin inspection: Negative for any open wounds on the right hip. Negative for open fractures. negative for any erythema, ecchymosis, ulcers, lesions along spine. palpation: Palpation of the right hip and inguinal region does reproduce pain. SI joints nontender to palpation bilaterally. cervical and thoracic and lumbar spines are nontender to palpation. negative Homans bilaterally; radial pulses present bilaterally 2+. Dorsalis pedis pulse present 2+ bilaterally Reflexes: negative Pooja's bilaterally; negative clonus upon dorsiflexing feet bilaterally; patellar reflexes normal. sensation: Sensation intact throughout upper and lower extremities. sensation intact throughout spine motor: during exam patient sitting up in bed. Patient is able to elevate upper extremities bilaterally without pain. Patient is able to forward elevate left leg off the bed without any pain. Upon elevation of right leg off the bed, patient gets pain referred to the right hip and inguinal region. strength: 4/5 right lower extremity. 5/5 left lower extremity. 5/5 bilateral upper extremities - Labs CBC & Chem 7: 07/09/20 06:33 07/09/20 06:33 Labs: Abnormal Lab Results - Last 24 Hours (Table) 07/09/20 07/09/20 Range/Units 06:33 06:33 WBC 12.37 H (4.50-10.00) X 10*3/uL MPV 12.6 H (9.5-12.2) fL Immature Gran # 0.15 H (0.00-0.04) X 10*3/uL Neutrophils # 9.66 H (1.80-7.70) X 10*3/uL Lymphocytes # 0.66 L (0.90-5.00) X 10*3/uL Monocytes # 1.86 H (0.20-1.00) X 10*3/uL Eosinophils # 0.02 L (0.04-0.35) X 10*3/uL Chloride 110 H (96-109) mmol/L BUN 37.0 H (9.0-27.0) mg/dL Creatinine 1.7 H (0.6-1.5) mg/dL Est GFR (CKD-EPI)AfAm 44.1 L (60.0-200.0) Est GFR (CKD-EPI)NonAf 38.1 L (60.0-200.0) BUN/Creatinine Ratio 21.76 H (12.00-20.00) Ratio Calcium 8.1 L (8.7-10.3) mg/dL Microbiology - Last 24 Hours (Table) 07/08/20 19:38 Blood Culture - Preliminary Blood No Growth after 24 hours 07/08/20 19:25 Blood Culture - Preliminary Blood No Growth after 24 hours 07/08/20 17:05 Urine Culture - Final Urine,Voided Aerococcus urinae Assessment and Plan Plan: 1. Right hip osteoarthritis - images discuss yesterday. No new imaging at this time. We will follow during inpatient stay. Recommended patient to follow-up with us in outpatient setting 2. Appreciate medical management 3. Pain management - stable at this time 4. PT/OT - out of bed 4 times a day and in chair 5. Weightbearing as tolerated with walker 6. GI prophylaxis/DVT prophylaxis - continue Lovenox while in hospital Time with Patient: Less than 30
[2020-07-10] MEDS: carvediloL 12.5 MG TAB PO SCH ×2 (08:23→20:03)
[2020-07-10] MEDS: POTASSIUM CHLORIDE ER 20 MEQ TAB.ER PO SCH (08:23)
[2020-07-10] MEDS: TAMSULOSIN 0.4 MG CAP.ER.24H PO SCH (08:23)
[2020-07-10] MEDS: SPIRONOLACTONE 25 MG TAB PO SCH (08:23)
[2020-07-10] MEDS: HYDROcodone/APAP 5-325MG 1 EACH TAB PO PRN ×3 (08:23→20:03)
[2020-07-10] MEDS: LOSARTAN 25 MG TAB PO SCH (08:23)
[2020-07-10] MEDS: NON FORMULARY DRUG (Mirabegron [Myrbetriq] 25 MG Tab.Er.24h) PO SCH (09:03)
[2020-07-10 12:35] LABS: Acanthocytes 2+; Basophils # (A) 0.03 X 10*3/uL (0.00-0.10); Basophils % (A) 0.2 %; Eosinophils # (A) 0.08 X 10*3/uL (0.04-0.35); Eosinophils % (A) 0.6 %; HGB 14.6 g/dL (13.0-17.0); Lymphocytes # (A) 0.63 X 10*3/uL (0.90-5.00); Lymphocytes % (A) 4.4 %; MCH 29.9 pg (27.0-32.0); MCHC 31.1 g/dL (32.0-37.0); MCV 96.3 fL (80.0-97.0); Mean Platelet Volume 12.9 fL (9.5-12.2); Monocytes % (A) 10.5 %; Neutrophils # (A) 11.94 X 10*3/uL (1.80-7.70); Neutrophils % (A) 83.3 %; Platelet Count 155 X 10*3/uL (140-440); RBC 4.88 X 10*6/uL (4.40-5.60); RDW 13.5 % (11.5-14.5); WBC 14.33 X 10*3/uL (4.50-10.00)
[2020-07-10 13:45] LABS: African American GFR (CKD) 51.3 (60.0-200.0); Anion Gap 16.5 mmol/L (4.00-12.00); BUN/Creat Ratio 22.67 Ratio (12.00-20.00); Carbon Dioxide 15.5 mmol/L (21.6-31.8); Non-African American GFR(CKD) 44.3 (60.0-200.0); Potassium 4.8 mmol/L (3.5-5.5)
--- NOTE | 2020-07-10 16:50 | P.PN ---
Subjective Progress Note Date: 07/10/20 Mr. Marshall is a 75-year-old male with a past medical history of coronary artery disease, congestive heart failure, CVA/TIA, hypertension, hyperlipidemia, prostate disorder, renal disease, obstructive sleep apnea, nephrolithiasis coming in with a chief complaint of right hip pain. Patient states that he has been having right hip pain for the past 2 days and that he can hardly bear weight on his left lower extremities and that he has alone in a two-story building. Patient denies having any fevers chills or rigors. Denies having any complaints of increased frequency of urination or low back pain. Patient denies having any chest pain or palpitations. No cough or difficulty in breathing. No abdominal pain nausea vomiting or diarrhea. No history of constipation. In the ER at the time of admission patient's vitals temperature 90.8, heart rate 74, respiratory rate 18, blood pressure 90 persisted, saturating at 99% on room air. On reviewing the labs white count of 15, hemoglobin 16, platelets 142. Sodium 135, potassium 5.7, chloride 106, bicarbonate 17, BUN 34, creatinine 1.7 . Urin alysis is positive for moderate blood and large leukocyte esterase and moderate WBC clumps with WBCs more than 182. Hathaway Virus is PCR is negative. Patient had an x-ray of his right hip showing no acute fracture or dislocation in the pelvis and right hip with moderate osteoarthritic changes in the right hip. Patient also had a CT of his right hip showing minor spotting of the acetabulum no fracture or significant hip joint space narrowing. 07/10/2020 Patient is seen and evaluated and follow-up currently sitting up in the chair with no acute overnight issues. Patient continues to have right hip pain which is chronic and has been seen and evaluated by orthopedic surgery recommending outpatient follow-up with no surgical intervention at this time. Patient urine culture showing Aerococcus urinae colonized and maintained on IV ceftriaxone and will likely transition to oral antibiotics upon discharge. Patient continues to be weak and was seen and evaluated by PT/OT therapy recommending subacute rehab as he lives alone and gait remains unsteady. Awaiting authorization from insurance company and accepting facility. Social work Is following and accommodating ECF placement. Creatinine slightly improved at 1.5, sodium is 141 with a potassium of 4.8 will continue with low potassium diet. White blood count continues to be slightly elevated at 14.33 and hemoglobin is stable at 1 4.6. Patient is afebrile. Review of systems: Constitutional: No reports of fatigue, fever, or chills Cardiovascular: No reports of chest pain or palpitations Respiratory: No reports of shortness of breath or cough GI: No reports of nausea, vomiting, or diarrhea : No reports of dysuria or retention Neurovascular: Reports continued weakness All medications have been reviewed Objective - Vital Signs Vital signs: Vital Signs Temp 98.5 F 07/10/20 08:00 Pulse 61 07/10/20 08:00 Resp 16 07/10/20 08:00 BP 164/78 07/10/20 08:00 Pulse Ox 96 07/10/20 08:00 Intake & Output 07/09/20 07/10/20 07/10/20 18:59 06:59 18:59 Intake Total 200 Balance 200 Weight 99.5 kg Intake: Oral 200 Other: # Voids 1 - Exam GENERAL: Elderly male sitting up in the chair appears to be in no acute distress. HEENT: Pupils are round and equally reacting to light. EOMI. No scleral icterus. No conjunctival pallor. Normocephalic, atraumatic. No pharyngeal erythema. No thyromegaly. CARDIOVASCULAR: S1 and S2 present. PULMONARY: Bilateral breath sounds are positive. No wheeze or crackles. ABDOMEN: Soft, nontender, nondistended, normoactive bowel sounds. No palpable organomegaly. No CVA tenderness MUSCULOSKELETAL: Right hip exam- no swelling or tenderness or redness in the right hip. EXTREMITIES: No cyanosis, clubbing, or pedal edema. NEUROLOGICAL: patient is alert awake oriented 3 .Gross neurological examination did not reveal any focal deficits. SKIN: No rashes. - Labs CBC & Chem 7: 07/10/20 07:12 07/10/20 07:12 Labs: Abnormal Lab Results - Last 24 Hours (Table) 07/10/20 Range/Units 07:12 WBC 14.33 H (4.50-10.00) X 10*3/uL MCHC 31.1 L (32.0-37.0) g/dL MPV 12.9 H (9.5-12.2) fL Immature Gran # 0.15 H (0.00-0.04) X 10*3/uL Neutrophils # 11.94 H (1.80-7.70) X 10*3/uL Lymphocytes # 0.63 L (0.90-5.00) X 10*3/uL Monocytes # 1.50 H (0.20-1.00) X 10*3/uL Microbiology - Last 24 Hours (Table) 07/08/20 19:38 Blood Culture - Preliminary Blood No Growth after 24 hours 07/08/20 19:25 Blood Culture - Preliminary Blood No Growth after 24 hours 07/08/20 17:05 Urine Culture - Final Urine,Voided Aerococcus urinae Assessment and Plan Assessment: Right hip pain secondary to osteoarthritis and bone spurring Urinary tract infection Hyperkalemia Leukocytosis Systolic congestive heart failure with ejection fraction 25-30% Coronary artery disease status post CABG Prostrated disorder Obstructive sleep apnea History of nephrolithiasis Hypertension Hyperlipidemia Stents in bilateral lower extremities PLAN: Patient coming in with right hip pain secondary to osteoarthritis continue with pain management. Patient had urinalysis that was positive for nitrates and leukocyte esterase started on ceftriaxone with pending urine cultures. Urine culture finalized showing colonized Aerococcus urinae. Transition to oral antibiotics upon discharge to ECF to complete the course. Patient has been restarted on medications. GI / DVT prophylaxis. Further recommendations to follow depending on the progress of the patient. PT/OT therapy evaluated the patient recommending subacute rehab and awaiting for authorization from insurance and accepting facility. Social work is following and working on discharge planning to ECF. Possible discharge in 24 hours.
[2020-07-10] MEDS: ENOXAPARIN 40 MG/0.4 ML SYRINGE SQ SCH (17:21)
[2020-07-10] MEDS: FAMOTIDINE 20 MG TAB PO SCH (20:03)
[2020-07-10] MEDS: ATORVASTATIN 80 MG TAB PO SCH (20:03)
[2020-07-10] MEDS: SODIUM CHLORIDE 0.9% 1,000 ML IV SCH (20:09)
[2020-07-11 07:51] VITALS: BP 161/67; PULSE 69; RESP 16; TEMP 97.7
[2020-07-11] MEDS: NON FORMULARY DRUG (Mirabegron [Myrbetriq] 25 MG Tab.Er.24h) PO SCH (08:47)
[2020-07-11] MEDS: LOSARTAN 25 MG TAB PO SCH (08:48)
[2020-07-11] MEDS: SPIRONOLACTONE 25 MG TAB PO SCH (08:48)
[2020-07-11] MEDS: carvediloL 12.5 MG TAB PO SCH (08:48)
[2020-07-11] MEDS: POTASSIUM CHLORIDE ER 20 MEQ TAB.ER PO SCH (08:48)
[2020-07-11] MEDS: TAMSULOSIN 0.4 MG CAP.ER.24H PO SCH (08:48)
[2020-07-11] MEDS: HYDROcodone/APAP 5-325MG 1 EACH TAB PO PRN (09:00)
[2020-07-11] MEDS ORDERED: DOCUSATE 100 MG CAP PO SCH (09:00)
--- NOTE | 2020-07-11 13:03 | P.DS ---
Providers Date of admission: 07/08/20 19:42 Expected date of discharge: 07/11/20 Attending physician: Cristina Pillai Consults: 07/08/20 19:10 Consult Physician Routine Consulting Provider: Aiden Starr Consult Reason/Comments: hip pain, unable to ambulate Do you want consulting provider notified?: Yes Primary care physician: Emilee Wright Hospital Course: Final diagnosis Right hip pain secondary to osteoarthritis and bone spurring Urinary tract infection Hyperkalemia Leukocytosis Systolic congestive heart failure with ejection fraction 25-30% Coronary artery disease status post CABG Prostrated disorder Obstructive sleep apnea History of nephrolithiasis Hypertension Hyperlipidemia Stents in bilateral lower extremities Discharge disposition Patient is being discharged in a stable condition with guarded prognosis to [facility] for continued PT/OT therapy. Patient will follow-up with Dr. Emilee Wright in the outpatient setting upon discharge. Patient is to continue with oral antibiotics in the form of Ceftin 500 mg twice daily for the next 4 days and then may discontinue. Patient will also follow-up with Dr. Starr orthopedic outpatient. Total time taken is greater than 35 minutes. Hospital course Mr. Marshall is a 75-year-old male with a past medical history of coronary artery disease, congestive heart failure, CVA/TIA, hypertension, hyperlipidemia, prostate disorder, renal disease, obstructive sleep apnea, nephrolithiasis coming in with a chief complaint of right hip pain. Patient states that he has been having right hip pain for the past 2 days and that he can hardly bear weight on his left lower extremities and that he has alone in a two-story building. Patient denies having any fevers chills or rigors. Denies having any complaints of increased frequency of urination or low back pain. Patient denies having any chest pain or palpitations. No cough or difficulty in breathing. No abdominal pain nausea vomiting or diarrhea. No history of constipation. In the ER at the time of admission patient's vitals temperature 90.8, heart rate 74, respiratory rate 18, blood pressure 90 persisted, saturating at 99% on room air. On reviewing the labs white count of 15, hemoglobin 16, platelets 142. Sodium 135, potassium 5.7, chloride 106, bicarbonate 17, BUN 34, creatinine 1.7 . Urinalysis is positive for moderate blood and large leukocyte esterase and moderate WBC clumps with WBCs more than 182. [place] Virus is PCR is negative. Patient had an x-ray of his right hip showing no acute fracture or dislocation in the pelvis and right hip with moderate osteoarthritic changes in the right hip. Patient also had a CT of his right hip showing minor spotting of the acetabulum no fracture or significant hip joint space narrowing. 07/10/2020 Patient is seen and evaluated and follow-up currently sitting up in the chair with no acute overnight issues. Patient continues to have right hip pain which is chronic and has been seen and evaluated by orthopedic surgery recommending outpatient follow-up with no surgical intervention at this time. Patient urine culture showing Aerococcus urinae colonized and maintained on IV ceftriaxone and will likely transition to oral antibiotics upon discharge. Patient continues to be weak and was seen and evaluated by PT/OT therapy recommending subacute rehab as he lives alone and gait remains unsteady. Awaiting authorization from insurance company and accepting facility. Social work Is following and accommodating ECF placement. Creatinine slightly improved at 1.5, sodium is 141 with a potassium of 4.8 will continue with low potassium diet. White blood count continues to be slightly elevated at 14.33 and hemoglobin is stable at 14.6. Patient is afebrile. 07/11/2020 The seen and evaluated in follow-up with no acute issues overnight. Patient will continue with pain medications and physical therapy at the ECF and will follow-up with orthopedics outpatient. Patient will continue on oral antibiotics in the form of Ceftin 500 mg twice daily for the next 4 days and then may discontinue. Recommend repeat labs in 2-3 days to monitor kidney functions along with white blood count Currently no reports of chest pain,shortness of breath, or palpitations. Patient is afebrile. No reports of nausea or vomiting and patient is tolerating diet. Patient will be going to [facility] today. On exam vital signs are stable. Cardio S1, S2 are muffled. Respiratory system shows diminished breath sounds at the bases with no wheezing or rhonchi noted. Abdomen is soft and obese, and nontender. Nervous system shows diffuse weakness. Please refer to medication reconciliation sheet for a list of medications. Patient Condition at Discharge: Stable Plan - Discharge Summary Discharge Rx Participant: No New Discharge Prescriptions: New Docusate [Colace] 100 mg PO BID cap Losartan [Cozaar] 25 mg PO DAILY tab HYDROcodone/APAP 5-325MG [[place] 5-325] 1 each PO Q6HR PRN #6 tab PRN Reason: Pain Cefuroxime Axetil [Ceftin] 500 mg PO BID 4 Days #8 tab Continue Tamsulosin [Flomax] 0.4 mg PO DAILY Famotidine 20 mg PO HS Atorvastatin [Lipitor] 80 mg PO HS Mirabegron [Myrbetriq] 25 mg PO DAILY Spironolactone [Aldactone] 25 mg PO DAILY Carvedilol [Coreg] 12.5 mg PO BID Potassium Chloride ER [K-Dur 20] 20 meq PO DAILY Discontinued Losartan Potassium 25 mg PO DAILY Discharge Medication List Famotidine 20 mg PO HS 07/06/17 [History] Tamsulosin [Flomax] 0.4 mg PO DAILY 07/06/17 [History] Atorvastatin [Lipitor] 80 mg PO HS 07/08/20 [History] Carvedilol [Coreg] 12.5 mg PO BID 07/08/20 [History] Mirabegron [Myrbetriq] 25 mg PO DAILY 07/08/20 [History] Potassium Chloride ER [K-Dur 20] 20 meq PO DAILY 07/08/20 [History] Spironolactone [Aldactone] 25 mg PO DAILY 07/08/20 [History] Cefuroxime Axetil [Ceftin] 500 mg PO BID 4 Days #8 tab 07/11/20 [Rx] Docusate [Colace] 100 mg PO BID cap 07/11/20 [Rx] HYDROcodone/APAP 5-325MG [[place] 5-325] 1 each PO Q6HR PRN #6 tab 07/11/20 [Rx] Losartan [Cozaar] 25 mg PO DAILY tab 07/11/20 [Rx] Follow up Appointment(s)/Referral(s): Emilee Wright DO [Primary Care Provider] - 1-2 days Aiden Starr MD [STAFF PHYSICIAN] - 2 Weeks Ambulatory/Diagnostic Orders: Complete Blood Count w/diff [LAB.AMB] Time Frame: 3 Days, Location: None Selected Activity/Diet/Wound Care/Special Instructions: Patient is going to [facility] Activity as tolerated continue physical therapy continue antibiotics for the next 4 days and then may discontinue Follow-up outpatient with orthopedics Repeat labs for CBC BMP in 2-3 days Continue with heart healthy diet Discharge Disposition: TRANSFER TO SNF/ECF
== END 2020-07-11 16:17 ==
LOC: EC 15:33 → 4SSUR 19:42
PROVIDERS: ADMIT Internal Medicine; ATTEND Internal Medicine
DX: M16.11 Unilateral primary osteoarthritis, right hip (principal); N39.0 Urinary tract infection, site not specified; I11.0 Hypertensive heart disease with heart failure; I50.20 Unspecified systolic (congestive) heart failure; I25.10 Atherosclerotic heart disease of native coronary artery without angina pectoris; N40.1 Benign prostatic hyperplasia with lower urinary tract symptoms; E78.5 Hyperlipidemia, unspecified; I42.9 Cardiomyopathy, unspecified; E87.5 Hyperkalemia; G47.33 Obstructive sleep apnea (adult) (pediatric); Z99.89 Dependence on other enabling machines and devices; E80.7 Disorder of bilirubin metabolism, unspecified; R62.7 Adult failure to thrive; E66.9 Obesity, unspecified; Z68.29 Body mass index [BMI] 29.0-29.9, adult; Z20.822 Contact with and (suspected) exposure to COVID-19; Z79.899 Other long term (current) drug therapy; Z88.2 Allergy status to sulfonamides; Z87.442 Personal history of urinary calculi; Z95.1 Presence of aortocoronary bypass graft; Z95.828 Presence of other vascular implants and grafts; Z95.810 Presence of automatic (implantable) cardiac defibrillator; Z87.891 Personal history of nicotine dependence; Z98.890 Other specified postprocedural states; Z86.73 Personal history of transient ischemic attack (TIA), and cerebral infarction without residual deficits; Z81.1 Family history of alcohol abuse and dependence; Z84.2 Family history of other diseases of the genitourinary system
CPT/HCPCS: 96366 ×2; 96372 ×2; 96361; 96365; 96375; 99285; 36415; 93005; 97116 ×2; 97162; 97530 ×2; 97166; 80053; 80048 ×2; 83605; 85025 ×3; 81001; 87040; 87086; 87635; 73502; 73700; G0378 ×4; J0696 ×3; J1650 ×2; J2270; J1885